=== PATIENT | female | born 1945 | race Caucasian/White ===

== ENCOUNTER 2017-03-12 08:47 | Day surgery (SDC) | payer MEDICARE, BC ==
[~2017-03-12 08:47] MED LIST: Buffered Lidocaine 0.9% SYRIN* 5 ML/SYR SYRINGE INTRADERM ONE; Famotidine IV* 10 MG/ML 2 ML (20 mg) IV ONE
[2017-03-12] MEDS ORDERED: Famotidine IV* 10 MG/ML 2 ML (20 mg) ONE (09:24)
[2017-03-12] MEDS ORDERED: fentaNYL* 50 MCG/ML 2 ML VIAL (100 MCG VIAL) ONE (09:35)
[2017-03-12] MEDS ORDERED: Midazolam* 1 MG/ML 2 ML VIAL (2 MG) ONE (09:35)
[2017-03-12] MEDS ORDERED: Oxymetazoline 0.05% NASAL SPR* 15 ML BTL ONE ×2 (09:44→10:18)
[2017-03-12] MEDS ORDERED: Lidocaine 4% TOPICAL* 50 ML TOP.SOLN ONE (10:18)
[2017-03-12] MEDS ORDERED: Lidocaine 1% MPF wEPI 200,000* 30 ML SDV ONE (10:18)
[2017-03-12] MEDS ORDERED: Bacitracin OINTMENT* 0.5% 0.5 oz TUBE ONE (10:19)
[2017-03-12] MEDS ORDERED: Lidocaine 2% PF * 5 ML VIAL ONE (11:07)
[2017-03-12] MEDS ORDERED: Propofol* 10 MG/ML 20 ML BTL IV PUSH ONE (11:07)
[2017-03-12] MEDS ORDERED: DiMENhydriNATE IV* 50 MG/ML VIAL ONE (11:07)
[2017-03-12] MEDS ORDERED: Ondansetron INJ* 2 MG/ML VIAL ONE (11:07)
[2017-03-12] MEDS ORDERED: Dexamethasone IV* 4 MG/ML 1 ML (4 MG) ONE (11:07)
[2017-03-12] MEDS ORDERED: Naloxone* 0.4 MG/ML 1 ML VIAL IV PRN (11:23)
[2017-03-12] MEDS ORDERED: Acetaminophen TAB* 325 MG PO PRN (11:23)
[2017-03-12] MEDS ORDERED: oxyCODONE TAB* 5 MG TAB PO PRN (11:23)
[2017-03-12] MEDS ORDERED: HYDROmorphone INJ* 1 MG/ML CARPUJECT SYRINGE IV PRN (11:23)
[2017-03-12] MEDS ORDERED: DiMENhydriNATE IV* 50 MG/ML VIAL IV PUSH PRN (11:23)
[2017-03-12 13:27] VITALS: BP 164/83
--- NOTE | 2017-03-13 09:17 | OP ---
DATE OF OPERATION: 03/12/17 - [facility] DATE OF : 41 SURGEON: Mahamed Ennis MD ANESTHESIA: General. PRE-OP DIAGNOSES: Polyp, left nasal cavity and chronic left ethmoid sinusitis. POST-OP DIAGNOSES: Polyp, left nasal cavity and chronic left ethmoid sinusitis. OPERATIVE PROCEDURE: Endoscopic resection of intranasal polyp with posterior ethmoidectomy on the left. EBL: Approximately 40 cc. SPECIMENS: Left sinus contents. INDICATIONS: This is a 71-year-old woman with a history of progressive left nasal airway obstruction. On exam in the office, she had a large burden of polyp in the posterior nasal cavity. CT scan revealed opacification of posterior ethmoid air cells with a large mass filling the nasal cavity. Decision was made to bring the patient to the operating room for endoscopic resection of her left nasal cavity polyp and sinus surgery. DESCRIPTION OF PROCEDURE: On 03/12/17, the patient was brought to the operating room. General anesthesia was induced and oral endotracheal tube was placed. The patient was draped and a time-out was performed. The left nasal cavity was previously decongested with Afrin and topicalized with lidocaine. Additional 1% lidocaine with epinephrine was then infiltrated into the left middle turbinate both at its body and at its root, the left lateral nasal wall and the polyp. There was what appeared to be 1 polypoid mass emanating from the posterior ethmoid region. This was removed piecemeal. It was tracked back up towards the skull base. A portion of the superior turbinate was removed, which facilitated exposure of the posterior ethmoid air cells, which were opened widely while obvious polypoid material was removed. There was no evidence of infection. There was some bleeding from the mucosal edge of the inferior extent of the dissection and an endoscopic bipolar was used to control that. Once good hemostasis was achieved, the patient was then returned to the care of the anesthesiologist, extubated, and delivered to the PACU in a stable condition. [id number] #: [id number] MTDD
== END 2017-03-12 13:27 | disposition home or self-care (01) ==
LOC: OR 08:47
PROVIDERS: ATTEND Otolaryngology
DX: J33.8 Other polyp of sinus (principal); J32.9 Chronic sinusitis, unspecified; E11.9 Type 2 diabetes mellitus without complications; Z79.84 Long term (current) use of oral hypoglycemic drugs; I10 Essential (primary) hypertension; E78.00 Pure hypercholesterolemia, unspecified; J45.909 Unspecified asthma, uncomplicated; M19.90 Unspecified osteoarthritis, unspecified site; H40.9 Unspecified glaucoma; J30.1 Allergic rhinitis due to pollen
CPT/HCPCS: 88305; A9270-GY; J1100; J1240; J2001; J2250; J2405; J2704; J3010

== ENCOUNTER 2017-07-31 07:45 | Emergency (ER) | payer MEDICARE, BC ==
--- OUTSIDE RECORDS SUMMARY | 2017-07-31 08:19 | XMS REPORT ---
:1945 External Reference #:[id number] Author Organization [facility] Address [address] [address] Phone [phone] Care Team Providers Name Role Phone Tin Allison MD Primary Care Physician Unavailable Payers Type Date Identification Numbers Payment Provider Subscriber Medicare Primary Policy Number: [id number] Medicare Daniel Cooper PayID: [id number] [address] [place] [address] Medigap Part B Policy Number: [id number] [employer]ets Daniel Cooper PayID: [id number] [address] [address] [place] [address] Problems Description No Information Family History Date Family Member(s) Problem(s) Comments General Heart Disease General Diabetes General Cancer Social History Type Date Description Comments Lives With Alone Occupation Retired ETOH Use Currently consumes alcohol Smoking Patient is a former smoker Stopped 20+ years ago Exercise Type/Frequency Exercises regularly Allergies, Adverse Reactions, Alerts Date Description Reaction Status Severity Comments 01/08/2014 Penicillin active 01/08/2014 Cephalosporins active 01/08/2014 Codeine active 01/08/2014 Tape active 10/03/2014 Tetracycline active Medications Medication Date Status Form Strength Qnty SIG Indications Ordering Provider Metformin HCL Active 500mg Unknown 000 Alphagan P Active Unknown 000 Avapro Active 150mg Unknown 000 Simvastatin Active mg Unknown 000 Fluoxetine HCL Active 20mg Unknown 000 Ibuprofen Active 600mg Unknown 000 Acetaminophen ER Active Unknown 000 Glucophage Active 5mg Unknown 000 Avapro Active Tablets 150mg 1 by Unknown 000 mouth every day Glipizide ER Hx Tablets ER 2.5mg 1 by Unknown 000 - 24HR mouth every 018 day Medications Administered in Office Medication Date Status Form Strength Qnty SIG Indications Ordering Provider Depomedrol Administered Injection Dirk Harmony, 40MG 018 M.D. Depomedrol Administered Injection Dirk Harmony, 40MG 018 M.D. Vital Signs Date Vital Result Comment 07/28/2017 Height 60.5 inches 5'0.50" Weight 203.00 lb BP Systolic 118 mmHg BP Diastolic 68 mmHg Respiratory Rate 20 /min Body Temperature 98.2 F Pain Level 4 BMI (Body Mass Index) 39.0 kg/m2 06/07/2017 Height 60.5 inches 5'0.50" Weight 203.00 lb BP Systolic 124 mmHg BP Diastolic 76 mmHg Respiratory Rate 20 /min Body Temperature 97.7 F Pain Level 5 BMI (Body Mass Index) 39.0 kg/m2 05/10/2017 Height 60.5 inches 5'0.50" Weight 203.00 lb BP Systolic 122 mmHg BP Diastolic 72 mmHg Respiratory Rate 20 /min Pain Level 4 BMI (Body Mass Index) 39.0 kg/m2 03/24/2017 Height 60.5 inches 5'0.50" Weight 203.00 lb Heart Rate 97 /min BP Systolic 148 mmHg BP Diastolic 76 mmHg Body Temperature 97.6 F BMI (Body Mass Index) 39.0 kg/m2 03/03/2017 Height 60.5 inches 5'0.50" Weight 203.00 lb BP Systolic 124 mmHg BP Diastolic 78 mmHg Respiratory Rate 20 /min Pain Level 4 BMI (Body Mass Index) 39.0 kg/m2 02/01/2017 Height 60.5 inches 5'0.50" Weight 203.00 lb BP Systolic 138 mmHg BP Diastolic 86 mmHg Respiratory Rate 14 /min Body Temperature 98.5 F Pain Level 5 BMI (Body Mass Index) 39.0 kg/m2 09/16/2016 Height 60.5 inches 5'0.50" Weight 203.00 lb Heart Rate 78 /min BP Systolic 140 mmHg BP Diastolic 76 mmHg Body Temperature 97.5 F Pain Level 1 BMI (Body Mass Index) 39.0 kg/m2 10/03/2014 Height 60 inches 5'0" Weight 215.00 lb Heart Rate 77 /min BP Systolic Sitting 127 mmHg BP Diastolic Sitting 76 mmHg Respiratory Rate 18 /min Pain Level 2 BMI (Body Mass Index) 42.0 kg/m2 02/26/2014 Height 60 inches 5'0" Weight 210.00 lb Pain Level 1 BMI (Body Mass Index) 41.0 kg/m2 01/29/2014 Height 60 inches 5'0" Weight 210.00 lb Pain Level 2 BMI (Body Mass Index) 41.0 kg/m2 01/08/2014 Height 60 inches 5'0" Weight 210.00 lb Heart Rate 74 /min BP Systolic 155 mmHg BP Diastolic 76 mmHg BMI (Body Mass Index) 41.0 kg/m2 Results Test Date Test Result H/L Range Note Laboratory test 03/12/2017 Point of Care 235 mg/dL High 70-100 1 finding Glucose Laboratory test 03/12/2017 Surgical Pathology SEE RESULT BELOW 2 finding Laboratory test 03/12/2017 Point of Care 220 mg/dL High 70-100 3 finding Glucose 1 Resource Coordinator: [id number] 2 SEE RESULT BELOW Name: COOPERDANIEL M : [address]: Mahamed Ennis MD Acct: [id number] Unit: [id number] AGE: 71 Location: OR Re03/12/17 SEX: F [place] [facility]C: [id number] TRIXIE: 03/12/17-[address] [facility] [address]: Mahamed Ennis MD REQ: [id number] RECD: 03/12/179 STATUS: SOUT _ ORDERED: LEVEL 4 FINAL DIAGNOSIS Left sinus, excision: -- Benign sinonasal polyp. -- Chronic sinusitis. PRE-OPERATIVE DIAGNOSIS Other polyp of sinus GROSS DESCRIPTION The specimen is received in formalin labeled, Left Sinus Contents, and consists of a 5.0 x 4.8 by up to 0.7 cm aggregate of white-pink filamentous to papilliferous multilocular fish-flesh colored rubbery tissue fragments admixed with translucent yellow lobulated rubbery tissue fragments. The specimen is filtered, differentially inked and serially sectioned and entirely submitted in cassettes A through G to include infiltrate in cassette G. Signed (signature on file) Lola Murphy MD 0857 END OF REPORT * ML=Testing performed at Main Lab DEPARTMENT OF PATHOLOGY, [address] [place] [address] Sergei Rose M.D. Director [facility] # [id number] 3 Resource Coordinator: [id number] Procedures Date CPT Code Description Status 07/28/2017 Inject/Drain Joint/Bursa Major Completed 06/07/2017 Inject/Drain Joint/Bursa Major Completed 03/03/2017 Inject/Drain Joint/Bursa Major Completed 01/29/2014 90457 Rad Shoulder Comp, Min. 2 Views Completed 01/08/2014 41422 Rad Shoulder Comp, Min. 2 Views Completed 01/08/2014 87101 Closed TX Of Greater Humeral Tuberosity FX;W/O Completed Manipulation 01/08/2014 21971 Closed trtmt prox humeral fx Completed Encounters Type Date Location Provider CPT E/M Dx Office Visit 06/07/2017 9:45a [facility] M.D. 57637 M17.11 [facility] Office Visit 05/10/2017 10:45a [facility] M.D. 16020 M17.11 [facility] Office Visit 03/24/2017 10:30a [facility] M.D. 73855 M17.11 [facility] M22.41 Office Visit 03/03/2017 10:45a [facility] M.D. 13834 S76.111A [facility] M17.11 Office Visit 02/01/2017 9:45a [facility] M.D. 09996 S76.111A [facility] Office Visit 09/16/2016 9:30a [facility] M.D. 25170 M17.11 [facility] Office Visit 10/03/2014 1:30p [facility] M.D. 32257 836.0 [facility] 715.96 Plan of Care Future Appointment(s):09/13/2017 9:45 am - [facility] Antunez M.D. at [facility]08/10/2017 7:30 am - JANNA Ni at [facility]08/10/2017 7:30 am - [facility]ar Antunez M.D. at [facility]07/28/2017 - [facility]ar Antunez M.D.M17.11 Unilateral primary osteoarthritis, right kneeNew Xrays:Kneeright 4+ VWSKnees BilateralFollow up:Follow up: to ORM17.12 Unilateral primary osteoarthritis, left kneeNew Xrays:Knees Bilateral
--- OUTSIDE RECORDS SUMMARY | 2017-07-31 08:23 | XMS REPORT ---
:1945 External Reference #:[id number] Author Organization [facility] Address [address] [place] [address] Phone [phone] Care Team Providers Name Role Phone Tin Allison M.D. Care Team Information Paperboard Boxes Estimator Unavailable Tin Allison M.D. Primary Care Physician Unavailable Payers Type Date Identification Numbers Payment Provider Subscriber Medicare Primary Effective: Policy Number: Medicare-National Patricia Cooper 2008 [id number] GVT.Sys PayID: [id number] [address] [place] [address] Medigap Part B Expires: 2009 Policy Number: BC/BS Of AUDRA Cooper [id number] Group Number: [id number] [address] PayID: [id number] [place] [address] Medigap Part B Effective: 2012 Policy Number: BC/BS Of AUDRA Cooper [id number] PayID: [id number] [address] [place] [address] Problems Date Description Provider Status Onset: 07/07/2016 Uncomplicated moderate persistent Zoie St M.D. Active asthma Onset: 01/15/2015 Chronic maxillary sinusitis Zoie St M.D. Active Onset: 01/08/[address] M.D. Active Onset: 12/25/2014 Allergic rhinitis due to animals Zoie St M.D. Active Onset: 12/11/2014 Body mass index 30+ - obesity SELENA Abrams Active Onset: 12/04/[address] M.D. Active Onset: 10/02/2014 Acute maxillary sinusitis Zoie St M.D. Active Onset: 06/26/2014 Extrinsic asthma without status Zoie St M.D. Active asthmaticus Onset: 06/26/2014 Allergic rhinitis due to pollen Zoie St M.D. Active Onset: 06/26/[address] M.D. 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 Has a window air conditioner Home Environment Stairs are present Home Environment The basement is dry Home Environment Unfinished Basement Home Environment Cotton Comforter Home Environment Mattress is 1 year old Home Environment Mattress is encased in an allergy proof case Home Environment Rubber Mattress Home Environment Pillows are encased in an allergy proof case Home Environment Pillows contain feathers Home Environment Pillows are polyester Home Environment Does not use a dehumidifier Home Environment There are draperies in the home Home Environment The home is not kandy Home Environment The floors are wood Home Environment The floors are carpeted Home Environment Uses natural gas heating Home Environment Uses baseboard heating Home Environment Uses electric heating Home Environment [place] Home Environment Water Source: Well Smoke-Free Home is smoke-free 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 albuterol Aerochamber 02/04/ Active Misc 1unit use as Radha Plus 2017 s KATHRYN Colindres Flovent HFA 02/03/ Active Aerosol 110mcg/Ac 12gm 2 puff J30.2 Zoie Garzon 2015 t inhalation Pieretti, twice a day M.D. Ventolin HFA 12/04/ Active Aerosol 108(90Bas 1unit 2 puffs Zoie Garzon 2014 e) s q4-6 hours Pieretti, mcg/Act as needed M.D. for shortness of breath, cough, wheezing and/or 15 min. prior to exercise Desloratadine 10/13/ Active Tablets 5mg 90tab one tablet Zoie Garzon 2012 s once daily Pieretti, by mouth M.D. Ibuprofen / Active Tablets 600mg Shallish, 0000 Tin, MLcD. Fluoxetine HCL / Active Capsules 20mg Shallish, 0000 Tin, MLcDLc Alphagan P / Active Solution 0.1% Arleo, 0000 MD Calr Metformin HCL / Active Tablets ER 500mg Shallish, ER 0000 24HR Tato Castle Irbesartan / Active Tablets 75MF once a day Shallish, 0000 every a Tin, other day M.D. Simvastatin / Active Tablets 10mg Shallish, 0000 Tin, MLcD. Fluticasone / Active Suspension 50mcg/Act 1 squirt Unknown Propionate 0000 each nostril daily Medications Administered in Office Medication Date Status Form Strength Qnty SIG Indications Ordering Provider Injection Administered Injection Allergy 018 Injection Injection Administered Injection Allergy 018 Injection Injection Administered Injection Allergy 018 Injection Injection Administered Injection Allergy 018 Injection Injection Administered Injection Allergy 018 Injection Injection Administered Injection Allergy 018 Injection Injection Administered Injection Allergy 018 Injection Injection Administered Injection Allergy 017 Injection Injection Administered Injection Allergy 017 Injection Injection Administered Injection Allergy 017 Injection Injection Administered Injection Allergy 017 Injection Injection Administered Injection Allergy 017 Injection Injection Administered Injection Allergy 017 Injection Injection Administered Injection Darby Jesus M.D. Injection Administered Injection Allergy 017 Injection Injection Administered Injection Allergy 017 Injection Injection Administered Injection Allergy 017 Injection Injection Administered Injection Allergy 017 Injection Injection Administered Injection Allergy 017 Injection Injection Administered Injection Murali Nava, 017 M.D. Injection Administered Injection Allergy 017 Injection Injection Administered Injection Allergy 017 Injection Injection Administered Injection Allergy 017 Injection Injection Administered Injection Murali Nava, 017 M.D. Injection Administered Injection Allergy 017 Injection Injection Administered Injection Murali Nava, 017 M.D. Injection Administered Injection Allergy 017 Injection Injection Administered Injection Allergy 017 Injection Injection Administered Injection Allergy 017 Injection Injection Administered Injection Allergy 017 Injection Injection Administered Injection Allergy 017 Injection Injection Administered Injection Allergy 017 Injection Injection Administered Injection Allergy 016 Injection Injection Administered Injection Allergy 016 Injection Injection Administered Injection Allergy 016 Injection Injection Administered Injection Allergy 016 Injection Injection Administered Injection Allergy 016 Injection Injection Administered Injection Allergy 016 Injection Injection Administered Injection Allergy 016 Injection Injection Administered Injection Allergy 016 Injection Injection Administered Injection Allergy 016 Injection Injection Administered Injection Allergy 016 Injection Injection Administered Injection Allergy 016 Injection Injection Administered Injection Murali Nava, 016 M.D. Injection Administered Injection Allergy 016 Injection Injection Administered Injection Allergy 016 Injection Injection Administered Injection Allergy 016 Injection Injection Administered Injection Allergy 016 Injection Injection Administered Injection Allergy 016 Injection Injection Administered Injection Allergy 016 Injection Injection Administered Injection Allergy 016 Injection Injection Administered Injection Allergy 016 Injection Injection Administered Injection Allergy 016 Injection Injection Administered Injection Allergy 016 Injection Injection Administered Injection Allergy 015 Injection Injection Administered Injection Allergy 015 Injection Injection Administered Injection Allergy 015 Injection Injection Administered Injection Allergy 015 Injection Injection Administered Injection Allergy 015 Injection Injection Administered Injection Allergy 015 Injection Injection Administered Injection Allergy 015 Injection Injection Administered Injection Allergy 015 Injection Injection Administered Injection Allergy 015 Injection Injection Administered Injection Allergy 015 Injection Injection Administered Injection Allergy 015 Injection Injection Administered Injection Allergy 015 Injection Injection Administered Injection Allergy 015 Injection Injection Administered Injection Allergy 015 Injection Injection Administered Injection Allergy 015 Injection Injection Administered Injection Allergy 015 Injection Injection Administered Injection Allergy 015 Injection Injection Administered Injection Allergy 015 Injection Injection Administered Injection Allergy 015 Injection Injection Administered Injection Allergy 015 Injection Injection Administered Injection Allergy 015 Injection Injection Administered Injection Allergy 015 Injection Injection Administered Injection Allergy 015 Injection Injection Administered Injection Allergy 015 Injection Injection Administered Injection Allergy 014 Injection Injection Administered Injection Allergy 014 Injection Injection Administered Injection Allergy 014 Injection Injection Administered Injection Lamont 014 Kendra, M.D. Injection Administered Injection Allergy 014 Injection Injection Administered Injection Lamont 014 Kendra, M.D. Injection Administered Injection Allergy 014 Injection Injection Administered Injection Lamont 014 Kendra, M.D. Injection Administered Injection Allergy 014 Injection Injection Administered Injection Lamont 014 Kendra, M.D. Injection Administered Injection Allergy 014 Injection Injection Administered Injection Allergy 014 Injection Injection Administered Injection Lamont 014 Kendra, M.D. Injection Administered Injection Allergy 014 Injection Injection Administered Injection Lamont 014 Kendra, M.D. Injection Administered Injection Allergy 014 Injection Injection Administered Injection Allergy 014 Injection Injection Administered Injection Allergy 014 Injection Injection Administered Injection Lamont 014 Kendra, M.D. Injection Administered Injection Allergy 014 Injection Injection Administered Injection Lamont 014 Kendra M.D. Injection Administered Injection Allergy 014 Injection Injection Administered Injection Lamont 014 Kendra M.D. Injection Administered Injection Allergy 014 Injection Injection Administered Injection Lamont 014 Kendra M.D. Injection Administered Injection Allergy 014 Injection Injection Administered Injection Allergy 014 Injection Injection Administered Injection Allergy 014 Injection Injection Administered Injection Lamont 014 Kendra M.D. Injection Administered Injection Allergy 014 Injection Injection Administered Injection Lamont 013 Kendra M.D. Injection Administered Injection Allergy 013 Injection Injection Administered Injection Lamont 013 Duran Gardner.D. Injection Administered Injection Allergy 013 Injection Injection Administered Injection Lamont 013 Duran Gardner.D. Injection Administered Injection Allergy 013 Injection Injection Administered Injection Lamont 013 Kendra M.DLc Injection Administered Injection Allergy 013 Injection Injection Administered Injection Zoie Duran St M.D. Injection Administered Injection Allergy 013 Injection Injection Administered Injection Lamont 013 Lizbeth GardnerDLc Injection Administered Injection Allergy 013 Injection Injection Administered Injection Lamont 013 Kendra M.D. Injection Administered Injection Allergy 013 Injection Injection Administered Injection Lamont 013 Kendra M.D. Injection Administered Injection Allergy 013 Injection Injection Administered Injection Lamont 013 Kendra M.D. Injection Administered Injection Allergy 013 Injection Injection Administered Injection Lamont 013 Kendra M.D. Injection Administered Injection Allergy 013 Injection Injection Administered Injection Lamont 013 Kendra M.D. Injection Administered Injection Allergy 013 Injection Injection Administered Injection Lamont 013 Kendra, M.D. Injection Administered Injection Allergy 013 Injection Injection Administered Injection Lamont 013 Kendra, M.D. Injection Administered Injection Allergy 013 Injection Injection Administered Injection Lamont 013 Kendra, M.D. Injection Administered Injection Unknown 013 Injection Administered Injection Lamont 013 Kendra, M.D. Injection Administered Injection Lamont 013 Kendra, M.D. Injection Administered Injection Lamont 013 Kendra, M.D. Injection Administered Injection Lamont 012 Kendra, M.D. Injection Administered Injection Lamont 012 Kendra, M.D. Injection Administered Injection Lamont 012 Kendra, M.D. Injection Administered Injection Lamont 012 Kendra, M.D. Injection Administered Injection Lamont 012 Kendra, M.D. Injection Administered Injection Lamont 012 Kendra, M.D. Injection Administered Injection Lamont 012 Kendra, M.D. Injection Administered Injection Lamont 012 Kendra, M.D. Injection Administered Injection Lamont 012 Kendra, M.D. Injection Administered Injection Lamont 012 Kendra, M.D. Injection Administered Injection Lamont 012 Kendra, M.D. Injection Administered Injection Lamont 012 Kendra, M.D. Injection Administered Injection Lamont 012 Kendra, M.D. Injection Administered Injection Lamont 012 Kendra, M.D. Injection Administered Injection Lamont 012 Kendra, M.D. Injection Administered Injection Lamont 012 Kendra, M.D. Injection Administered Injection Lamont 012 Kendra, M.D. Injection Administered Injection Lamont 012 Kendra, M.D. Injection Administered Injection Zoie St, M.D. Injection Administered Injection Lamont 011 Kendra, M.D. Injection Administered Injection Lamont 011 Kendra, M.D. Injection Administered Injection Lamont 011 Kendra, M.D. Injection Administered Injection Lamont 011 Kendra, M.D. Injection Administered Injection Lamont 011 Kendra, M.D. Injection Administered Injection Lamont 011 Kendra, M.D. Injection Administered Injection Lamont 011 Kendra, M.D. Injection Administered Injection Lamont 011 Kendra, M.D. Injection Administered Injection Lamont 011 Kendra, M.D. Injection Administered Injection Lamont 011 Kendra, M.D. Injection Administered Injection Lamont 011 Kendra, M.D. Injection Administered Injection Lamont 011 Kendra, M.D. Injection Administered Injection Lamont 011 Kendra, M.D. Injection Administered Injection Lamont 011 Kendra, M.D. Injection Administered Injection Lamont 011 Kendra, M.D. Injection Administered Injection Lamont 011 Kendra, M.D. Injection Administered Injection Lamont 011 Kendra, M.D. Injection Administered Injection Lamont 011 Kendra, M.D. Injection Administered Injection Lamont 011 Kendra, M.D. Injection Administered Injection Lamont 011 Kendra, M.D. Injection Administered Injection Lamont 011 Kendra, M.D. Injection Administered Injection Lamont 011 Kendra, M.D. Injection Administered Injection Lamont 011 Kendra, M.D. Injection Administered Injection Lamont 010 Kendra, M.D. Injection Administered Injection Lamont 010 Kendra, M.D. Injection Administered Injection Lamont 010 Kendra, M.D. Injection Administered Injection Lamont 010 Kendra, M.D. Injection Administered Injection Lamont 010 Kendra, M.D. Injection Administered Injection Lamont 010 Kendra, M.D. Injection Administered Injection Lamont 010 Kendra, M.D. Injection Administered Injection Zoie M 010 Maciel, M.D. Injection Administered Injection Lamont 010 Kendra, M.D. Injection Administered Injection Lamont 010 Kendra, M.D. Injection Administered Injection Lamont 010 Kendra, M.D. Injection Administered Injection Lamont 010 Kendra, M.D. Injection Administered Injection Lamont 010 Kendra, M.D. Injection Administered Injection Lamont 010 Kendra, M.D. Injection Administered Injection Lamont 010 Kendra, M.D. Injection Administered Injection Lamont 010 Kendra, M.D. Injection Administered Injection Lamont 010 Kendra, M.D. Injection Administered Injection Lamont 010 Kendra, M.D. Injection Administered Injection Lamont 010 Kendra, M.D. Injection Administered Injection Lamont 010 Kendra, M.D. Injection Administered Injection Lamont 010 Kendra, M.D. Injection Administered Injection Duran Olmedo.D. Injection Administered Injection Lamont 009 Kendra, M.D. Injection Administered Injection Lamont 009 Kendra, M.D. Injection Administered Injection Lamont 009 Kendra, M.D. Injection Administered Injection Lamont 009 Kendra, M.D. Injection Administered Injection Lamont 009 Kendra, M.D. Injection Administered Injection Lamont 009 Kendra, M.D. Injection Administered Injection Lamont 009 Kendra, M.D. Injection Administered Injection Lamont 009 Kendra, M.D. Injection Administered Injection Lamont 009 Kendra, M.D. Injection Administered Injection Lamont 009 Kendra, M.D. Injection Administered Injection Lamont 009 Kendra, M.D. Injection Administered Injection Lamont 009 Kendra, M.D. Injection Administered Injection Lamont 009 Kendra, M.D. Injection Administered Injection Lamont 009 Kendra, M.D. Injection Administered Injection Lamont 009 Kendra, M.D. Injection Administered Injection Lamont 009 Kendra, M.D. Injection Administered Injection Lamont 009 Kendra, M.D. Injection Administered Injection Lamont 009 Kendra, M.D. Injection Administered Injection Lamont 009 Kendra, M.D. Injection Administered Injection Lamont 009 Kendra, M.D. Injection Administered Injection Lamont 009 Kendra, M.D. Injection Administered Injection Lamont 008 Kendra, M.D. Injection Administered Injection Lamont 008 Kendra, M.D. Injection Administered Injection Lamont 008 Kendra, M.D. Injection Administered Injection Lamont 008 Kendra, M.D. Injection Administered Injection Lamont 008 Kendra, M.D. Injection Administered Injection Lamont 008 Kendra, M.D. Injection Administered Injection Lamont 008 Kendra, M.D. Injection Administered Injection Lamont 008 Kendra, M.D. Injection Administered Injection Lamont 008 Kendra, M.D. Injection Administered Injection Lamont 008 Kendra, M.D. Injection Administered Injection Lamont 008 Kendra, M.D. Injection Administered Injection Lamont 008 Kendra, M.D. Injection Administered Injection Lamont 008 Kendra, M.D. Injection 06/12/2 Administered Injection Lamont 008 Kendra, M.D. Injection Administered Injection Lamont 008 Kendra, M.D. Injection Administered Injection Lamont 008 Kendra, M.D. Injection Administered Injection Lamont 008 Kendra, M.D. Injection Administered Injection Lamont 008 Kendra, M.D. Injection Administered Injection Lamont 008 Kendra, M.D. Injection Administered Injection Lamont 008 Kendra, M.D. Injection Administered Injection Lamont 008 Kendra, M.D. Injection Administered Injection Lamont 008 Kendra, M.D. Injection Administered Injection Lamont 008 Kendra, M.D. Injection Administered Injection Lamont 008 Kendra, M.D. Injection Administered Injection Lamont 007 Kendra, M.D. Injection Administered Injection Lamont 007 Kendra, M.D. Injection Administered Injection Lamont 007 Kendra, M.D. Injection Administered Injection Lamont 007 Kendra, M.D. Injection Administered Injection Lamont 007 Kendra, M.D. Injection Administered Injection Lamont 007 Kendra, M.D. Injection Administered Injection Lamont 007 Kendra, M.D. Injection Administered Injection Lamont 007 Kendra, M.D. Injection Administered Injection Lamont 007 Kendra, M.D. Injection Administered Injection Lamont 007 Kendra, M.D. Injection Administered Injection Lamont 007 Kendra, M.D. Injection Administered Injection Lamont 007 Kendra, M.D. Injection Administered Injection Lamont 007 Kendra, M.D. Injection Administered Injection Lamont 007 Kendra, M.D. Injection Administered Injection Lamont 007 Kendra, M.D. Injection Administered Injection Lamont 007 Kendra, M.D. Injection Administered Injection Lamont 007 Kendra, M.D. Injection Administered Injection Lamont 006 Kendra, M.D. Injection Administered Injection Lamont 006 Kendra, M.D. Injection Administered Injection Lamont 006 Kendra, M.D. Injection Administered Injection Lamont 006 Kendra, M.D. Injection Administered Injection Lamont 006 Kendra, M.D. Injection Administered Injection Lamont 006 Kendra, M.D. Injection Administered Injection Lamont 006 Kendra, M.D. Injection Administered Injection Lamont 006 Kendra, M.D. Injection Administered Injection Lamont 006 Kendra, M.D. Injection Administered Injection Lamont 006 Kendra, M.D. Injection Administered Injection Lamont 006 Kendra, M.D. Injection Administered Injection Lamont 006 Kendra, M.D. Injection Administered Injection Lamont 006 Kendra, M.D. Injection Administered Injection Lamont 006 Kendra, M.D. Injection Administered Injection Lamont 006 Kendra, M.D. Injection Administered Injection Lamont 006 Kendra, M.D. Injection Administered Injection Lamont 006 Kendra, M.D. Injection Administered Injection Lamont 006 Kendra, M.D. Injection Administered Injection Lamont 006 Kendra, M.D. Injection Administered Injection Lamont 005 Kendra, M.D. Injection Administered Injection Lamont 005 Kendra, M.D. Injection Administered Injection Lamont 005 Kendra, M.D. Injection Administered Injection Lamont 005 Kendra, M.D. Injection Administered Injection Lamont 005 Kendra, M.D. Injection Administered Injection Lamont 005 Kendra, M.D. Injection Administered Injection Lamont 005 Kendra, M.D. Injection Administered Injection Lamont 005 Kendra, M.D. Injection Administered Injection Lamont 005 Kendra, M.D. Injection Administered Injection Lamont 005 Kendra, M.D. Injection Administered Injection Lamont 005 Kendra, M.D. Injection Administered Injection Lamont 005 Kendra, M.D. Injection Administered Injection Lamont 005 Kendra, M.D. Injection Administered Injection Lamont 005 Kendra, M.D. Injection Administered Injection Lamont 005 Kendra, M.D. Injection Administered Injection Lamont 005 Kendra, M.D. Injection Administered Injection Lamont 004 Kendra, M.D. Injection Administered Injection Lamont 004 Kendra, M.D. Injection Administered Injection Lamont 004 Kendra, M.D. Injection Administered Injection Lamont 004 Kendra, M.D. Injection Administered Injection Lamont 004 Kendra, M.D. Injection Administered Injection Lamont 004 Kendra, M.D. Injection Administered Injection Lamont 004 Kendra, M.D. Injection Administered Injection Lamont 004 Kendra, M.D. Injection Administered Injection Lamont 004 Kendra, M.D. Injection Administered Injection Lamont 004 Kendra, M.D. Injection Administered Injection Lamont 004 Kendra, M.D. Injection Administered Injection Lamont 004 Kendra, M.D. Injection Administered Injection Lamont 004 Kendra, M.D. Injection Administered Injection Lamont 004 Kendra, M.D. Injection Administered Injection Lamont 004 Kendra, M.D. Injection Administered Injection Lamont 004 Kendra, M.D. Injection Administered Injection Lamont 004 Kendra, M.D. Injection Administered Injection Lamont 004 Yazmin Gardner. Injection Administered Injection Lamont 003 Kendra M.D. Injection Administered Injection Lamont 003 Kendra M.D. Injection Administered Injection Lamont 003 Duran Gardner.D. Injection Administered Injection Lamont 003 Duran Gardner.D. Injection Administered Injection Lamont 003 Duran Gardner.D. Injection Administered Injection Lamont 003 Lizbeth GardnerD. Injection Administered Injection Lamont 003 Yazmin Gardner. Injection Administered Injection Lamont 003 Tato Gardner Immunizations CPT Code Status Date Vaccine Lot # 85802 Given Unknown Pneumococcal Vaccine 76161 Given Unknown Pneumococcal Vaccine 79086 Given Unknown Influenza Vaccine 02456 Given Unknown Influenza Vaccine 19712 Given Unknown Influenza Vaccine 33201 Given Unknown Influenza Vaccine 01107 Given Unknown Influenza Vaccine 01392 Given Unknown Influenza Vaccine Vital Signs Date Vital Result Comment 06/29/2017 Height 60.5 inches 5'0.50" Weight 215.00 lb Weight in kg's 97.524 Respiratory Rate 16 /min Heart Rate 74 /min O2 % BldC Oximetry 96 % BP Systolic 132 mmHg BP Diastolic 77 mmHg Asthma Control Test 24 BMI (Body Mass Index) 41.3 kg/m2 04/13/2017 Height 60.5 inches 5'0.50" Weight 212.00 lb Weight in kg's 96.163 Respiratory Rate 16 /min Heart Rate 85 /min O2 % BldC Oximetry 97 % BP Systolic 113 mmHg BP Diastolic 67 mmHg Asthma Control Test 25 BMI (Body Mass Index) 40.7 kg/m2 01/05/2017 Height 60.5 inches 5'0.50" Weight 208.00 lb Weight in kg's 94.349 Respiratory Rate 18 /min Heart Rate 79 /min Body Temperature 97.9 F O2 % BldC Oximetry 97 % BP Systolic 142 mmHg BP Diastolic 80 mmHg Asthma Control Test 25 BMI (Body Mass Index) 39.9 kg/m2 07/07/2016 Height 60.5 inches 5'0.50" Weight 204.00 lb Weight in kg's 92.534 Respiratory Rate 16 /min Heart Rate 76 /min O2 % BldC Oximetry 97 % BP Systolic 127 mmHg BP Diastolic 71 mmHg Asthma Control Test 25 BMI (Body Mass Index) 39.2 kg/m2 05/05/2016 Height 61 inches 5'1" Weight 188.00 lb Weight in kg's 85.277 Respiratory Rate 16 /min Heart Rate 74 /min O2 % BldC Oximetry 95 % BP Systolic 130 mmHg BP Diastolic 74 mmHg Asthma Control Test 25 BMI (Body Mass Index) 35.5 kg/m2 02/04/2016 Height 61 inches 5'1" Weight 193.00 lb Weight in kg's 87.545 Respiratory Rate 26 /min Heart Rate 75 /min O2 % BldC Oximetry 97 % BP Systolic 104 mmHg BP Diastolic 62 mmHg Asthma Control Test 25 BMI (Body Mass Index) 36.5 kg/m2 01/15/2015 Height 61 inches 5'1" Weight 205.00 lb patient states Weight in kg's 92.988 Respiratory Rate 16 /min Heart Rate 80 /min O2 % BldC Oximetry 95 % BP Systolic 107 mmHg BP Diastolic 64 mmHg Asthma Control Test 25 BMI (Body Mass Index) 38.7 kg/m2 01/08/2015 Height 61 inches 5'1" Weight 210.00 lb Weight in kg's 95.256 Respiratory Rate 18 /min Heart Rate 69 /min O2 % BldC Oximetry 97 % BP Systolic 126 mmHg BP Diastolic 69 mmHg BMI (Body Mass Index) 39.7 kg/m2 12/25/2014 Height 61 inches 5'1" patient stated Weight 210.00 lb patient states Weight in kg's 95.256 Respiratory Rate 12 /min Heart Rate 75 /min O2 % BldC Oximetry 96 % BP Systolic 125 mmHg BP Diastolic 79 mmHg Asthma Control Test 23 BMI (Body Mass Index) 39.7 kg/m2 12/11/2014 Height 61 inches 5'1" patient stated Weight 210.00 lb patient stated Weight in kg's 95.256 Respiratory Rate 20 /min Heart Rate 75 /min Body Temperature 97.8 F O2 % BldC Oximetry 98 % BP Systolic 112 mmHg BP Diastolic 59 mmHg Asthma Control Test 22 BMI (Body Mass Index) 39.7 kg/m2 12/04/2014 Height 61 inches 5'1" patient stated Weight 210.00 lb patient stated Weight in kg's 95.256 Respiratory Rate 16 /min Heart Rate 76 /min Body Temperature 98.1 F O2 % BldC Oximetry 96 % BP Systolic 105 mmHg BP Diastolic 64 mmHg Asthma Control Test 22 BMI (Body Mass Index) 39.7 kg/m2 10/02/2014 Height 60.5 inches 5'0.50" Weight 210.00 lb refused Weight in kg's 95.256 Respiratory Rate 18 /min Heart Rate 85 /min O2 % BldC Oximetry 97 % BP Systolic 113 mmHg BP Diastolic 62 mmHg BMI (Body Mass Index) 40.3 kg/m2 06/26/2014 Height 60.5 inches 5'0.50" per pt Weight 210.00 lb per pt Weight in kg's 95.256 Respiratory Rate 18 /min Heart Rate 88 /min O2 % BldC Oximetry 95 % BP Systolic 144 mmHg BP Diastolic 76 mmHg Asthma Control Test 23 BMI (Body Mass Index) 40.3 kg/m2 01/10/2013 Height 60.5 inches 5'0.50" Weight 225.00 lb Weight in kg's 102.060 Respiratory Rate 12 /min Heart Rate 79 /min O2 % BldC Oximetry 98 % BP Systolic 149 mmHg BP Diastolic 82 mmHg BMI (Body Mass Index) 43.2 kg/m2 12/06/2012 Weight 225.00 lb Weight in kg's 102.060 Respiratory Rate 16 /min Heart Rate 87 /min O2 % BldC Oximetry 96 % 11/21/2012 Height 60.5 inches 5'0.50" Weight 225.00 lb Weight in kg's 102.060 Respiratory Rate 18 /min Heart Rate 92 /min O2 % BldC Oximetry 98 % BMI (Body Mass Index) 43.2 kg/m2 11/08/2012 Height 60.5 inches 5'0.50" Weight 225.00 lb Weight in kg's 102.060 Respiratory Rate 18 /min Heart Rate 95 /min O2 % BldC Oximetry 96 % BMI (Body Mass Index) 43.2 kg/m2 Results Test Date Test Result H/L Range Note Laboratory test finding 04/02/2015 Point of Care Glucose 161 mg/dL High 74 -106 1 1 [facility]: [id number] SORAYA ANA Procedures Date CPT Code Description Status 06/29/2017 22795 Injection Completed 06/29/2017 99933 Pre PFT Completed 06/29/2017 34216 Pre PFT Completed 06/22/2017 13756 Injection Completed 06/17/2017 45471 Injection Completed 06/08/2017 78570 Injection Completed 06/01/2017 56759 Injection Completed 04/13/2017 56372 Extract 1-10 Completed 04/13/2017 13311 Injection Completed 04/13/2017 29089 Pre PFT Completed 03/18/2017 38916 Injection Completed 02/16/2017 19575 Injection Completed 01/26/2017 55957 Injection Completed 01/05/2017 52587 Pre PFT Completed 01/05/2017 07198 Injection Completed 12/15/2016 54941 Injection Completed 11/24/2016 12223 Injection Completed 11/10/2016 57228 Injection Completed 10/27/2016 78496 Injection Completed 10/27/2016 27423 Injection Completed 10/15/2016 70781 Extract 1-10 Completed 10/15/2016 01863 Injection Completed 09/22/2016 29403 Injection Completed 09/08/2016 48351 Injection Completed 08/25/2016 43101 Injection Completed 08/11/2016 24882 Injection Completed 08/11/2016 35808 Injection Completed 07/21/2016 16703 Injection Completed 07/07/2016 86114 Injection Completed 06/30/2016 91999 Injection Completed 06/30/2016 28559 Injection Completed 06/16/2016 06492 Injection Completed 06/16/2016 98904 Injection Completed 06/11/2016 07725 Injection Completed 05/05/2016 33108 Extract 1-10 Completed 05/05/2016 79414 Injection Completed 04/21/2016 87465 Injection Completed 03/25/2016 07933 Injection Completed 03/05/2016 02614 Injection Completed 02/11/2016 55014 Injection Completed 02/04/2016 36335 Injection Completed 02/04/2016 60132 Pre PFT Completed 01/28/2016 34561 Injection Completed 01/09/2016 17910 Injection Completed 01/07/2016 95278 Injection Completed 01/01/2016 96762 Injection Completed 12/18/2015 78944 Injection Completed 12/03/2015 07414 Injection Completed 11/19/2015 87443 Injection Completed 11/05/2015 64597 Injection Completed 10/15/2015 17367 Injection Completed 10/01/2015 96352 Injection Completed 10/01/2015 70767 Injection Completed 09/10/2015 47061 Injection Completed 08/26/2015 84652 Injection Completed 08/06/2015 55845 Injection Completed 07/09/2015 36770 Injection Completed 06/13/2015 87495 Injection Completed 05/28/2015 07430 Extract 1-10 Completed 05/28/2015 70874 Injection Completed 04/30/2015 17910 Injection Completed 04/16/2015 66040 Injection Completed 03/26/2015 64092 Injection Completed 02/26/2015 85024 Injection Completed 02/05/2015 00392 Injection Completed 01/15/2015 78332 Injection Completed 12/25/2014 47797 Injection Completed 12/25/2014 58117 Pre PFT Completed 12/11/2014 08958 Extract 1-10 Completed 12/11/2014 07689 Injection Completed 11/27/2014 98219 Injection Completed 11/13/2014 15315 Injection Completed 10/30/2014 63327 Injection Completed 10/18/2014 00263 Injection Completed 10/08/2014 04585 Injection Completed 10/02/2014 76918 Injection Completed 09/27/2014 61650 Injection Completed 09/18/2014 13213 Injection Completed 09/11/2014 04588 Injection Completed 08/28/2014 84424 Extract 1-10 Completed 08/21/2014 27746 Injection Completed 08/07/2014 28892 Injection Completed 07/24/2014 06894 Injection Completed 07/10/2014 46275 Injection Completed 06/26/2014 51997 Injection Completed 06/26/2014 48771 Pulmonary Function Test Completed 06/05/2014 15420 Injection Completed 05/08/2014 59411 Injection Completed 04/24/2014 58880 Injection Completed 04/03/2014 53634 Injection Completed 03/13/2014 41610 Injection Completed 02/27/2014 45956 Injection Completed 02/06/2014 06459 Injection Completed 01/23/2014 06750 Extract 1-10 Completed 01/18/2014 69153 Injection Completed 12/19/2013 26501 Injection Completed 12/19/2013 68253 Injection Completed 12/05/2013 68010 Injection Completed 12/05/2013 14766 Injection Completed 11/16/2013 12529 Injection Completed 11/16/2013 86420 Injection Completed 10/31/2013 26924 Injection Completed 10/31/2013 07424 Injection Completed 10/17/2013 75706 Injection Completed 09/26/2013 30944 Injection Completed 09/26/2013 61164 Injection Completed 09/12/2013 70694 Injection Completed 09/12/2013 17339 Injection Completed 08/29/2013 85852 Injection Completed 08/15/2013 53322 Injection Completed 08/01/2013 53645 Injection Completed 08/01/2013 01014 Injection Completed 07/27/2013 82891 Extract 1-10 Completed 07/18/2013 95052 Injection Completed 07/18/2013 00181 Injection Completed 06/20/2013 91089 Injection Completed 06/20/2013 89793 Injection Completed 06/01/2013 47107 Injection Completed 06/01/2013 98242 Injection Completed 05/02/2013 87729 Injection Completed 04/04/2013 40448 Injection Completed 03/09/2013 99234 Injection Completed 03/09/2013 18126 Injection Completed 01/31/2013 09314 Injection Completed 01/31/2013 69855 Injection Completed 01/10/2013 63236 Pulmonary Function Test Completed 01/10/2013 49464 Injection Completed 01/10/2013 76767 Injection Completed 12/20/2012 53824 Injection Completed 12/20/2012 78168 Injection Completed 11/29/2012 96720 Extract 1-10 Completed 11/29/2012 98745 Injection Completed 11/29/2012 51279 Injection Completed 11/21/2012 57999 Oxygen Level - Pulse Oximiter Completed 11/08/2012 77375 Injection Completed 11/08/2012 87228 Injection Completed 11/08/2012 70806 Oxygen Level - Pulse Oximiter Completed 10/25/2012 80555 Injection Completed 10/25/2012 79443 Injection Completed 10/04/2012 27517 Injection Completed 10/04/2012 58224 Injection Completed 09/13/2012 15361 Injection Completed 09/13/2012 95182 Injection Completed 08/30/2012 06503 Injection Completed 08/30/2012 74339 Injection Completed 08/11/2012 39525 Injection Completed 08/11/2012 87020 Injection Completed 07/21/2012 32476 Injection Completed 07/21/2012 63664 Injection Completed 06/28/2012 55392 Injection Completed 06/28/2012 21642 Injection Completed 06/09/2012 61481 Extract 1-10 Completed 05/31/2012 53521 Injection Completed 05/31/2012 08714 Injection Completed 05/17/2012 38501 Injection Completed 05/17/2012 41194 Injection Completed 04/26/2012 02684 Injection Completed 03/22/2012 16455 Injection Completed 03/03/2012 18779 Injection Completed 02/02/2012 07439 Injection Completed 01/05/2012 19949 Injection Completed 12/15/2011 30596 Injection Completed 12/03/2011 30982 Injection Completed 11/10/2011 92192 Extract 1-10 Completed 11/10/2011 83496 Injection Completed 10/27/2011 67956 Injection Completed 10/06/2011 43242 Injection Completed 09/22/2011 12253 Injection Completed 09/01/2011 35723 Injection Completed 08/18/2011 01190 Injection Completed 08/04/2011 04723 Injection Completed 07/14/2011 52564 Injection Completed 07/14/2011 97293 Oxygen Level - Pulse Oximiter Completed 07/14/2011 28677 Pulmonary Function Test Completed 07/02/2011 83803 Injection Completed 06/16/2011 24026 Injection Completed 06/01/2011 06363 Injection Completed 05/05/2011 42614 Injection Completed 04/02/2011 40705 Injection Completed 03/05/2011 79645 Injection Completed 02/03/2011 78289 Injection Completed 01/27/2011 52712 Injection Completed 01/13/2011 58203 Injection Completed 01/06/2011 45425 Injection Completed 12/23/2010 35934 Injection Completed 12/16/2010 04476 Injection Completed 12/02/2010 96204 Injection Completed 12/02/2010 12985 Extract 1-10 Completed 11/13/2010 05592 Injection Completed 10/30/2010 21478 Injection Completed 10/16/2010 85675 Injection Completed 09/25/2010 15641 Injection Completed 09/09/2010 23338 Injection Completed 08/26/2010 98935 Injection Completed 08/12/2010 98279 Injection Completed 07/31/2010 03447 Injection Completed 07/16/2010 07415 Injection Completed 07/09/2010 84806 Injection Completed 06/30/2010 18451 Injection Completed 06/23/2010 87450 Injection Completed 06/16/2010 72840 Injection Completed 05/07/2010 28363 Injection Completed 04/14/2010 37990 Injection Completed 03/31/2010 08830 Injection Completed 03/17/2010 04496 Injection Completed 02/17/2010 01624 Injection Completed 02/03/2010 99584 Injection Completed 01/16/2010 89851 Injection Completed 12/31/2009 65291 Injection Completed 12/17/2009 71381 Injection Completed 12/03/2009 12175 Injection Completed 11/14/2009 87921 Injection Completed 11/05/2009 82649 Injection Completed 11/01/2009 47864 Injection Completed 10/17/2009 58152 Injection Completed 10/09/2009 30752 Injection Completed 09/25/2009 35644 Injection Completed 09/11/2009 04009 Injection Completed 08/29/2009 76456 Injection Completed 08/07/2009 04487 Injection Completed 07/18/2009 60848 Injection Completed 07/04/2009 25023 Pulmonary Function Test Completed 07/04/2009 02078 Injection Completed 06/25/2009 50164 Injection Completed 05/23/2009 83294 Injection Completed 04/30/2009 57317 Injection Completed 04/04/2009 48024 Injection Completed 03/14/2009 48451 Injection Completed 02/18/2009 36467 Injection Completed 01/31/2009 34785 Injection Completed 01/01/2009 94304 Injection Completed 12/11/2008 13881 Injection Completed 11/21/2008 66149 Injection Completed 10/31/2008 42551 Injection Completed 10/18/2008 08149 Injection Completed 10/04/2008 03398 Injection Completed 09/25/2008 60413 Injection Completed 09/13/2008 23600 Injection Completed 09/06/2008 17292 Injection Completed 09/03/2008 63316 Extract 1-10 Completed 08/23/2008 11842 Injection Completed 08/16/2008 86317 Injection Completed 08/02/2008 36116 Injection Completed 07/26/2008 38749 Injection Completed 07/18/2008 75412 Extract 1-10 Completed 07/17/2008 07625 Injection Completed 06/21/2008 13090 Injection Completed 06/06/2008 96364 Injection Completed 05/07/2008 36710 Injection Completed 04/03/2008 44633 Injection Completed 03/06/2008 50035 Injection Completed 02/09/2008 46693 Injection Completed 01/11/2008 16371 Injection Completed 01/10/2008 54632 Extract 1-10 Completed 12/14/2007 60653 Injection Completed 11/30/2007 66159 Injection Completed 11/16/2007 15014 Injection Completed 11/03/2007 52971 Injection Completed 10/20/2007 93385 Injection Completed 10/06/2007 53205 Injection Completed 09/27/2007 98388 Injection Completed 09/15/2007 12573 Injection Completed 09/01/2007 77828 Injection Completed 08/26/2007 20872 Extract 1-10 Completed 08/25/2007 15259 Injection Completed 08/18/2007 96108 Injection Completed 08/11/2007 03916 Injection Completed 08/04/2007 57992 Injection Completed 07/28/2007 11097 Injection Completed 07/14/2007 94266 Injection Completed 06/30/2007 47477 Injection Completed 06/23/2007 52549 Injection Completed 06/16/2007 86424 Injection Completed 06/08/2007 28752 Extract 1-10 Completed 06/07/2007 71202 Injection Completed 04/28/2007 66273 Injection Completed 03/31/2007 95468 Injection Completed 03/03/2007 20548 Injection Completed 02/03/2007 37562 Injection Completed 01/06/2007 71206 Injection Completed 12/16/2006 78095 Injection Completed 12/02/2006 98341 Injection Completed 11/18/2006 21979 Injection Completed 11/04/2006 22684 Injection Completed 11/03/2006 70211 Extract 1-10 Completed 10/14/2006 90851 Injection Completed 09/30/2006 48657 Injection Completed 09/13/2006 79994 Injection Completed 08/19/2006 39690 Injection Completed 07/29/2006 11570 Injection Completed 07/15/2006 40093 Injection Completed 07/01/2006 48440 Injection Completed 06/17/2006 48645 Injection Completed 06/16/2006 09096 Extract 1-10 Completed 05/17/2006 34012 Injection Completed 04/19/2006 72285 Injection Completed 03/18/2006 48266 Injection Completed 01/28/2006 20981 Injection Completed 01/07/2006 26548 Injection Completed 12/31/2005 50394 Injection Completed 12/08/2005 07587 Injection Completed 11/12/2005 17106 Injection Completed 10/29/2005 98377 Extract 1-10 Completed 10/28/2005 44369 Injection Completed 10/15/2005 39574 Injection Completed 10/01/2005 20282 Injection Completed 09/17/2005 40338 Injection Completed 09/03/2005 27021 Injection Completed 08/11/2005 74393 Injection Completed 07/30/2005 02130 Injection Completed 07/15/2005 05507 Injection Completed 06/30/2005 86375 Injection Completed 06/16/2005 04679 Injection Completed 06/15/2005 86581 Extract 1-10 Completed 05/26/2005 97427 Injection Completed 05/05/2005 10252 Injection Completed 04/14/2005 55167 Injection Completed 03/09/2005 58845 Injection Completed 02/24/2005 06048 Injection Completed 01/29/2005 82194 Injection Completed 01/09/2005 61885 Injection Completed 12/16/2004 63621 Injection Completed 11/07/2004 53183 Injection Completed 10/24/2004 59470 Injection Completed 10/23/2004 18739 Extract 1-10 Completed 10/08/2004 02850 Injection Completed 09/16/2004 42796 Extract 1-10 Completed 09/16/2004 97739 Injection Completed 09/02/2004 91504 Extract 1-10 Completed 09/02/2004 36373 Injection Completed 08/19/2004 51015 Extract 1-10 Completed 08/19/2004 92629 Injection Completed 08/05/2004 86674 Extract 1-10 Completed 08/05/2004 03454 Injection Completed 07/15/2004 01164 Injection Completed 07/15/2004 42605 Extract 1-10 Completed 07/01/2004 04422 Immunotherapy Completed 06/17/2004 27590 Immunotherapy Completed 06/03/2004 49796 Extract 1-10 Completed 06/03/2004 03853 Injection Completed 05/22/2004 61089 Injection Completed 05/13/2004 40363 Pulmonary Function Test Completed 04/04/2004 79454 Extract 1-10 Completed 04/04/2004 57021 Injection Completed 03/21/2004 54693 Extract 1-10 Completed 03/21/2004 96691 Injection Completed 02/28/2004 75765 Injection Completed 02/28/2004 19498 Extract 1-10 Completed 01/31/2004 37201 Extract 1-10 Completed 01/31/2004 90858 Injection Completed 01/03/2004 91864 Extract 1-10 Completed 01/03/2004 27004 Injection Completed 12/20/2003 04793 Extract 1-10 Completed 12/20/2003 15071 Injection Completed 12/07/2003 31214 Extract 1-10 Completed 12/07/2003 02983 Injection Completed 11/06/2003 87302 Ippb Completed 11/01/2003 93003 Extract 1-10 Completed 11/01/2003 99032 Injection Completed 10/16/2003 24698 Injection Completed 10/16/2003 39324 Extract 1-10 Completed 10/02/2003 36798 Extract 1-10 Completed 10/02/2003 74795 Injection Completed 09/18/2003 07751 Extract 1-10 Completed 09/18/2003 84567 Injection Completed 08/28/2003 26224 Extract 1-10 Completed 08/28/2003 89011 Injection Completed 08/16/2003 02328 Extract 1-10 Completed 08/16/2003 85366 Injection Completed 07/31/2003 01494 Injection Completed 07/17/2003 98874 Injection Completed 07/17/2003 81385 Extract 1-10 Completed 07/03/2003 86007 Extract 1-10 Completed 07/03/2003 03141 Injection Completed 2003 77118 Extract 1-10 Completed 2003 08772 Injection Completed 05/17/2003 92640 Injection Completed 04/10/2003 68930 Extract 1-10 Completed 04/10/2003 73299 Injection Completed 03/23/2003 11799 Extract 1-10 Completed 03/23/2003 74695 Injection Completed 02/20/2003 15844 Extract 1-10 Completed 02/20/2003 10400 Injection Completed 01/23/2003 43877 Injection Completed 01/23/2003 23261 Extract 1-10 Completed 12/27/2002 16754 Extract 1-10 Completed 12/27/2002 86191 Injection Completed 12/05/2002 65217 Extract 1-10 Completed 12/05/2002 93251 Injection Completed 11/21/2002 26564 Extract 1-10 Completed 11/21/2002 44140 Injection Completed 10/24/2002 06630 Extract 1-10 Completed 10/24/2002 86871 Injection Completed 10/13/2002 80106 Extract 1-10 Completed 10/13/2002 41206 Injection Completed 09/26/2002 98394 Injection Completed Encounters Type Date Location Provider CPT E/M Dx Office Visit 06/29/2017 11:40a [facility] M.D. 90412 J32.9 J45.40 J30.89 J30.81 J30.2 J30.1 Office Visit 04/13/2017 11:40a [facility] M.D. 94265 J30.81 J30.89 J45.40 J32.9 J30.2 J33.9 J30.1 Office Visit 01/05/2017 8:40a [facility] [address] M.D. 26504 J30.2 J30.1 J30.81 J30.89 J45.40 J32.9 Office Visit 07/07/2016 11:00a [facility] [address] M.D. 22547 J30.2 J30.1 J45.40 Z68.39 Office Visit 05/05/2016 2:40p [facility] Carolyne Jolly [employer]IST-C 67980 R43.0 J45.40 Z68.35 J30.1 J30.2 J30.81 Office Visit 02/04/2016 11:00a [facility] M.D. 79776 J30.2 J30.1 J30.89 J30.81 J32.0 J45.40 Z68.36 Office Visit 01/15/2015 2:40p [facility] M.D. 37221 J32.0 J30.81 J30.2 J30.89 J30.1 J45.40 Z68.38 Office Visit 01/08/2015 11:40a [facility] M.D. 65012 J30.81 J45.40 J30.1 J32.9 Z68.37 Office Visit 12/25/2014 4:40p [facility] [address] M.D. 03545 J30.81 Z68.39 J30.2 J30.89 J30.1 J45.40 Office Visit 12/11/2014 2:00p [facility] [address]259 J30.2 J30.1 J01.01 J45.40 Z68.39 Office Visit 12/04/2014 11:00a [facility] M.D. 66851 J30.1 J30.2 J01.01 J45.40 Z68.39 Office Visit 10/02/2014 11:00a [facility] [address] M.D. 23633 477.0 477.8 493.00 461.0 V85.41 Office Visit 06/26/2014 11:40a [facility] [address] [facility] M.D. 86677 477.8 477.0 493.00 Office Visit 01/10/2013 2:20p [facility] JOSE Martinez 94878 477.8 477.0 493.00 Office Visit 12/06/2012 2:00p [facility] JOSE Martinez 89497 477.0 493.00 477.8 Office Visit 11/21/2012 3:20p [facility] Jackie Mckeon [facility] 11701 477.0 493.00 Office Visit 11/08/2012 9:20a [facility] [address] M.D. 25717 477.0 477.8 493.00 Office Visit 01/05/2012 11:22a [facility] Lamont Gardner M.D. 59051 477.0 477.8 Office Visit 11/05/2009 3:40p [facility] M.D. 85136 477.0 477.8 Office Visit 06/18/2009 4:20p [facility] [address] [facility] M.D. 17172 477.0 477.8 Office Visit 08/02/2008 11:30a [facility] Lamont Gardner M.D. 31323 477.0 477.8 Office Visit 04/08/2006 2:15p [facility] Dmitry Smith M.D. 23795 477.0 477.8 Office Visit 11/15/2003 9:00a [facility] Lamont Gardner M.D. 85593 477.0 477.8 Plan of Care Future Appointment(s):01/11/2018 11:00 am - [facility] M[facility]/13/2017 12:15 pm - Allergy Injection at [facility]06/29/2017 - [facility] [address] M.D.J30.2 Other seasonal allergic [id number] Allergic rhinitis due to [id number] Allergic rhinitis due to animal (cat) (dog) hair and pjzqdtG86.89 Other allergic hzdqospfF32.40 Moderate persistent asthma, oxyonvtvegjffV92.9 Chronic sinusitis, unspecifiedNew Medication:Aerochamber Plus Flow VuFollow up:6 months, CHECK-UP/FOLLOW UP VISIT: Continued management of patient's medical care. pre-PFTRecommendations:pre-PFT reviewed continue Flovent 110 2 puffs twice daily; rinse mouth after use use Albuterol 2 puffs every 4 hours as needed for cough, shortness of breath or chest tightness; call if consistently using >2x/week continue ENT f/u continue Fluticasone 2 sprays to each nostril once daily continue sinus rinses as needed continue Clarinex once daily as needed okay to continue IT
[2017-07-31] MEDS ORDERED: Losartan TAB* 25 MG PO ONE (08:56)
[2017-07-31] MEDS ORDERED: metFORMIN* 500 MG TAB PO ONE (08:57)
[2017-07-31] MEDS ORDERED: Acetaminophen TAB* 325 MG PO ONE (08:59)
[2017-07-31 09:20] LABS: Urine Appearance Clear; Urine Blood 1+ (Negative); Urine Color Straw; Urine Ketones Negative (Negative); Urine Protein Negative (Negative); Urine Specific Gravity 1.011 (1.010-1.030); Urine Urobilinogen Negative (Negative)
--- NOTE | 2017-07-31 09:49 | RAD ---
Indication: Pain RIGHT side of head post fall. Comparison: No relevant prior exams available on the [facility] PACS for comparison. Technique: Noncontrast CT vertex of skull through foramen magnum. Report: Moderate prominence of the cerebral sulci and mild prominence of the cerebellar fissures reflecting atrophy. Proportional enlargement of the ventricles. Patent basal cisterns. Negative for field matter white matter obscuration, intra or extra-axial hemorrhage, or mass effect. Unremarkable orbital contents. Negative for calvarial or skull base fracture. Clear paranasal sinuses and mastoid air spaces. Mild RIGHT frontal scalp hematoma. IMPRESSION: 1. Mild RIGHT frontal scalp hematoma. Negative for fracture or CT evidence for traumatic brain injury. 2. Moderate involutional change.
--- NOTE | 2017-07-31 09:59 | RAD ---
INDICATION: Fall. RIGHT frontal scalp hematoma. COMPARISON: No relevant prior exams available on the [facility] for comparison. TECHNIQUE: Multidetector CT images foramen magnum to lung apices without contrast. Multiplanar reformation. REPORT: Normal vertebral alignment accounting for exam positioning without spondylolisthesis or subluxation at any level. Negative for cervical vertebral body or posterior element fracture. Negative for paravertebral hematoma. Multilevel degenerative spondylosis and facet joint osteoarthritis. At C3-C4 uncinate process spurring and facet joint osteoarthritis results in mild LEFT foraminal stenosis. At C4-C5 uncinate process spurring and facet joint osteoarthritis results in moderate bilateral foraminal stenosis. At C5-C6 dorsal disc osteophyte complex results in mild impression on the ventral margin of the thecal sac. Uncinate process spurring and facet joint osteoarthritis results in moderate bilateral foraminal stenosis. At C6-C7 dorsal disc osteophyte complex results in very mild impression on the ventral margin of the thecal sac and uncinate process spurring and facet joint osteoarthritis results in mild RIGHT and moderate LEFT foraminal stenosis. At C7-T1 uncinate process spurring and facet joint osteoarthritis results in moderate LEFT foraminal stenosis. Variant medial deviation of the common carotid arteries noted with symmetric paramidline location posterior to the pharynx. Partially visualized large LEFT adrenal nodule measuring up to 2.8 cm maximum dimension is grossly unchanged compared with the 2015 exam however is enlarged compared with a more remote exam of April 22, 2008. IMPRESSION: 1. No CT evidence for traumatic cervical spine injury. 2. Multilevel degenerative spondylosis and facet joint osteoarthritis with resulting foraminal greater than central canal stenosis as described without significant change compared with the 2015 exam. 3. Consider nonemergent thyroid ultrasound for further characterization of noted LEFT thyroid lobe nodule.
--- NOTE | 2017-07-31 10:05 | RAD ---
Indication: Fall. RIGHT frontal scalp hematoma. RIGHT side thoracic pain. Comparison: November 12, 2014 CT. Technique: Noncontrast CT thoracic spine. Multiplanar reformation. Report: Negative for thoracic spine vertebral body or posterior element fracture at any level. Normal vertebral alignment. Diffuse degenerative spondylosis. Multilevel anterior and lateral margin ankylosis of the thoracic spine most prominent from T3-T4 through T10-T11. No evidence for significant acquired spinal stenosis. Negative for paravertebral hematoma. Negative for pneumothorax or pleural effusions within the [id number]. Cardiomegaly. IMPRESSION: 1. No CT evidence for traumatic thoracic spine injury. 2. Diffuse thoracic spine degenerative spondylosis and multilevel contiguous ankylosis. Multilevel segmental ossification of the anterior longitudinal ligament of the thoracic spine consistent with Diffuse Idiopathic Skeletal Hyperostosis (DISH).
[2017-07-31 10:15] LABS: ABS Basophils 0.1 10^3/ul (0-0.2); ABS Eosinophils 0.1 10^3/ul (0-0.6); ABS Lymphocytes 2.4 10^3/ul (1.0-4.8); ABS Monocytes 0.8 10^3/ul (0-0.8); ABS Neutrophils 8.4 10^3/ul (1.5-7.7); ABS Nucleated RBC 0 10^3/ul; Eosinophil % 1.1 % (0-6); Hematocrit 40 % (35-47); Hemoglobin 13.1 g/dl (12.0-16.0); Mean Corpuscular HGB Conc 33 g/dl (31-36); Mean Corpuscular Hemoglobin 28 pg (27-31); Mean Corpuscular Volume 86 fL (80-97); Mean Platelet Volume 7.2 um3 (7.4-10.4); Nucleated Red Blood Cells % 0; Platelet Count 293 10^3/ul (150-450); Red Blood Count 4.61 10^6/ul (4.0-5.4); Red Cell Distribution Width 15 % (10.5-15); White Blood Count 11.8 10^3/ul (3.5-10.8)
--- NOTE | 2017-07-31 10:16 | RAD ---
Indication: RIGHT shoulder pain post fall. Previous RIGHT humerus fracture. Comparison: January 01, 2014 radiographs. Technique: Internal and external rotation AP and scapular Y views RIGHT shoulder Report: Healed fracture at the surgical neck of the humerus. No acute fracture of the humerus, scapula, or clavicle evident. Normal acromioclavicular and glenohumeral joint alignment. Normal variant persistent os acromiale with secondary degenerative arthropathy. Mild to moderate osteophytosis at the glenohumeral joint with mild joint space narrowing. Unremarkable soft tissue contours accounting for body habitus. IMPRESSION: Negative for acute fracture or dislocation.
[2017-07-31 10:27] LABS: INR 0.94 (0.77-1.02)
[2017-07-31 10:32] LABS: EGFR Non-African American 103.7 (>60)
[2017-07-31 12:21] VITALS: BP 170/86
--- NOTE | 2017-08-01 01:45 | ED ---
Rita Reyes Emily, scribed for Marlene Hurt MD on 07/31/17 at 0839 . Adult Trauma - HPI Summary HPI Summary: This patient is a 72 year old F BIB[facility] to [facility] accompanied by son status post fall that occurred at 0530 today. Pt reports that she was sitting on her toilet , fell asleep, and fell onto the floor. She reports that she scooted herself on her butt and was able to pull herself to standing. She then went downstairs , and called for an ambulance. The patient rates the pain 9/10 in severity. Symptoms alleviated by nothing. Patient reports right-sided head pain, low neck pain, and R shoulder pain that began immediately post fall. She does not believe she had syncope. Pt reports that a similar episode, with the same type of fall, has occurred previously. She states that she has not taking her daily medications this morning. The patient denies history of SD. She states that she was seen by Dr. Allison on 07/28/2017 for a pre-surgery workup for a left knee surgery by Dr. Antunez in August 10, 2017. The patients BP is 175/80. - History of Current Complaint Chief Complaint: EDHeadInjury Stated Complaint: PAIN FROM FALL Time Seen by Provider: 07/31/17 08:25 Hx Obtained From: Patient, Family/Mobile Lounge Driver Or Operator - son ?: No Mechanism of Injury: Fall Ambulatory at the Scene: Yes Loss of Consciousness: no loss of consciousness Onset/Duration: Started Hours Ago, Still Present Onset of Pain: Immediate Onset Severity: Severe Current Severity: Severe Pain Intensity: 9 Pain Scale Used: 0-10 Numeric Location: Head, Other - Positive R shoulder Aggravating Factor(s): Nothing Alleviating Factor(s): Nothing Associated Signs & Symptoms: Positive: Other: - Positive right-sided head pain, neck pain, and R shoulder pain Related History: Similar Episode - Allergy/Home Medications Allergies/Adverse Reactions: Allergies Allergy/AdvReac Type Severity Reaction Status Date / Time Adhesive Tape Allergy Severe Rash/blisters, Verified 03/08/17 16:45 HIVES Cephalosporins Allergy Severe Hives Verified 07/28/17 12:21 codeine Allergy Severe Difficulty Verified 07/28/17 12:21 Breathing Penicillins Allergy Severe Hives Verified 07/28/17 12:21 tetracycline Allergy Severe Hives Verified 07/28/17 12:21 meperidine Allergy Flushing Verified 07/28/17 12:21 ENVIRONMENTAL/HAYFEVER Allergy TINGLING, Uncoded 07/28/17 12:25 CONTACT DERMITIS, CAN INDUE ASTHMA, SEE BELOW novacaine Allergy Swelling Uncoded 07/28/17 12:24 Of Face,Lips,& Throat Home Medications: Home Medications Acetaminophen [Acetaminophen Extra Strength] 500 mg PO BEDTIME 07/31/17 [ History Confirmed 07/31/17] Irbesartan (NF) [Avapro (NF)] 75 mg PO DAILY 07/31/17 [History Confirmed ] Metformin ER (NF) 500 mg PO BID 07/31/17 [History Confirmed 07/31/17] PMH/Surg Hx/FS Hx/Imm Hx Previously Healthy: No Endocrine/Hematology History: Reports: Hx Diabetes - TYPE 2 Denies: Hx Anticoagulant Therapy Cardiovascular History: Reports: Hx Hypertension - PROPHYLACTIC MEDICATION DUE TO DIABETES, Other Cardiovascular Problems/Disorders - PROPHYLACTIC CHOLESTEROL MEDICATION DUE TO DIABETES Denies: Hx Pacemaker/ICD Respiratory History: Reports: Hx Asthma - USE INHALER, Hx Sleep Apnea - ? HAS NOT BEEN TESTED History: Reports: Other Problems/Disorders - STRESS,URGENCY INCONTINENCE SEES PHYSICAL THERAPIST Denies: Hx Renal Disease Musculoskeletal History: Reports: Hx Arthritis - GENERALIZED Denies: Hx Rheumatoid Arthritis Sensory History: Reports: Hx Cataracts - mild, Hx Contacts or Glasses - GLASSES , Hx Glaucoma - both eyes stable Denies: Hx Hearing Aid Opthamlomology History: Reports: Hx Cataracts - mild, Hx Contacts or Glasses - GLASSES, Hx Glaucoma - both eyes stable Psychiatric History: Reports: Hx Depression - SITUATIONAL DEPRESSION Denies: Hx Panic Disorder - Cancer History Hx Chemotherapy: No Hx Radiation Therapy: No - Surgical History Surgery Procedure, Year, and Place: BILATERAL SHOULDER FRACTURE, NO REPAIRS. APPENDIX AGE 14. TONSILS/ADENOIDS AGE 3. C SECTION 1974. 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 Lives: Alone Alcohol Use: None Hx Substance Use: No Substance Use Type: Reports: None Hx Tobacco Use: Yes Smoking Status (MU): Former Smoker Do You Chew or Dip Tobacco: No Amount Used/How Often: smoked off and on 1/2ppd Have You Chewed or Dipped Tobacco in the LAST YEAR: No Length of Time of Smoking/Using Tobacco: 15 YEARS ON AND OFF Have You Smoked in the Last Year: No Review of Systems Negative: Fever Eyes: Negative Cardiovascular: Negative Respiratory: Negative Gastrointestinal: Negative Positive: no symptoms reported Positive: Other - Positive low neck pain, R shoulder pain, and right-sided head pain Skin: Negative Neurological: Negative Psychological: Normal All Other Systems Reviewed And Are Negative: Yes Physical Exam - Summary Physical Exam Summary: Appearance: Well-appearing, moderate pain distress, obese, hypertensive Skin: Warm, color reflects adequate perfusion, dry Head: right frontal hematoma Eyes: Conjunctiva clear, PERRL, EOMI, no nystagmus ENT: Normal inspection Neck: Supple, no nodes, no JVD, tender C6-7 through T2, Veguita collar applied upon exam Respiratory: Lungs clear, normal breath sounds, no respiratory distress Cardio: RRR, No murmur, pulses normal, brisk capillary refill Abdomen: Soft, nontender Bowel sounds: Present Musculoskeletal: Strength Intact/ROM intact, no calf tenderness, no edema. Right shoulder tender anteriorally, no bruising, full ROM Psychological: Normal Neuro: Alert, muscle tone normal, no focal deficit, moves all extremities well Triage Information Reviewed: Yes Vital Signs On Initial Exam: Initial Vitals Temp Pulse Resp BP Pulse Ox 98.3 F 101 19 173/105 97 07/31/17 07:45 07/31/17 07:45 07/31/17 07:45 07/31/17 07:45 07/31/17 07:45 Vital Signs Reviewed: Yes Diagnostics - Vital Signs Vital Signs Temp Pulse Resp BP Pulse Ox 07/31/17 07:45 98.3 F 101 19 173/105 97 - Laboratory Result Diagrams: 07/31/17 09:56 07/31/17 09:56 Lab Statement: Any lab studies that have been ordered have been reviewed, and results considered in the medical decision making process. - Radiology Shoulder XR Radiology Interpretation Completed By: Radiologist - Shoulder XR reveals, per radiologist, negative for acute fracture or dislocation. ED physician has reviewed this radiology report. - CT Brain CT CT Interpretation Completed By: Radiologist - Brain CT reveals, per radiologist , 1. Mild RIGHT frontal scalp hematoma. Negative for fracture or CT evidence for traumatic brain injury. 2. Moderate involutional change. ED physician has reviewed this radiology report. Cervical Spine CT CT Interpretation Completed By: Radiologist - Cervical spine CT reveals, per radiologist, 1. No CT evidence for traumatic cervical spine injury. 2. Multilevel degenerative spondylosis and facet joint osteoarthritis with resulting foraminal greater than central canal stenosis as described without significant change compared with the 2015 exam. 3. Consider nonemergent thyroid ultrasound for further characterization of noted LEFT thyroid lobe nodule. ED physician has reviewed this radiology report. Thoracic Spine CT CT Interpretation Completed By: Radiologist - Thoracic spine CT reveals, per radiologist, 1. No CT evidence for traumatic thoracic spine injury. 2. Diffuse thoracic spine degenerative spondylosis and multilevel contiguous ankylosis. Multilevel segmental ossification of the anterior longitudinal ligament of the thoracic spine consistent with Diffuse Idiopathic Skeletal Hyperostosis (DISH). ED physician has reviewed this radiology report. - EKG 0901 Cardiac Rate: NL EKG Rhythm: Sinus Rhythm - 76 BPM EKG Interpretation: Nml AV IVCT. Nml QTc. Durham 3 EKG Comparison: No Significant Change - Since 07/28/2017 Re-Evaluation - Re-Evaluation First Eval Re-Evaluation Time: 09:10 Change: Unchanged Comment: Pt with Veguita collar in place, moving all extremities, taking am meds and Tylenol. Going to CT. No new c/o. Second Eval Re-Evaluation Time: 10:55 Change: Unchanged Comment: Pt is sitting up in chair. In no acute distress. Adult Trauma Course/Dx - Course Assessment/Plan: This patient is a 72 year old F BIBA to [facility] accompanied by son status post fall that occurred at 0530 today. She does not believe she had syncope. Bloodwork and UA obtained. CTs and xray showed no urgent abnormalities or fractures. An EKG reveals nml sinus rhythm at 76 BPM, Nml AV IVCT, Nml QTc, Durham 3, and no significant change since an EKG taken on 07/28/2017. In the ED course, the patient recieved Tylenol, Cozaar, and metformin. The patient will be discharge home with follow up from Dr. Allison (PCP). She is agreeable with this plan. - Diagnoses Provider Diagnoses: Accident due to mechanical fall without injury, Hematoma of frontal scalp, Right shoulder strain Discharge - Sign-Out/Discharge Documenting (check all that apply): Discharge/Admit/Transfer - Discharge home - Discharge Plan Condition: Stable Disposition: HOME Patient Education Materials: Hematoma (ED) Referrals: Tin Allison MD [Primary Care Provider] - 2 Days Additional Instructions: Your CT's and shoulder xray did not show any abnormalities that need urgent treatment. You do need to follow up on the thyroid finding in the CT. Your EKG was also unchanged. Your lab work was unremarkable. You will want to follow up with Dr. Antunez about your shoulder, but there should be nothing preventing your knee surgery as scheduled. Follow up with Dr. Allison this week so that he knows you were in the ER. Return to the ER if you have new or worsening symptoms. - Billing Disposition and Condition Condition: STABLE Disposition: HOME The documentation as recorded by the Rtia mello Emily accurately reflects the service I personally performed and the decisions made by me, Marlene Hurt MD.
== END 2017-07-31 12:20 | disposition home or self-care (01) ==
LOC: ED 07:45
DX: S46.911A Strain of unspecified muscle, fascia and tendon at shoulder and upper arm level, right arm, initial encounter (principal); S00.03XA Contusion of scalp, initial encounter; W18.11XA Fall from or off toilet without subsequent striking against object, initial encounter; Y92.002 Bathroom of unspecified non-institutional (private) residence as the place of occurrence of the external cause; R51 Headache; Z88.8 Allergy status to other drugs, medicaments and biological substances; Z88.0 Allergy status to penicillin; E11.9 Type 2 diabetes mellitus without complications; I10 Essential (primary) hypertension; J45.909 Unspecified asthma, uncomplicated; Z87.891 Personal history of nicotine dependence; Z79.84 Long term (current) use of oral hypoglycemic drugs
CPT/HCPCS: 36415; 70450; 72125; 72128; 80053; 81003; 81015; 82550; 83735; 84443; 84484; 85025; 85610; 93005; 99284; A9270-GY

== ENCOUNTER 2017-08-10 05:59 | Inpatient (IN) | payer MEDICARE, BC ==
[~2017-08-10 05:59] MED LIST changes: +DiMENhydriNATE IV* 50 MG/ML VIAL IV PUSH PRN; -Famotidine IV* 10 MG/ML 2 ML (20 mg) IV ONE; +HYDROmorphone INJ* 1 MG/ML CARPUJECT SYRINGE IV PRN; +Naloxone* 0.4 MG/ML 1 ML VIAL IV PRN; +PROCHLORPERAZINE INJ 5 MG/ML 2 ML VIAL IV PRN; +Scopolamine 1.5 mg* PATCH TRANSDERM PRN; +fentaNYL* 50 MCG/ML 2 ML VIAL (100 MCG VIAL) IV PRN
[2017-08-10] MEDS ORDERED: Famotidine IV* 10 MG/ML 2 ML (20 mg) IV ONE (06:00)
[2017-08-10] MEDS ORDERED: Dexamethasone TAB* 4 MG PO ONE (06:00)
[2017-08-10] MEDS ORDERED: Gabapentin CAP(*) 300 MG PO ONE (06:00)
[2017-08-10] MEDS ORDERED: Ondansetron INJ* 2 MG/ML VIAL ONE (06:00)
[2017-08-10] MEDS ORDERED: Ondansetron ODT TAB* 4 MG ONE (06:13)
[2017-08-10] MEDS ORDERED: Clindamycin 900 MG IVPREMIX(* 900 MG/50 ML SDV IV ONE (06:13)
[2017-08-10] MEDS ORDERED: Famotidine IV* 10 MG/ML 2 ML (20 mg) ONE (06:13)
[2017-08-10] MEDS ORDERED: Gabapentin CAP(*) 300 MG ONE (06:13)
[2017-08-10] MEDS ORDERED: Dexamethasone TAB* 4 MG ONE (06:14)
[2017-08-10] MEDS ORDERED: fentaNYL* 50 MCG/ML 2 ML VIAL (100 MCG VIAL) ONE (07:09)
[2017-08-10] MEDS ORDERED: KETAMINE HCL* 50 MG/ML 10 ML VIAL ONE (07:09)
[2017-08-10] MEDS ORDERED: Midazolam* 1 MG/ML 5 ML VIAL (5 MG) ONE (07:09)
[2017-08-10] MEDS ORDERED: Bupivacaine 0.5% SDV PF* 30ML VIAL ONE (07:20)
[2017-08-10] MEDS ORDERED: Lidocain 1% EPI 1:100,000 * 30 ML MDV ONE (08:15)
[2017-08-10] MEDS ORDERED: Lidocaine 1% MPF wEPI 200,000* 30 ML SDV ONE (09:14)
[2017-08-10] MEDS ORDERED: Bupivacaine 0.25% SDV* 30 ML ONE ×2 (09:14→10:10)
[2017-08-10] MEDS ORDERED: Metoprolol Tartrate IV* 1 MG/ML 5 ML VIAL ONE (10:10)
[2017-08-10] MEDS ORDERED: Bupivacaine 0.5% PF 10 ML VIAL INJ ONE (10:10)
[2017-08-10] MEDS ORDERED: Phenylephrine INJ* 10 MG/ML 1 ML VIAL (10 MG) ONE (10:10)
[2017-08-10] MEDS ORDERED: Propofol* 500 MG/50 ML BTL ONE (10:10)
[2017-08-10] MEDS ORDERED: Labetalol IV* 5 MG/ML 20 ML VIAL ONE (10:10)
[2017-08-10] MEDS ORDERED: Lidocaine 2% PF * 5 ML VIAL ONE (10:10)
[2017-08-10] MEDS ORDERED: Morphine VIAL* 4 MG/ML VIAL (1 ml vial) IV PRN (10:24)
[2017-08-10] MEDS ORDERED: Ondansetron INJ* 2 MG/ML VIAL IV PRN (10:24)
[2017-08-10] MEDS ORDERED: diPHENhydraMINE IV* 50 MG/ML 1 ml VIAL (BENADRYL) IV PRN (10:24)
[2017-08-10] MEDS ORDERED: Temazepam CAP* 15 MG PO PRN (10:24)
[2017-08-10] MEDS ORDERED: Magnesium Hydroxide LIQ* 30 ML UDC PO PRN (10:24)
[2017-08-10] MEDS ORDERED: oxyCODONE/Acetamin 5/325 MG* TAB PO PRN (10:24)
--- NOTE | 2017-08-10 11:46 | RAD ---
INDICATION: Postoperative right knee arthroplasty COMPARISON: July 28, 2017 TECHNIQUE: Portable AP and crosstable lateral were obtained. FINDINGS: The prosthesis appears normally seated. There is no evidence of periprosthetic fracture. There are surgical drains with anterior skin michael and an overlying cooling jacket. IMPRESSION: POSTOPERATIVE RIGHT TOTAL KNEE.
[2017-08-10] MEDS ORDERED: HYDROmorphone INJ* 2 MG/ML CARPUJECT SYRINGE ONE (12:07)
[2017-08-10] MEDS ORDERED: Dextrose 50% Syringe 50 ML* 25 GM/50 ML SYRINGE IV PUSH PRN (13:42)
[2017-08-10] MEDS: oxyCODONE/Acetamin 5/325 MG* TAB PO PRN ×2 (14:46→17:22)
[2017-08-10] MEDS: Clindamycin 900 MG IVPREMIX(* 900 MG/50 ML SDV IV SCH ×2 (14:48→23:49)
[2017-08-10] MEDS: Insulin LISPRO* 1 UNITS UNIT SUBCUT SCH ×2 (17:09→21:23)
[2017-08-10] MEDS: Mometasone 220 MCG MDI INH SCH (18:08)
[2017-08-10] MEDS: Atorvastatin* 10 MG TAB PO SCH (18:09)
--- NOTE | 2017-08-10 21:01 | CONS ---
CC: Dr. Tin Allison; Dr. Antunez * CONSULTATION REPORT: DATE OF CONSULT: 08/10/17 PRIMARY CARE PROVIDER: Dr. Tin Allison. ORTHOPEDIST: Dr. Antunez REQUESTING PHYSICIAN: Dr. Antunez. HISTORY OF PRESENT ILLNESS: Ms. Cooper is a 72-year-old lady with a past medical history of type 2 diabetes, hyperlipidemia, hypertension, obstructive sleep apnea, morbid obesity with a BMI of 42, who was admitted for an elective right total knee replacement. The patient has a history of chronic right knee pain that failed outpatient therapy including physical therapy, anti-inflammatories, and intraarticular injections. She was followed by Dr. Antunez as an outpatient and was deemed to be a candidate for right total knee arthroplasty. This she underwent today with estimated blood loss of 100 mL. I saw the patient while in PACU and at that time, she had no complaints. Her only concern was with insulin use as she would rather continue using just her metformin. PAST MEDICAL HISTORY: 1. Type 2 diabetes. 2. Morbid obesity with a BMI of 42. 3. Hypertension. 4. Hyperlipidemia. 5. Probable obstructive sleep apnea. 6. Depression. PAST SURGICAL HISTORY: 1. Status post . 2. Status post tonsillectomy. 3. Status post appendectomy. 4. Nasal polyp removal. FAMILY HISTORY: Mother passed of congestive heart failure and also had rheumatoid arthritis. Father had hypertension and passed of an DC at age 88. SOCIAL HISTORY: She denies any history of alcohol, tobacco, or drug use. 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 REVIEW OF SYSTEMS: A 14-point review of systems performed and all the negative and positive findings are in the HPI. PHYSICAL EXAM: Vital Signs: Temperature 97.2, heart rate is 73, respiratory rate is 14, oxygen saturation 97% on room air, blood pressure is 138/70. General: The patient is a pleasant lady, lying in bed, in no acute distress. HEENT: Pupils are equal. Moist mucous membranes. CVS: Normal S1, S2. Regular rate and rhythm. Abdomen is obese, soft. Bowel sounds are present. Extremities: The patient has a cryo unit to her right knee. She has good pulses bilaterally, good capillary refill, and is able to wiggle her toes. Neuro: She is alert, awake, and oriented x3. She moves all 4 extremities. ASSESSMENT AND PLAN: Ms. Cooper is a 72-year-old lady with a past medical history of morbid obesity, hypertension, diabetes, hyperlipidemia, sleep apnea, who was admitted for an elective right total knee replacement and the orthopedic service requests the hospitalist service to follow the patient to manage her comorbidities. 1. Right total knee replacement. Management as per Ortho. 2. Type 2 diabetes. The patient will be started on fingersticks a.c. and h.s. and we will cover her with lispro sliding scale. By tomorrow, if her renal function remains stable, we will resume her metformin. 3. Hypertension. It is controlled. We will continue her ARB and monitor her blood pressure. 4. Hyperlipidemia. We will continue statin. 5. DVT prophylaxis. Will be as per Ortho recommendation. 6. Code status is full. TIME SPENT: Approximately 40 minutes was spent with the patient's interview, medical records review, physical examination to complete this admission, more than half of this time was spent [id number] with the patient and coordination of care. [id number]/[id number] #: [id number] RENALDO
[2017-08-10] MEDS: oxyCODONE TAB* 5 MG TAB PO PRN (21:21)
[2017-08-10] MEDS: Docusate CAP* 100 MG PO SCH (21:21)
[2017-08-10] MEDS: Ferrous Sulfate TAB* 325 MG PO SCH (21:21)
[2017-08-10] MEDS: Fluticasone NASAL SPRAY 50MCG* 16 gm SPRAY BTL NASAL SCH (21:22)
[2017-08-10] MEDS: PTO Brimonidine P 0.1%(NF) 1 DROP BTL BOTH EYES SCH (21:22)
--- NOTE | 2017-08-11 04:34 | OP ---
DATE OF OPERATION: 08/10/17 - ROOM #347 DATE OF : 41 SURGICAL CARE: Right knee. SURGEON: Richar Antunez MD ASSISTANTS: 1. HERIBERTO Ni first aid attendant. 2. Chloe Tinajero, polysomnography technician. ANESTHESIOLOGIST: Dr. Casa Jennings. ANESTHESIA: Right thigh adductor canal block and spinal anesthesia with IV sedation. PRE-OP DIAGNOSIS: Severe right knee patellofemoral arthritis. POST-OP DIAGNOSIS: Severe right knee patellofemoral arthritis. OPERATIVE PROCEDURE: Right total knee replacement. COMPONENTS UTILIZED: A Nasir Persona knee was utilized. All components were cemented, a size 35 patella, a narrow size 5 femur and a size D tibia with a 10 articular surface. OPERATIVE INDICATIONS: Severe knee pain with disability and the arthritis happened to be severe at the patellofemoral portion of the knee joint. COMPLICATIONS: There were no complications. DRAINS: Two drains, right knee at the end of the case. BLOOD LOSS: 200 mL. REPLACEMENT: Crystalloid fluids DESCRIPTION OF PROCEDURE: The patient was brought to the operating room and placed on the operating room table in a supine position. The canal block had been done in the holding area by Dr. Jennings. The spinal anesthetic was administered by Dr. Jennings in a sitting position. The patient returned to the supine position. A Bertrand catheter was inserted. The right foot was noted to have a 2+ posterior tibial pulse. The right leg was wrapped proximally with a proximal thigh tourniquet and the leg was given a preliminary ChloraPrep and then the formal ChloraPrep was done from the tourniquet to the tips of the toes. After prepping, draping and sealing off, we did our universal protocol time-out confirming Patricia Cooper and a plan for right total knee replacement, we all agreed and we proceeded. The surgical care was done mostly without the tourniquet with the hip and right knee acutely flexed and the right foot on a padded foot piece. The skin incision went from 2 fingerbreadths proximal to the superior pole of the patella to the medial aspect of the tibial tubercle. The skin and subcu were divided down to the prepatellar bursa. The bursa was traversed and then we entered the knee medial parapatellar dividing the soft tissues on the tibia down to the bone just 2 cm medial to the tibial tubercle going up to the joint line and to the medial patella and then dividing the quadriceps tendon at the junction of the right rectus femoris and the vastus medialis staying as close to vastus medialis muscle as possible within the tendon. This incision went 3 to 4 cm proximal to the superior pole of the patella. Careful hemostasis was checked and achieved throughout the case utilizing electrocautery. The patella was slid into a laterally dislocated position and the anteromedial soft tissues on the tibia were elevated subperiosteally going around to the deep MCL and then to the posterior medial corner of the knee. The remains of the anterior horn medial meniscus were carefully excised. The patella was then everted. The infrapatellar fat pad was removed and synovectomy was completed around the patella. The patella had complete loss of cartilage and mostly exposed bone, osteophytes and some loose cartilage. The trochlear side of the patellofemoral joint had marked loss of cartilage as well. The medial and lateral compartments were better preserved with small osteophytes there as well. The lateral meniscus was carefully excised with careful attention paid to hemostasis at the periphery for the lateral geniculate. The ACL and PCL were uplifted from their femoral origins and the tibia was made so that it could be subluxated for from under the knee. The distal anterior femur was exposed subperiosteally for referencing and measuring. The PCL was carefully excised and great care was taken while working posteriorly including careful hemostasis. The proximal tibial cut was made first and our goal here was to remove a few millimeters of bone from the medal and lateral plateaus and this was accomplished without difficulty. We wanted to have a tibial surface that would be perpendicular to the long axis of the tibia and have a slight posterior slope. The femoral intramedullary drill was utilized and the femoral canal was suctioned immediately to discourage any embolization. The distal femoral cutting guide was applied with 0 and 6 degrees of valgus and the distal femoral cut was completed and extension gap was noted to be fine at 10 mm. The femur was then measured for a size 5 and the anterior, posterior and chamfering cuts were completed. We then finished removal of the PCL, posterior horn medial meniscus carefully preserving the MCL and the posterior osteophyte on the medial femoral condyle. We had a nice flexion gap that allowed a 10 mm block at this stage. The femur was then completed with the intercondylar cutouts and anchoring holes. The tibia was completed for size D. The femoral canal was cleaned x6 with pulsed saline and then suctioned empty and a bone plug was inserted. The knee was then set up with the size D tibia, 10 articular surface and a size 5 femur with full knee extension, stable ligaments in extension, stable ligaments in 90 degrees of flexion. The patella was then cut flat, a 35 was chosen, 3 drill holes were made. These were undercut for optimal cement inter-digitation and a lateral release was not necessary. The leg was then exsanguinated. The tourniquet elevated to 275. The knee was then cleaned up in extension with 2.5 L of pulsed saline irrigation. The knee was then cleaned in flexion with retractors in place and all bony surfaces were cleaned with the pulsed saline. A centimeter cyst was removed from the posteromedial tibia and this was cleaned with saline as well. All surfaces were then dried. The cement was mixed and the components were cemented into position, patella followed by tibia, followed by femur, each was impacted. Excess cement was removed and the knee was articulated and extended during the final hardening. The tourniquet was then deflated. Hemostasis checked and achieved utilizing electrocautery during the closure. We infiltrated the pericapsular structures posteromedially, laterally and medially with Marcaine 0.5% without epinephrine mixed with Xylocaine 1% with epinephrine and we used a total of 40 cc of this mixture in the pericapsular tissues and in the joint following closure of the joint. The drains were brought out through superolateral suprapatellar pouch. The quadriceps mechanism was closed with interrupted #1 Vicryl in [id number] fashion, the same with the medial retinaculum, more distally we used 0 Vicryl. The deep fascia and superficial subcu closed with 0 and then 3-0 Polysorb and the skin was closed with michael. The dressing was done with the knee was extended completely and flexed completely x6 to 7 at the end of the closure. Dressing was done after washing and drying with Betadine soaked release, sterile gauze, the same dressing was put on the drains and then sterile Webril. A Cryotherapy cuff was applied, then ABD pads and then a 6-inch Octavio bandage loosely applied. The dorsalis pedis pulse was 2+ at the end of the case and the patient was returned to the hospital bed in stable and satisfactory condition having tolerated the procedure very well. [id number]/[facility] #: [id number] MTDJah
[2017-08-11 06:36] LABS: Hematocrit 32 % (35-47); Hemoglobin 10.2 g/dl (12.0-16.0); Mean Platelet Volume 6.5 um3 (7.4-10.4); Platelet Count 224 10^3/ul (150-450)
[2017-08-11 06:54] LABS: EGFR Non-African American 89.1 (>60)
[2017-08-11] MEDS: Clindamycin 900 MG IVPREMIX(* 900 MG/50 ML SDV IV SCH (07:12)
--- NOTE | 2017-08-11 07:15 | PN ---
Progress Note - Progress Note Date of Service: 08/11/17 Note: POD #1 Awake, alert, cooperative, breathing easily and some distress right knee. Able to leg raise right and the dressing is dry, 2 drains removed right knee dressing. Moving right ankle 4 directions and right DP pulse is 2 plus. No foot swelling and sensory all intact. Hct is 32%. Electrolytes slightly low. X-ray post op all OK right total knee. Imp: Stable. Acute blood loss anemia. Plans: Up with walker, incentive spirometer, drinking She had clindamycin for prophylaxsis.
[2017-08-11] MEDS: Insulin LISPRO* 1 UNITS UNIT SUBCUT SCH ×4 (08:06→21:29)
[2017-08-11] MEDS: PTO Brimonidine P 0.1%(NF) 1 DROP BTL BOTH EYES SCH ×2 (08:07→21:55)
[2017-08-11] MEDS: FLUoxetine CAP* 20 MG PO SCH (08:09)
[2017-08-11] MEDS: Losartan TAB* 25 MG PO SCH (08:09)
[2017-08-11] MEDS: Ferrous Sulfate TAB* 325 MG PO SCH ×2 (08:09→21:29)
[2017-08-11] MEDS: Fluticasone NASAL SPRAY 50MCG* 16 gm SPRAY BTL NASAL SCH ×2 (08:09→21:30)
[2017-08-11] MEDS: Vitamin THERAPEUTIC TAB PO SCH (08:09)
[2017-08-11] MEDS: Aspirin TAB* 325 MG PO SCH (08:09)
[2017-08-11] MEDS: Docusate CAP* 100 MG PO SCH ×2 (08:09→21:29)
[2017-08-11] MEDS: oxyCODONE/Acetamin 5/325 MG* TAB PO PRN ×3 (10:27→18:51)
[2017-08-11] MEDS: oxyCODONE TAB* 5 MG TAB PO PRN ×2 (11:47→16:43)
--- NOTE | 2017-08-11 16:11 | PN ---
Subjective Date of Service: 08/11/17 Interval History: Patient complains of tolerable pain in knee at rest but pain up to 9/10 with movement. Patient denies F/C, N/C, abdominal pain, dysuria, CP, SOB. Dizziness, or other pain. Patient interested in rehab at discharge and would not like to void insulin therapy at discharge. Family History: Unchanged from Admission Social History: Unchanged from Admission Past Medical History: Unchanged from Admission Objective Active Medications: Aspirin (Aspirin Tab*) 325 mg PO DAILY [facility] Last Admin: 08/11/17 08:09 Dose: 325 mg Atorvastatin Calcium (Lipitor*) 5 mg PO QPM [facility] Last Admin: 08/10/17 18:09 Dose: 5 mg Brimonidine Tartrate (Alphagan P 0.1% (Nf)) 1 drop BOTH EYES BID [facility] Last Admin: 08/11/17 08:07 Dose: 1 drop Cyclobenzaprine HCl (Flexeril Tab*) 5 mg PO TID PRN PRN Reason: SPASMS Dextrose (D50w Syringe 50 Ml*) 12.5 gm IV PUSH .FOR FS < 60 - SS PRN PRN Reason: FS < 60 Diphenhydramine HCl (Benadryl Iv*) 25 mg IV Q6H PRN PRN Reason: itching Docusate Sodium (Colace Cap*) 100 mg PO BID [facility] Last Admin: 08/11/17 08:09 Dose: 100 mg Ferrous Sulfate (Ferrous Sulfate Tab*) 325 mg PO BID [facility] Last Admin: 08/11/17 08:09 Dose: 325 mg Fluoxetine HCl (Prozac Cap*) 20 mg PO QAM [facility] Last Admin: 08/11/17 08:09 Dose: 20 mg Fluticasone Propionate (Flonase Nasal [place] 50mcg*) 1 spray NASAL BID [facility] Last Admin: 08/11/17 08:09 Dose: Not Given Lactated Ringer's (Lactated Ringers 1000 Ml Bag*) 1,000 mls @ 100 mls/hr IV PER RATE [facility] Last Admin: 08/10/17 21:33 Dose: 100 mls/hr Insulin Human Lispro (Humalog*) 0 units SUBCUT ACHS [facility] PRN Reason: Protocol Losartan Potassium (Cozaar Tab*) 25 mg PO DAILY [facility] Last Admin: 08/11/17 08:09 Dose: 25 mg Magnesium Hydroxide (Milk Of Magnesia Liq*) 30 ml PO Q6H PRN PRN Reason: constipation Metformin HCl (Glucophage*) 500 mg PO BID [facility] Mometasone Furoate (Asmanex 220 Mcg Mdi *) 1 puff INH QPM [facility] Last Admin: 08/10/17 18:08 Dose: Not Given Morphine Sulfate (Morphine Vial*) 2 mg IV Q2H PRN PRN Reason: PAIN - BREAKTHROUGH Multivitamins (Theragran Tab*) 1 tab PO DAILY [facility] Last Admin: 08/11/17 08:09 Dose: 1 tab Ondansetron HCl (Zofran Inj*) 4 mg IV Q6H PRN PRN Reason: nausea Oxycodone HCl (Roxycodone Tab*) 10 mg PO Q4H PRN PRN Reason: PAIN - SEVERE Last Admin: 08/11/17 11:47 Dose: 10 mg Oxycodone/Acetaminophen (Percocet 5/325 Tab*) 2 tab PO Q4H PRN PRN Reason: PAIN Last Admin: 08/11/17 05:43 Dose: 2 tab Oxycodone/Acetaminophen (Percocet 5/325 Tab*) 1 tab PO Q4H PRN PRN Reason: PAIN Last Admin: 08/11/17 14:39 Dose: 1 tab Pharmacy Profile Note (Scopolamine Patch Remove*) 1 note PATCH OFF Q72H ONE Stop: 08/13/17 05:41 Temazepam (Restoril Cap*) 15 mg PO BEDTIME PRN PRN Reason: INSOMNIA Vital Signs - 8 hr 08/11/17 08/11/17 08/11/17 10:27 11:20 11:47 Temperature 98.4 F Pulse Rate 92 Respiratory 16 17 18 Rate Blood Pressure 135/59 (mmHg) O2 Sat by Pulse 96 Oximetry 08/11/17 08/11/17 08/11/17 14:27 14:39 14:53 Temperature Pulse Rate Respiratory 18 18 18 Rate Blood Pressure (mmHg) O2 Sat by Pulse Oximetry 08/11/17 16:00 Temperature 99.0 F Pulse Rate 79 Respiratory 18 Rate Blood Pressure 153/57 (mmHg) O2 Sat by Pulse 94 Oximetry Oxygen Devices in Use Now: None Appearance: Patient is a 72yo female who appears stated age and is sitting in the bed in [facility]. Eyes: No Scleral Icterus, PERRLA Ears/Nose/Mouth/Throat: NL Teeth, Lips, Gums, Clear Oropharnyx, Mucous Membranes Moist Neck: NL Appearance and Movements; NL JVP, Trachea Midline Respiratory: Symmetrical Chest Expansion and Respiratory Effort, Clear to Auscultation Cardiovascular: NL Sounds; No Murmurs; No JVD, RRR, No Edema Abdominal: NL Sounds; No Tenderness; No Distention, No Hepatosplenomegaly Lymphatic: No Cervical Adenopathy Extremities: No Edema, No Clubbing, Cyanosis Skin: No Nodules or Sclerosis, - - Right knee covered in bulky dressing. Neurological: Alert and Oriented x 3, NL Sensation, NL Muscle Strength and Tone , - - CN II-XII intact. Result Diagrams: 08/11/17 06:17 08/11/17 06:17 Assess/Plan/Problems-Billing Assessment: Patient is a 72yo female with a PMH for DMII, HTN, OA is S/P TRKA and is doing well. - Patient Problems (1) Post-operative state Current Visit: Yes Status: Acute Code(s): Z98.890 - OTHER SPECIFIED POSTPROCEDURAL STATES SNOMED Code(s): 48225468 Comment: Managment per Ortho. Bertrand removed. Pain controlled. PT/OT. H/H decreased expected amount. Will likely need rehab at discharge. (2) DMII (diabetes mellitus, type 2) Current Visit: Yes Status: Acute Comment: Relatively uncontrolled. Recent A1c around 8. Noticed increase in blood sugar after recent knee injections. Increase SSI and resume Metformin. Discussed lifestyle modification and weight loss for better control outpatient. (3) HTN (hypertension) Current Visit: Yes Status: Acute Code(s): I10 - ESSENTIAL (PRIMARY) HYPERTENSION SNOMED Code(s): 31093974 Comment: Normotensive, continue ARB. (4) HLD (hyperlipidemia) Current Visit: Yes Status: Acute Code(s): E78.5 - HYPERLIPIDEMIA, UNSPECIFIED SNOMED Code(s): 55596508 Comment: Continue Lipitor. (5) Full code status Current Visit: Yes Status: Acute Code(s): Z78.9 - OTHER SPECIFIED HEALTH STATUS SNOMED Code(s): 021255976 (6) DVT prophylaxis Current Visit: Yes Status: Acute Code(s): BLE2220 - SNOMED Code(s): 018699736 Comment: Aspirin Full Dose as Per Ortho Status and Disposition: Inpatient. Disposition per ortho. Will likely need rehab at discharge.
[2017-08-11] MEDS: Mometasone 220 MCG MDI INH SCH (17:33)
[2017-08-11] MEDS: Atorvastatin* 10 MG TAB PO SCH (17:33)
[2017-08-11] MEDS: Cyclobenzaprine TAB* 10 MG PO PRN (17:40)
[2017-08-11] MEDS: metFORMIN* 500 MG TAB PO SCH (21:29)
[2017-08-12] MEDS ORDERED: NS 0.9% 500 ML* 500 ML IV ONE (01:13)
[2017-08-12] MEDS: oxyCODONE TAB* 5 MG TAB PO PRN (02:18)
[2017-08-12] MEDS ORDERED: NS 0.9% 1000 ML* 1,000 ML IV SCH (03:30)
[2017-08-12 03:52] LABS: Hematocrit 33 % (35-47); Hemoglobin 10.6 g/dl (12.0-16.0); Mean Corpuscular HGB Conc 32 g/dl (31-36); Mean Corpuscular Hemoglobin 28 pg (27-31); Mean Corpuscular Volume 87 fL (80-97); Mean Platelet Volume 6.9 um3 (7.4-10.4); Platelet Count 233 10^3/ul (150-450); Red Blood Count 3.76 10^6/ul (4.00-5.40); Red Cell Distribution Width 15 % (10.5-15)
[2017-08-12 04:08] LABS: EGFR Non-African American 115.3 (>60)
[2017-08-12 04:25] LABS: ABS Basophils 0.1 10^3/ul (0-0.2); ABS Eosinophils 0 10^3/ul (0-0.6); ABS Lymphocytes 1.5 10^3/ul (1.0-4.8); ABS Monocytes 2.1 10^3/ul (0-0.8); ABS Neutrophils 19.3 10^3/ul (1.5-7.7); ABS Nucleated RBC 0 10^3/ul; Eosinophil % 0.1 % (0-6); Lymphocyte % 6.5 % (25-47); Nucleated Red Blood Cells % 0
[2017-08-12 05:14] LABS: Hematocrit 32 % (35-47); Hemoglobin 10.1 g/dl (12.0-16.0); Mean Platelet Volume 6.8 um3 (7.4-10.4); Platelet Count 230 10^3/ul (150-450)
[2017-08-12 05:32] LABS: Urine Appearance Clear; Urine Blood 2+ (Negative); Urine Color Straw; Urine Ketones 1+ (Negative); Urine Protein Negative (Negative); Urine Red Blood Cell 3+(>10/hpf) (Absent); Urine Specific Gravity 1.009 (1.010-1.030); Urine Urobilinogen Negative (Negative); Urine White Blood Cell Absent (Absent)
--- NOTE | 2017-08-12 07:49 | RAD ---
HISTORY: tachycardia, COMPARISONS: 07/28/2017 VIEWS: 1: frontal portable view of the chest at 4:30 AM FINDINGS: LINES AND TUBES: None. CARDIOMEDIASTINAL SILHOUETTE: The cardiomediastinal silhouette is normal for portable technique. PLEURA: The costophrenic angles are sharp. No pleural abnormalities are noted. LUNG PARENCHYMA: The lungs are clear. ABDOMEN: The upper abdomen is clear. There is no subphrenic gas. BONES AND SOFT TISSUES: Degenerative changes are noted. IMPRESSION: NO ACTIVE CARDIOPULMONARY DISEASE.
[2017-08-12] MEDS ORDERED: Albuterol 2.5 MG/3 ML NEB.SOL* (0.083%) INH PRN (08:03)
[2017-08-12] MEDS: Insulin LISPRO* 1 UNITS UNIT SUBCUT SCH ×4 (08:05→22:01)
[2017-08-12] MEDS: Fluticasone NASAL SPRAY 50MCG* 16 gm SPRAY BTL NASAL SCH ×2 (08:06→21:25)
[2017-08-12] MEDS: FLUoxetine CAP* 20 MG PO SCH (08:07)
[2017-08-12] MEDS: Docusate CAP* 100 MG PO SCH ×2 (08:07→21:59)
[2017-08-12] MEDS: metFORMIN* 500 MG TAB PO SCH (08:07)
[2017-08-12] MEDS: Losartan TAB* 25 MG PO SCH (08:07)
[2017-08-12] MEDS: Aspirin TAB* 325 MG PO SCH (08:07)
[2017-08-12] MEDS: Ferrous Sulfate TAB* 325 MG PO SCH ×2 (08:07→21:59)
[2017-08-12] MEDS: Vitamin THERAPEUTIC TAB PO SCH (08:07)
[2017-08-12] MEDS: oxyCODONE/Acetamin 5/325 MG* TAB PO PRN ×3 (08:12→22:00)
[2017-08-12] MEDS: PTO Brimonidine P 0.1%(NF) 1 DROP BTL BOTH EYES SCH ×2 (08:13→22:08)
[2017-08-12] MEDS: Metoprolol Tartrate IV* 1 MG/ML 5 ML VIAL IV PRN ×2 (08:38→22:01)
--- NOTE | 2017-08-12 09:44 | PN ---
Progress Note - Progress Note Date of Service: 08/12/17 SOAP: Subjective: [Pt reports pain R knee with movement and with attempts at weight bearing. Otherwise well-controlled with po meds. Currently denies dizziness, CP, SOB, calf pain. ] Objective: [A and O X 3, NAD Seated R knee dressing changed - surgical wound benign. No drainage or erythema. Calves soft, NT Distal gross motor and NV function intact Had episode of tachycardia in early hours of this morning. Hospitalist consulted. CXR, EKG ordered. Vital Signs: Temp Pulse Resp BP Pulse Ox 98.7 F 115 20 178/74 94 08/12/17 07:07 08/12/17 07:07 08/12/17 08:12 08/12/17 07:07 08/12/17 07:07 Laboratory Results - last 24 hr 08/11/17 08/11/17 08/11/17 11:22 16:46 21:23 WBC RBC Hgb Hct MCV MCH MCHC RDW Plt Count MPV Neut % (Auto) Lymph % (Auto) [place] % (Auto) Eos % (Auto) Baso % (Auto) Absolute Neuts (auto) Absolute Lymphs (auto) Absolute Monos (auto) Absolute Eos (auto) Absolute Basos (auto) Absolute Nucleated RBC Nucleated RBC % Sodium Potassium Chloride Carbon Dioxide Anion Gap BUN Creatinine Est GFR ( Amer) Est GFR (Non-Af Amer) BUN/Creatinine Ratio Glucose POC Glucose (mg/dL) 258 H 178 H 256 H Calcium Urine Color Urine Appearance Urine pH Ur Specific [place] Urine Protein Urine Ketones Urine Blood Urine Nitrate Urine Bilirubin Urine Urobilinogen Ur Leukocyte Esterase Urine WBC (Auto) Urine RBC (Auto) Urine Bacteria Urine Glucose 08/12/17 08/12/17 08/12/17 03:45 03:45 04:53 WBC 23.0 H RBC 3.76 L Hgb 10.6 L 10.1 L Hct 33 L 32 L MCV 87 MCH 28 MCHC 32 RDW 15 Plt Count 233 230 MPV 6.9 L 6.8 L Neut % (Auto) 84.1 H Lymph % (Auto) 6.5 L [place] % (Auto) 9.0 H Eos % (Auto) 0.1 Baso % (Auto) 0.3 Absolute Neuts (auto) 19.3 H Absolute Lymphs (auto) 1.5 Absolute Monos (auto) 2.1 H Absolute Eos (auto) 0 Absolute Basos (auto) 0.1 Absolute Nucleated RBC 0 Nucleated RBC % 0 Sodium 133 L Potassium 4.5 Chloride 95 L Carbon Dioxide 28 Anion Gap 10 BUN 7 Creatinine 0.52 Est GFR ( Amer) 148.2 Est GFR (Non-Af Amer) 115.3 BUN/Creatinine Ratio 13.5 Glucose 232 H POC Glucose (mg/dL) Calcium 9.0 Urine Color Urine Appearance Urine pH Ur Specific [place] Urine Protein Urine Ketones Urine Blood Urine Nitrate Urine Bilirubin Urine Urobilinogen Ur Leukocyte Esterase Urine WBC (Auto) Urine RBC (Auto) Urine Bacteria Urine Glucose 08/12/17 08/12/17 05:20 07:35 WBC RBC Hgb Hct MCV MCH MCHC RDW Plt Count MPV Neut % (Auto) Lymph % (Auto) [place] % (Auto) Eos % (Auto) Baso % (Auto) Absolute Neuts (auto) Absolute Lymphs (auto) Absolute Monos (auto) Absolute Eos (auto) Absolute Basos (auto) Absolute Nucleated RBC Nucleated RBC % Sodium Potassium Chloride Carbon Dioxide Anion Gap BUN Creatinine Est GFR ( Amer) Est GFR (Non-Af Amer) BUN/Creatinine Ratio Glucose POC Glucose (mg/dL) 243 H Calcium Urine Color Straw Urine Appearance Clear Urine pH 7.0 Ur Specific [place] 1.009 L Urine Protein Negative Urine Ketones 1+ A Urine Blood 2+ A Urine Nitrate Negative Urine Bilirubin Negative Urine Urobilinogen Negative Ur Leukocyte Esterase Negative Urine WBC (Auto) Absent Urine RBC (Auto) 3+(>10/hpf) A Urine Bacteria Absent Urine Glucose 3+(>=500 mg/dl) A ] Assessment: [72 you female s/p R TKA POD #2 ] Plan: [Con't. PT/OT Pain management] Aspirin for DVT prophylaxis Likely to rehab facility upon D/C
[2017-08-12 09:47] LABS: ABS Basophils 0.1 10^3/ul (0-0.2); ABS Eosinophils 0 10^3/ul (0-0.6); ABS Lymphocytes 1.4 10^3/ul (1.0-4.8); ABS Monocytes 2.1 10^3/ul (0-0.8); ABS Neutrophils 19.3 10^3/ul (1.5-7.7); ABS Nucleated RBC 0 10^3/ul; Eosinophil % 0.1 % (0-6); Hematocrit 29 % (35-47); Hemoglobin 9.4 g/dl (12.0-16.0); Lymphocyte % 6.3 % (25-47); Mean Corpuscular HGB Conc 32 g/dl (31-36); Mean Corpuscular Hemoglobin 28 pg (27-31); Mean Corpuscular Volume 86 fL (80-97); Mean Platelet Volume 6.7 um3 (7.4-10.4); Nucleated Red Blood Cells % 0; Platelet Count 226 10^3/ul (150-450); Red Cell Distribution Width 15 % (10.5-15)
--- NOTE | 2017-08-12 09:57 | PN ---
Subjective Date of Service: 08/12/17 Interval History: Patient seen and examined. Noted overnight events of tachycardia, HTN, SOB. Labs reviewed, increased leukocytosis noted, LLL looks like beginning effusion, may be early consolidation. Patient seen and examined, denies chest pain, no SOB , remains tachy and hypertensive. Family History: Unchanged from Admission Social History: Unchanged from Admission Past Medical History: Unchanged from Admission Objective Active Medications: Albuterol (Ventolin 2.5 Mg/3 Ml Neb.Joellen*) 2.5 mg INH Q4H PRN PRN Reason: SOB/WHEEZING Aspirin (Aspirin Tab*) 325 mg PO DAILY [facility] Last Admin: 08/12/17 08:07 Dose: 325 mg Atorvastatin Calcium (Lipitor*) 5 mg PO QPM [facility] Last Admin: 08/11/17 17:33 Dose: 5 mg Brimonidine Tartrate (Alphagan P 0.1% (Nf)) 1 drop BOTH EYES BID [facility] Last Admin: 08/12/17 08:13 Dose: 1 drop Cyclobenzaprine HCl (Flexeril Tab*) 5 mg PO TID PRN PRN Reason: SPASMS Last Admin: 08/11/17 17:40 Dose: 5 mg Dextrose (D50w Syringe 50 Ml*) 12.5 gm IV PUSH .FOR FS < 60 - SS PRN PRN Reason: FS < 60 Diphenhydramine HCl (Benadryl Iv*) 25 mg IV Q6H PRN PRN Reason: itching Docusate Sodium (Colace Cap*) 100 mg PO BID [facility] Last Admin: 08/12/17 08:07 Dose: 100 mg Ferrous Sulfate (Ferrous Sulfate Tab*) 325 mg PO BID [facility] Last Admin: 08/12/17 08:07 Dose: 325 mg Fluoxetine HCl (Prozac Cap*) 20 mg PO QAM [facility] Last Admin: 08/12/17 08:07 Dose: 20 mg Fluticasone Propionate (Flonase Nasal [place] 50mcg*) 1 spray NASAL BID [facility] Last Admin: 08/12/17 08:06 Dose: Not Given Lactated Ringer's (Lactated Ringers 1000 Ml Bag*) 1,000 mls @ 100 mls/hr IV PER RATE [facility] Last Admin: 08/10/17 21:33 Dose: 100 mls/hr Sodium Chloride (Ns 0.9% 1000 Ml*) 1,000 mls @ 125 mls/hr IV PER RATE [facility] Stop: 08/12/17 11:29 Last Admin: 08/12/17 03:58 Dose: 125 mls/hr Levofloxacin/Dextrose (Levaquin 500 Mg Ivpremix(*)) 500 mg in 100 mls @ 100 mls /hr IVPB Q24H [facility] Insulin Human Lispro (Humalog*) 0 units SUBCUT ACHS [facility] PRN Reason: Protocol Last Admin: 08/12/17 08:05 Dose: 6 units Losartan Potassium (Cozaar Tab*) 25 mg PO DAILY [facility] Last Admin: 08/12/17 08:07 Dose: 25 mg Magnesium Hydroxide (Milk Of Magnesia Liq*) 30 ml PO Q6H PRN PRN Reason: constipation Metformin HCl (Glucophage*) 500 mg PO BID [facility] Last Admin: 08/12/17 08:07 Dose: 500 mg Metoprolol Tartrate (Lopressor Iv*) 5 mg IV Q6H PRN PRN Reason: BLOOD PRESSURE Last Admin: 08/12/17 08:38 Dose: 5 mg Mometasone Furoate (Asmanex 220 Mcg Mdi *) 1 puff INH QPM [facility] Last Admin: 08/11/17 17:33 Dose: Not Given Morphine Sulfate (Morphine Vial*) 2 mg IV Q2H PRN PRN Reason: PAIN - BREAKTHROUGH Last Admin: 08/11/17 20:10 Dose: 2 mg Multivitamins (Theragran Tab*) 1 tab PO DAILY [facility] Last Admin: 08/12/17 08:07 Dose: 1 tab Ondansetron HCl (Zofran Inj*) 4 mg IV Q6H PRN PRN Reason: nausea Oxycodone HCl (Roxycodone Tab*) 10 mg PO Q4H PRN PRN Reason: PAIN - SEVERE Last Admin: 08/12/17 02:18 Dose: 10 mg Oxycodone/Acetaminophen (Percocet 5/325 Tab*) 2 tab PO Q4H PRN PRN Reason: PAIN Last Admin: 08/11/17 05:43 Dose: 2 tab Oxycodone/Acetaminophen (Percocet 5/325 Tab*) 1 tab PO Q4H PRN PRN Reason: PAIN Last Admin: 08/12/17 08:12 Dose: 1 tab Pharmacy Profile Note (Scopolamine Patch Remove*) 1 note PATCH OFF Q72H ONE Stop: 08/13/17 05:41 Temazepam (Restoril Cap*) 15 mg PO BEDTIME PRN PRN Reason: INSOMNIA Vital Signs - 8 hr 08/12/17 08/12/17 08/12/17 02:18 02:32 03:48 Temperature 98.7 F 99.0 F Pulse Rate 112 118 Respiratory 18 20 17 Rate Blood Pressure 163/70 183/74 (mmHg) O2 Sat by Pulse 98 94 Oximetry 08/12/17 08/12/17 08/12/17 04:23 07:07 07:32 Temperature 99.3 F 98.7 F Pulse Rate 116 115 Respiratory 18 20 20 Rate Blood Pressure 148/77 178/74 (mmHg) O2 Sat by Pulse 93 94 Oximetry 08/12/17 08:12 Temperature Pulse Rate Respiratory 20 Rate Blood Pressure (mmHg) O2 Sat by Pulse Oximetry Oxygen Devices in Use Now: None Appearance: Alert, NAD Eyes: No Scleral Icterus, PERRLA Ears/Nose/Mouth/Throat: NL Teeth, Lips, Gums, Mucous Membranes Moist Neck: NL Appearance and Movements; NL JVP, Trachea Midline Respiratory: Symmetrical Chest Expansion and Respiratory Effort, - - crackles LLL Cardiovascular: NL Sounds; No Murmurs; No JVD, No Edema, - - tachycardic, regular Abdominal: NL Sounds; No Tenderness; No Distention Extremities: No Edema, No Clubbing, Cyanosis Skin: No Rash or Ulcers Neurological: Alert and Oriented x 3 Nutrition: Taking PO's Result Diagrams: 08/12/17 09:35 08/12/17 03:45 Assess/Plan/Problems-Billing Assessment: Patient is a 72yo female with a PMH for DMII, HTN, OA is S/P TRKA, currently tachycardic and hypertensive with new leukocytosis. - Patient Problems (1) Status post total knee replacement Code(s): Z96.659 - PRESENCE OF UNSPECIFIED ARTIFICIAL KNEE JOINT SNOMED Code(s ): 6546474074066 Comment: - POD2, POC as per orthopedics - Pain control, pulmonary toilet, bowel regimen, OOB with PT/OT (2) Tachycardia Code(s): R00.0 - TACHYCARDIA, UNSPECIFIED SNOMED Code(s): 3739077 Comment: - May be 2/2 effusion/infiltrate, post-op patient should r/o PE - CTA chest - Levaquin started - Albuterol PRN - Follow labs and trend temps - Encourage IS, cough, deep breathing, ambulation (3) Leukocytosis Code(s): D72.829 - ELEVATED WHITE BLOOD CELL COUNT, UNSPECIFIED SNOMED Code(s) : 456202688 Comment: - May be reactive, however given hx of uncontrolled hyperglycemia and tachycardia, more concerned for infectious etiology - Monitor daily labs and temps (4) Pleural effusion, left Code(s): J90 - PLEURAL EFFUSION, NOT ELSEWHERE CLASSIFIED SNOMED Code(s): 77128224 Comment: - vs early consolidation - albuterol, levaquin, IS, pulmonary toilet (5) DMII (diabetes mellitus, type 2) Comment: - Lispro SS and metformin restarted yesterday - May need long acting if sugars remain high, - Needs lifestyle modification and weight loss for better control outpatient (6) HLD (hyperlipidemia) Code(s): E78.5 - HYPERLIPIDEMIA, UNSPECIFIED SNOMED Code(s): 23031423 Comment: - Continue Lipitor. (7) HTN (hypertension) Code(s): I10 - ESSENTIAL (PRIMARY) HYPERTENSION SNOMED Code(s): 54671151 Comment: - Hypertensive since last night - Continue losartan, PRN BB added Status and Disposition: Inpatient. Dispo per orthopedics
[2017-08-12] MEDS: Levofloxacin 500 MG IVPREMIX(* 500 MG/100 ML BAG IVPB SCH (09:58)
[2017-08-12] MEDS ORDERED: Iodixanol* (CONTRAST) 320 MG/ML 100 ML SDV IV ONE (10:24)
--- NOTE | 2017-08-12 11:25 | RAD ---
INDICATION: 2 days postop following RIGHT knee replacement. Clinical concern for potential pulmonary embolism. COMPARISON: Chest radiograph of the same date and July 31, [address] TECHNIQUE: Multidetector CT images were obtained from the lung apices to the upper abdomen with 89 mL Omnipaque 350 IV contrast. Pulmonary angiogram protocol. Multiplanar reformation including with maximum intensity projection. REPORT: Aside from minimal lower lung zone subsegmental atelectasis the lungs and pleural spaces are clear. Negative for pneumothorax. 2.5 cm LEFT thyroid nodule. Negative for thoracic lymphadenopathy. Cardiomegaly. Negative for pericardial effusion. Normal diameter thoracic aorta. The CT pulmonary angiogram is very limited due to suboptimal opacification of the pulmonary arteries and motion artifact. There are no compelling filling defects in the main through segmental and where visible subsegmental pulmonary arteries to confirm presence of pulmonary embolism. Limited images through the upper abdomen are remarkable for fatty infiltration of the liver. Bilateral healed proximal humeral fractures. Diffuse thoracic degenerative spondylosis and Multilevel segmental ossification of the anterior longitudinal ligament of the thoracic spine consistent with Diffuse Idiopathic Skeletal Hyperostosis (DISH). Negative for acute fracture or suspicious focal osseous lesions. IMPRESSION: 1. Very limited CT pulmonary angiogram due to suboptimal opacification of the pulmonary arteries and motion artifact. There are no compelling filling defects in the main through segmental and where visible subsegmental pulmonary arteries to confirm presence of pulmonary embolism. If there is persistent clinical concern for pulmonary embolism consider repeat CT angiogram or VQ scan for further assessment. Also consider lower extremity venous duplex to assess for DVT if deemed appropriate. 2. No evidence for pneumonia or other acute pulmonary or cardiac process. 3. Consider nonemergent ultrasound follow-up of the thyroid gland given CT evidence for a 2.5 cm LEFT thyroid nodule.
--- NOTE | 2017-08-12 12:43 | PN ---
Progress Note - Progress Note Date of Service: 08/12/17 Note: Orthopedics POD # 2 99.3 F Hct 29%, Plts 226,000. Na is down to 135 from 137. Cl down to 95 from 99. WBC is 23,000 times 2. Last night the hospitalist service was called regarding HTN and Tachycardia. ECG and CXR done. Patient currently is comfortable and stable. RX has been started for pneumonia , levaquin. Right knee dressing was changed by Toya Card and surgery looks good. N/V right foot is intact Impressions: Stable following right TKR CTA shows no convincing evidence of Pul Emb. This was done for tachycardia in a high risk patient. Medical team felt she might have pneumonia and a left pulmonary effusion but the CTA does not confirm either. The elevated WBC is noted. Acute blood loss anemia Hyponatremia, Hypochloremia History of falling at home Overweight, AODM Plans/ Recommendations: OK to go to the PMRU Continue rehab protocol for TKR Medical help appreciated
[2017-08-12] MEDS ORDERED: Iodixanol* (CONTRAST) 320 MG/ML 100 ML SDV IV SCH (13:00)
[2017-08-12] MEDS: Cyclobenzaprine TAB* 10 MG PO PRN (13:05)
[2017-08-12] MEDS: Atorvastatin* 10 MG TAB PO SCH (17:15)
[2017-08-12] MEDS: Mometasone 220 MCG MDI INH SCH (17:56)
[2017-08-12] MEDS ORDERED: Acetaminophen TAB* 325 MG ONE (21:54)
[2017-08-12] MEDS: Acetaminophen TAB* 325 MG PO PRN (21:59)
[2017-08-13 01:11] LABS: Hematocrit 30 % (35-47); Hemoglobin 9.9 g/dl (12.0-16.0)
[2017-08-13] MEDS ORDERED: Scopolamine PATCH Remove* 1 NOTE MISC PATCH OFF ONE (05:40)
[2017-08-13 05:54] LABS: Hematocrit 29 % (35-47); Hemoglobin 9.3 g/dl (12.0-16.0); Mean Platelet Volume 6.8 um3 (7.4-10.4); Platelet Count 211 10^3/ul (150-450)
[2017-08-13] MEDS: Acetaminophen TAB* 325 MG PO PRN ×3 (07:02→17:06)
[2017-08-13] MEDS: oxyCODONE/Acetamin 5/325 MG* TAB PO PRN ×2 (07:02→21:15)
[2017-08-13 08:10] LABS: Hematocrit 27 % (35-47); Hemoglobin 8.9 g/dl (12.0-16.0); Mean Corpuscular HGB Conc 33 g/dl (31-36); Mean Corpuscular Hemoglobin 28 pg (27-31); Mean Corpuscular Volume 86 fL (80-97); Mean Platelet Volume 6.6 um3 (7.4-10.4); Platelet Count 207 10^3/ul (150-450); Red Blood Count 3.16 10^6/ul (4.00-5.40); Red Cell Distribution Width 15 % (10.5-15); White Blood Count 18.1 10^3/ul (3.5-10.8)
[2017-08-13 08:12] LABS: ABS Basophils 0.1 10^3/ul (0-0.2); ABS Eosinophils 0.1 10^3/ul (0-0.6); ABS Lymphocytes 1.2 10^3/ul (1.0-4.8); ABS Monocytes 1.8 10^3/ul (0-0.8); ABS Neutrophils 14.9 10^3/ul (1.5-7.7); ABS Nucleated RBC 0 10^3/ul; Eosinophil % 0.3 % (0-6); Lymphocyte % 6.8 % (25-47); Nucleated Red Blood Cells % 0
--- NOTE | 2017-08-13 08:35 | PN ---
Subjective Date of Service: 08/13/17 Interval History: Patient seen and examined. Feeling better after pain medication this AM. Low grade fever yesterday, now resolved. Denies chills, no cough, no headache, no chest pain and no SOB. Tachycardia resolved. Family History: Unchanged from Admission Social History: Unchanged from Admission Past Medical History: Unchanged from Admission Objective Active Medications: Acetaminophen (Tylenol Tab*) 650 mg PO Q4H PRN PRN Reason: FEVER/PAIN Last Admin: 08/13/17 07:02 Dose: 650 mg Albuterol (Ventolin 2.5 Mg/3 Ml Neb.Joellen*) 2.5 mg INH Q4H PRN PRN Reason: SOB/WHEEZING Aspirin (Aspirin Tab*) 325 mg PO DAILY [facility] Last Admin: 08/12/17 08:07 Dose: 325 mg Atorvastatin Calcium (Lipitor*) 5 mg PO QPM [facility] Last Admin: 08/12/17 17:15 Dose: 5 mg Brimonidine Tartrate (Alphagan P 0.1% (Nf)) 1 drop BOTH EYES BID [facility] Last Admin: 08/12/17 22:08 Dose: 1 drop Cyclobenzaprine HCl (Flexeril Tab*) 5 mg PO TID PRN PRN Reason: SPASMS Last Admin: 08/12/17 13:05 Dose: 5 mg Dextrose (D50w Syringe 50 Ml*) 12.5 gm IV PUSH .FOR FS < 60 - SS PRN PRN Reason: FS < 60 Diphenhydramine HCl (Benadryl Iv*) 25 mg IV Q6H PRN PRN Reason: itching Docusate Sodium (Colace Cap*) 100 mg PO BID [facility] Last Admin: 08/12/17 21:59 Dose: 100 mg Ferrous Sulfate (Ferrous Sulfate Tab*) 325 mg PO BID [facility] Last Admin: 08/12/17 21:59 Dose: 325 mg Fluoxetine HCl (Prozac Cap*) 20 mg PO QAM [facility] Last Admin: 08/12/17 08:07 Dose: 20 mg Fluticasone Propionate (Flonase Nasal [place] 50mcg*) 1 spray NASAL BID [facility] Last Admin: 08/12/17 21:25 Dose: Not Given Lactated Ringer's (Lactated Ringers 1000 Ml Bag*) 1,000 mls @ 100 mls/hr IV PER RATE [facility] Last Admin: 08/10/17 21:33 Dose: 100 mls/hr Levofloxacin/Dextrose (Levaquin 500 Mg Ivpremix(*)) 500 mg in 100 mls @ 100 mls /hr IVPB Q24H [facility] Last Admin: 08/12/17 09:58 Dose: 100 mls/hr Insulin Human Lispro (Humalog*) 0 units SUBCUT ACHS [facility] PRN Reason: Protocol Last Admin: 08/12/17 22:01 Dose: 12 units Iodixanol (Visipaque* 320 (Contrast)) 89 ml IV ONCE [facility] Stop: 08/14/17 10:23 Losartan Potassium (Cozaar Tab*) 25 mg PO DAILY [facility] Last Admin: 08/12/17 08:07 Dose: 25 mg Magnesium Hydroxide (Milk Of Magnesia Liq*) 30 ml PO Q6H PRN PRN Reason: constipation Last Admin: 08/12/17 17:14 Dose: 30 ml Metformin HCl (Glucophage*) 500 mg PO BID [facility] Metoprolol Tartrate (Lopressor Iv*) 5 mg IV Q6H PRN PRN Reason: BLOOD PRESSURE Last Admin: 08/12/17 22:01 Dose: 5 mg Mometasone Furoate (Asmanex 220 Mcg Mdi *) 1 puff INH QPM [facility] Last Admin: 08/12/17 17:56 Dose: Not Given Multivitamins (Theragran Tab*) 1 tab PO DAILY [facility] Last Admin: 08/12/17 08:07 Dose: 1 tab Ondansetron HCl (Zofran Inj*) 4 mg IV Q6H PRN PRN Reason: nausea Oxycodone/Acetaminophen (Percocet 5/325 Tab*) 1 tab PO Q4H PRN PRN Reason: PAIN Last Admin: 08/13/17 07:02 Dose: 1 tab Temazepam (Restoril Cap*) 15 mg PO BEDTIME PRN PRN Reason: INSOMNIA Vital Signs - 8 hr 08/13/17 08/13/17 08/13/17 00:57 03:52 07:02 Temperature 98.7 F Pulse Rate 112 Respiratory 20 20 18 Rate Blood Pressure 147/63 (mmHg) O2 Sat by Pulse 97 Oximetry Oxygen Devices in Use Now: None Appearance: Alert, NAD Eyes: No Scleral Icterus, PERRLA Ears/Nose/Mouth/Throat: NL Teeth, Lips, Gums Neck: NL Appearance and Movements; NL JVP, Trachea Midline Respiratory: Symmetrical Chest Expansion and Respiratory Effort, Clear to Auscultation Cardiovascular: NL Sounds; No Murmurs; No JVD, RRR, No Edema Extremities: No Clubbing, Cyanosis Neurological: Alert and Oriented x 3 Nutrition: Taking PO's Result Diagrams: 08/13/17 08:00 08/12/17 03:45 Microbiology and Other Data: Microbiology 08/12/17 04:53 Aerobic Blood Culture - Preliminary Blood Venous No Growth Day 1 Anaerobic Blood Culture - Preliminary No Growth Day 1 08/12/17 04:47 Aerobic Blood Culture - Preliminary Blood Venous No Growth Day 1 Anaerobic Blood Culture - Preliminary No Growth Day 1 Diagnostic Imaging: Patient Name: DANIEL BARNES Medical Record#: [id number] Ordering Physician: Kirsten Manzano NP Acct.#: [id number] : 1945 Age: 72 Sex: F Location: SURGICAL STAY UNIT Exam Date: 08/12/17935 ADM Status: ADM IN Order Information: CTA CHEST Accession Number: [id number] CPT: 25068 INDICATION: 2 days postop following RIGHT knee replacement. Clinical concern for potential pulmonary embolism. COMPARISON: Chest radiograph of the same date and July 31, [address] TECHNIQUE: Multidetector CT images were obtained from the lung apices to the upper abdomen with 89 mL Omnipaque 350 IV contrast. Pulmonary angiogram protocol. Multiplanar reformation including with maximum intensity projection. REPORT: Aside from minimal lower lung zone subsegmental atelectasis the lungs and pleural spaces are clear. Negative for pneumothorax. 2.5 cm LEFT thyroid nodule. Negative for thoracic lymphadenopathy. Cardiomegaly. Negative for pericardial effusion. Normal diameter thoracic aorta. The CT pulmonary angiogram is very limited due to suboptimal opacification of the pulmonary arteries and motion artifact. There are no compelling filling defects in the main through segmental and where visible subsegmental pulmonary arteries to confirm presence of pulmonary embolism. Limited images through the upper abdomen are remarkable for fatty infiltration of the liver. Bilateral healed proximal humeral fractures. Diffuse thoracic degenerative spondylosis and Multilevel segmental ossification of the anterior longitudinal ligament of the thoracic spine consistent with Diffuse Idiopathic Skeletal Hyperostosis (DISH). Negative for acute fracture or suspicious focal osseous lesions. IMPRESSION: 1. Very limited CT pulmonary angiogram due to suboptimal opacification of the pulmonary arteries and motion artifact. There are no compelling filling defects in the main through segmental and where visible subsegmental pulmonary arteries to confirm presence of pulmonary embolism. If there is persistent clinical concern for pulmonary embolism consider repeat CT angiogram or VQ scan for further assessment. Also consider lower extremity venous duplex to assess for DVT if deemed appropriate. 2. No evidence for pneumonia or other acute pulmonary or cardiac process. 3. Consider nonemergent ultrasound follow-up of the thyroid gland given CT evidence for a 2.5 cm LEFT thyroid nodule. <Electronically signed by Kush Espinosa MD in [place]> 08/12/17 1122 Dictated By: Kush Espinosa MD Dictated Date/Time: 08/12/17 1122 Transcribed Date/Time: 08/12/17 1112 Copy to: CC:Dannielle Mtz MD; Richar Antunez MD; Kirsten Manzano NP; Tin Allison MD 1 of 2 Assess/Plan/Problems-Billing Assessment: Patient is a 72yo female with a PMH for DMII, HTN, OA is S/P RTKA, with post- operative leukocytosis, fever and tachycardia, now resolving/improving. - Patient Problems (1) Status post total knee replacement Code(s): Z96.659 - PRESENCE OF UNSPECIFIED ARTIFICIAL KNEE JOINT SNOMED Code(s ): 5870260552003 Comment: - POD3, POC as per orthopedics - Pain control, pulmonary toilet, bowel regimen, encourage OOB with PT/OT (2) Tachycardia Code(s): R00.0 - TACHYCARDIA, UNSPECIFIED SNOMED Code(s): 9001401 Comment: - CTA chest negative for PE - CXR may have early infiltrate/effusion - Continue levaquin day 2/7 - Albuterol PRN - WBCs and HR trending down, afebrile - Encourage IS, cough, deep breathing, ambulation (3) Leukocytosis Code(s): D72.829 - ELEVATED WHITE BLOOD CELL COUNT, UNSPECIFIED SNOMED Code(s) : 845423436 Comment: - WBCs trending down - Afebrile (4) Pleural effusion, left Code(s): J90 - PLEURAL EFFUSION, NOT ELSEWHERE CLASSIFIED SNOMED Code(s): 74087820 Comment: - vs early consolidation - albuterol, levaquin day 2/, IS, pulmonary toilet (5) DMII (diabetes mellitus, type 2) Comment: - Lispro SS and metformin restarted yesterday - May need long acting if sugars remain high, - Needs lifestyle modification and weight loss for better control outpatient (6) HLD (hyperlipidemia) Code(s): E78.5 - HYPERLIPIDEMIA, UNSPECIFIED SNOMED Code(s): 31016954 Comment: - Continue Lipitor (7) HTN (hypertension) Code(s): I10 - ESSENTIAL (PRIMARY) HYPERTENSION SNOMED Code(s): 23938562 Comment: - BP improved - Continue losartan, PRN BB Status and Disposition: Inpatient. Dispo per orthopedics. Medically stable for PMRU transfer today.
[2017-08-13] MEDS: Losartan TAB* 25 MG PO SCH (09:00)
[2017-08-13] MEDS: FLUoxetine CAP* 20 MG PO SCH (09:00)
[2017-08-13] MEDS: Aspirin TAB* 325 MG PO SCH (09:00)
[2017-08-13] MEDS: Docusate CAP* 100 MG PO SCH ×2 (09:00→21:17)
[2017-08-13] MEDS: Ferrous Sulfate TAB* 325 MG PO SCH ×2 (09:00→21:15)
[2017-08-13] MEDS: Levofloxacin 500 MG IVPREMIX(* 500 MG/100 ML BAG IVPB SCH (09:00)
[2017-08-13] MEDS: Vitamin THERAPEUTIC TAB PO SCH (09:00)
[2017-08-13] MEDS: PTO Brimonidine P 0.1%(NF) 1 DROP BTL BOTH EYES SCH ×2 (09:01→21:16)
[2017-08-13] MEDS: Fluticasone NASAL SPRAY 50MCG* 16 gm SPRAY BTL NASAL SCH ×2 (09:01→21:17)
[2017-08-13] MEDS: Insulin LISPRO* 1 UNITS UNIT SUBCUT SCH ×4 (09:01→21:27)
--- NOTE | 2017-08-13 13:00 | PN ---
Progress Note - Progress Note Date of Service: 08/13/17 SOAP: Subjective: 72 y/o female s/p R TKA by Dr. Bear 08/11/2017. Patient feeling well, denoes SOB, chest pain. Working with PT. VSS, afebrile overnight. Objective: General- Well appearing, NAD, AO Resting in chair comfortably. MSK- RLE- DF/PF = b/l, PT 2+, negative homans sign, dressing removed, incision c /d/i, no drainage noted, no erythema, mild ecchymosis. Vital Signs Temp 97.0 F 08/13/17 11:42 Pulse 95 08/13/17 11:42 Resp 16 08/13/17 11:42 BP 134/52 08/13/17 11:42 Pulse Ox 99 08/13/17 11:42 Intake & Output 08/12/17 08/13/17 08/13/17 18:59 06:59 18:59 Intake Total 2640 670 200 Output Total 900 600 850 Balance 1740 70 -650 Intake: IV Fluids 1590 ABX - LEVAQUIN 100 NS 1490 Oral 1050 670 200 Output: Urine 900 600 850 Other: Estimated Void Medium Large # Bowel Movements 0 # Voids 1 1 Assessment: Stable 72 y/o female s/p R TKA by Dr. Bear 08/11/2017. Plan: - DVT prophylaxis- ASA at home - Continue PT/ OT - Follow up with Dr. Antunez within 3-4 weeks - H&H - stable - post-op IV ABX - Completed - Elevated WBC- Continue to monitor. bld, urine cultures negative. Levaquin running. Acetaminophen (Tylenol Tab*) 650 mg PO Q4H PRN PRN Reason: FEVER/PAIN Last Admin: 08/13/17 12:24 Dose: 650 mg Albuterol (Ventolin 2.5 Mg/3 Ml Neb.Joellen*) 2.5 mg INH Q4H PRN PRN Reason: SOB/WHEEZING Aspirin (Aspirin Tab*) 325 mg PO DAILY [facility] Last Admin: 08/13/17 09:00 Dose: 325 mg Atorvastatin Calcium (Lipitor*) 5 mg PO QPM [facility] Last Admin: 08/12/17 17:15 Dose: 5 mg Brimonidine Tartrate (Alphagan P 0.1% (Nf)) 1 drop BOTH EYES BID [facility] Last Admin: 08/13/17 09:01 Dose: 1 drop Cyclobenzaprine HCl (Flexeril Tab*) 5 mg PO TID PRN PRN Reason: SPASMS Last Admin: 08/12/17 13:05 Dose: 5 mg Dextrose (D50w Syringe 50 Ml*) 12.5 gm IV PUSH .FOR FS < 60 - SS PRN PRN Reason: FS < 60 Diphenhydramine HCl (Benadryl Iv*) 25 mg IV Q6H PRN PRN Reason: itching Docusate Sodium (Colace Cap*) 100 mg PO BID [facility] Last Admin: 08/13/17 09:00 Dose: 100 mg Ferrous Sulfate (Ferrous Sulfate Tab*) 325 mg PO BID [facility] Last Admin: 08/13/17 09:00 Dose: 325 mg Fluoxetine HCl (Prozac Cap*) 20 mg PO QAM [facility] Last Admin: 08/13/17 09:00 Dose: 20 mg Fluticasone Propionate (Flonase Nasal [place] 50mcg*) 1 spray NASAL BID [facility] Last Admin: 08/13/17 09:01 Dose: Not Given Lactated Ringer's (Lactated Ringers 1000 Ml Bag*) 1,000 mls @ 100 mls/hr IV PER RATE [facility] Last Admin: 08/10/17 21:33 Dose: 100 mls/hr Levofloxacin/Dextrose (Levaquin 500 Mg Ivpremix(*)) 500 mg in 100 mls @ 100 mls /hr IVPB Q24H [facility] Last Admin: 08/13/17 09:00 Dose: 100 mls/hr Insulin Human Lispro (Humalog*) 0 units SUBCUT ACHS [facility] PRN Reason: Protocol Last Admin: 08/13/17 12:51 Dose: 3 units Iodixanol (Visipaque* 320 (Contrast)) 89 ml IV ONCE [facility] Stop: 08/14/17 10:23 Losartan Potassium (Cozaar Tab*) 25 mg PO DAILY [facility] Last Admin: 08/13/17 09:00 Dose: 25 mg Magnesium Hydroxide (Milk Of Magnesia Liq*) 30 ml PO Q6H PRN PRN Reason: constipation Last Admin: 08/12/17 17:14 Dose: 30 ml Metformin HCl (Glucophage*) 500 mg PO BID [facility] Metoprolol Tartrate (Lopressor Iv*) 5 mg IV Q6H PRN PRN Reason: BLOOD PRESSURE Last Admin: 08/12/17 22:01 Dose: 5 mg Mometasone Furoate (Asmanex 220 Mcg Mdi *) 1 puff INH QPM [facility] Last Admin: 08/12/17 17:56 Dose: Not Given Multivitamins (Theragran Tab*) 1 tab PO DAILY [facility] Last Admin: 08/13/17 09:00 Dose: 1 tab Ondansetron HCl (Zofran Inj*) 4 mg IV Q6H PRN PRN Reason: nausea Oxycodone/Acetaminophen (Percocet 5/325 Tab*) 1 tab PO Q4H PRN PRN Reason: PAIN Last Admin: 08/13/17 07:02 Dose: 1 tab Temazepam (Restoril Cap*) 15 mg PO BEDTIME PRN PRN Reason: INSOMNIA
[2017-08-13] MEDS: Atorvastatin* 10 MG TAB PO SCH (17:05)
[2017-08-13] MEDS: Mometasone 220 MCG MDI INH SCH (17:52)
[2017-08-14] MEDS: Acetaminophen TAB* 325 MG PO PRN ×4 (02:12→21:20)
[2017-08-14] MEDS: oxyCODONE/Acetamin 5/325 MG* TAB PO PRN ×4 (04:08→23:03)
[2017-08-14 05:40] LABS: Hematocrit 26 % (35-47); Hemoglobin 8.5 g/dl (12.0-16.0); Mean Platelet Volume 6.9 um3 (7.4-10.4); Platelet Count 235 10^3/ul (150-450)
[2017-08-14] MEDS: Docusate CAP* 100 MG PO SCH ×2 (07:57→20:26)
[2017-08-14] MEDS: Ferrous Sulfate TAB* 325 MG PO SCH ×2 (07:57→21:20)
[2017-08-14] MEDS: Vitamin THERAPEUTIC TAB PO SCH (07:57)
[2017-08-14] MEDS: Losartan TAB* 25 MG PO SCH (07:57)
[2017-08-14] MEDS: Aspirin TAB* 325 MG PO SCH (07:57)
[2017-08-14] MEDS: FLUoxetine CAP* 20 MG PO SCH (07:58)
[2017-08-14] MEDS: Fluticasone NASAL SPRAY 50MCG* 16 gm SPRAY BTL NASAL SCH ×2 (08:00→20:27)
[2017-08-14] MEDS: Levofloxacin 500 MG IVPREMIX(* 500 MG/100 ML BAG IVPB SCH (08:01)
[2017-08-14] MEDS: Insulin LISPRO* 1 UNITS UNIT SUBCUT SCH ×4 (08:04→21:29)
[2017-08-14] MEDS: PTO Brimonidine P 0.1%(NF) 1 DROP BTL BOTH EYES SCH ×2 (08:06→21:19)
--- NOTE | 2017-08-14 09:57 | PN ---
Progress Note - Progress Note Date of Service: 08/14/17 SOAP: Subjective: 72 y/o female s/p R TKA by Dr. Antunez on 08/11/2017. Patient feeling well, denies SOB, chest pain, nausea, vomiting, numbness or tingling. Working with PT. VSS, afebrile overnight. Objective: General- Well appearing, NAD, AO Resting in chair comfortably. MSK- RLE- DF/PF = b/l, PT 2+, negative homans sign, dressing c/d/i, sensation intact to light touch distally. Vital Signs Temp 98.7 F 08/14/17 03:48 Pulse 106 08/14/17 05:13 Resp 16 08/14/17 07:57 BP 147/60 08/14/17 03:48 Pulse Ox 94 08/14/17 07:20 Intake & Output 08/13/17 08/14/17 08/14/17 18:59 06:59 18:59 Intake Total 560 660 220 Output Total 1250 250 Balance -690 410 220 Intake: Oral 560 660 220 Output: Urine 1250 250 Other: Estimated Void Large # Bowel Movements 1 Estimated Stool Amount Small Assessment: Stable 72 y/o female s/p R TKA by Dr. Antunez on 08/11/2017. Plan: - DVT prophylaxis- ASA at home - Continue PT/ OT - Follow up with Dr. Antunez within 3-4 weeks - H&H - stable - D/C to PMRU tomorrow morning
[2017-08-14 10:29] LABS: Mean Corpuscular HGB Conc 32 g/dl (31-36); Mean Corpuscular Hemoglobin 28 pg (27-31); Mean Corpuscular Volume 88 fL (80-97); Red Blood Count 2.97 10^6/ul (4.00-5.40); Red Cell Distribution Width 16 % (10.5-15); White Blood Count 14.3 10^3/ul (3.5-10.8)
--- NOTE | 2017-08-14 10:33 | PN ---
Subjective Date of Service: 08/14/17 Interval History: Patient seen and examined. Had some back pain overnight, controlled this morning. Denies SOB, no chest pain, no n/v, no fever or chills. Family History: Unchanged from Admission Social History: Unchanged from Admission Past Medical History: Unchanged from Admission Objective Active Medications: Acetaminophen (Tylenol Tab*) 650 mg PO Q4H PRN PRN Reason: FEVER/PAIN Last Admin: 08/14/17 07:58 Dose: 325 mg Albuterol (Ventolin 2.5 Mg/3 Ml Neb.Joellen*) 2.5 mg INH Q4H PRN PRN Reason: SOB/WHEEZING Aspirin (Aspirin Tab*) 325 mg PO DAILY [facility] Last Admin: 08/14/17 07:57 Dose: 325 mg Atorvastatin Calcium (Lipitor*) 5 mg PO QPM [facility] Last Admin: 08/13/17 17:05 Dose: 5 mg Brimonidine Tartrate (Alphagan P 0.1% (Nf)) 1 drop BOTH EYES BID [facility] Last Admin: 08/14/17 08:06 Dose: 1 drop Cyclobenzaprine HCl (Flexeril Tab*) 5 mg PO TID PRN PRN Reason: SPASMS Last Admin: 08/12/17 13:05 Dose: 5 mg Dextrose (D50w Syringe 50 Ml*) 12.5 gm IV PUSH .FOR FS < 60 - SS PRN PRN Reason: FS < 60 Diphenhydramine HCl (Benadryl Iv*) 25 mg IV Q6H PRN PRN Reason: itching Docusate Sodium (Colace Cap*) 100 mg PO BID [facility] Last Admin: 08/14/17 07:57 Dose: 100 mg Ferrous Sulfate (Ferrous Sulfate Tab*) 325 mg PO BID [facility] Last Admin: 08/14/17 07:57 Dose: 325 mg Fluoxetine HCl (Prozac Cap*) 20 mg PO QAM [facility] Last Admin: 08/14/17 07:58 Dose: 20 mg Fluticasone Propionate (Flonase Nasal [place] 50mcg*) 1 spray NASAL BID [facility] Last Admin: 08/14/17 08:00 Dose: Not Given Lactated Ringer's (Lactated Ringers 1000 Ml Bag*) 1,000 mls @ 100 mls/hr IV PER RATE [facility] Last Admin: 08/10/17 21:33 Dose: 100 mls/hr Levofloxacin/Dextrose (Levaquin 500 Mg Ivpremix(*)) 500 mg in 100 mls @ 100 mls /hr IVPB Q24H [facility] Last Admin: 08/14/17 08:01 Dose: 100 mls/hr Insulin Human Lispro (Humalog*) 0 units SUBCUT ACHS RAFAEL PRN Reason: Protocol Last Admin: 08/14/17 08:04 Dose: 6 units Losartan Potassium (Cozaar Tab*) 25 mg PO DAILY [facility] Last Admin: 08/14/17 07:57 Dose: 25 mg Magnesium Hydroxide (Milk Of Magnesia Liq*) 30 ml PO Q6H PRN PRN Reason: constipation Last Admin: 08/12/17 17:14 Dose: 30 ml Metformin HCl (Glucophage*) 500 mg PO BID [facility] Metoprolol Tartrate (Lopressor Iv*) 5 mg IV Q6H PRN PRN Reason: BLOOD PRESSURE Last Admin: 08/12/17 22:01 Dose: 5 mg Mometasone Furoate (Asmanex 220 Mcg Mdi *) 1 puff INH QPM [facility] Last Admin: 08/13/17 17:52 Dose: Not Given Multivitamins (Theragran Tab*) 1 tab PO DAILY [facility] Last Admin: 08/14/17 07:57 Dose: 1 tab Ondansetron HCl (Zofran Inj*) 4 mg IV Q6H PRN PRN Reason: nausea Oxycodone/Acetaminophen (Percocet 5/325 Tab*) 1 tab PO Q4H PRN PRN Reason: PAIN Last Admin: 08/14/17 07:57 Dose: 1 tab Temazepam (Restoril Cap*) 15 mg PO BEDTIME PRN PRN Reason: INSOMNIA Vital Signs - 8 hr 08/14/17 08/14/17 08/14/17 03:48 04:08 05:13 Temperature 98.7 F Pulse Rate 110 106 Respiratory 16 17 Rate Blood Pressure 147/60 (mmHg) O2 Sat by Pulse 97 94 Oximetry 08/14/17 08/14/17 08/14/17 07:20 07:24 07:53 Temperature 97.6 F Pulse Rate 108 Respiratory 16 16 18 Rate Blood Pressure 136/49 (mmHg) O2 Sat by Pulse 94 96 Oximetry 08/14/17 08/14/17 07:57 10:25 Temperature Pulse Rate Respiratory 16 15 Rate Blood Pressure (mmHg) O2 Sat by Pulse Oximetry Oxygen Devices in Use Now: None Appearance: Alert, NAD Eyes: No Scleral Icterus, PERRLA Ears/Nose/Mouth/Throat: NL Teeth, Lips, Gums, Mucous Membranes Moist Neck: NL Appearance and Movements; NL JVP, Trachea Midline Respiratory: Symmetrical Chest Expansion and Respiratory Effort, Clear to Auscultation Cardiovascular: NL Sounds; No Murmurs; No JVD, RRR, No Edema Abdominal: NL Sounds; No Tenderness; No Distention, No Hepatosplenomegaly Skin: No Rash or Ulcers Neurological: Alert and Oriented x 3, NL Sensation Nutrition: Taking PO's Result Diagrams: 08/14/17 05:23 08/12/17 03:45 Microbiology and Other Data: Microbiology 08/12/17 04:53 Aerobic Blood Culture - Preliminary Blood Venous No Growth Day 1 Anaerobic Blood Culture - Preliminary No Growth Day 1 08/12/17 04:47 Aerobic Blood Culture - Preliminary Blood Venous No Growth Day 1 Anaerobic Blood Culture - Preliminary No Growth Day 1 Diagnostic Imaging: Patient Name: DANIEL BARNES Medical Record#: [id number] Ordering Physician: Kirsten Manzano NP Acct.#: [id number] : 1945 Age: 72 Sex: F Location: [facility]GICAL STAY [facility]IT Exam Date: 08/12/17935 ADM Status: ADM IN Order Information: CTA CHEST Accession Number: [id number] CPT: 07708 INDICATION: 2 days postop following RIGHT knee replacement. Clinical concern for potential pulmonary embolism. COMPARISON: Chest radiograph of the same date and July 31, [address] TECHNIQUE: Multidetector CT images were obtained from the lung apices to the upper abdomen with 89 mL Omnipaque 350 IV contrast. Pulmonary angiogram protocol. Multiplanar reformation including with maximum intensity projection. REPORT: Aside from minimal lower lung zone subsegmental atelectasis the lungs and pleural spaces are clear. Negative for pneumothorax. 2.5 cm LEFT thyroid nodule. Negative for thoracic lymphadenopathy. Cardiomegaly. Negative for pericardial effusion. Normal diameter thoracic aorta. The CT pulmonary angiogram is very limited due to suboptimal opacification of the pulmonary arteries and motion artifact. There are no compelling filling defects in the main through segmental and where visible subsegmental pulmonary arteries to confirm presence of pulmonary embolism. Limited images through the upper abdomen are remarkable for fatty infiltration of the liver. Bilateral healed proximal humeral fractures. Diffuse thoracic degenerative spondylosis and Multilevel segmental ossification of the anterior longitudinal ligament of the thoracic spine consistent with Diffuse Idiopathic Skeletal Hyperostosis (DISH). Negative for acute fracture or suspicious focal osseous lesions. IMPRESSION: 1. Very limited CT pulmonary angiogram due to suboptimal opacification of the pulmonary arteries and motion artifact. There are no compelling filling defects in the main through segmental and where visible subsegmental pulmonary arteries to confirm presence of pulmonary embolism. If there is persistent clinical concern for pulmonary embolism consider repeat CT angiogram or VQ scan for further assessment. Also consider lower extremity venous duplex to assess for DVT if deemed appropriate. 2. No evidence for pneumonia or other acute pulmonary or cardiac process. 3. Consider nonemergent ultrasound follow-up of the thyroid gland given CT evidence for a 2.5 cm LEFT thyroid nodule. <Electronically signed by Kush Espinosa MD in [place]> 08/12/17 1122 Dictated By: Kush Espinosa MD Dictated Date/Time: 08/12/17 112 Transcribed Date/Time: 08/12/17 1112 Copy to: CC:Dannielle Mtz MD; Richar Antunez MD; Kirsten Manzano NP; Tin Allison MD 1 of 2 Assess/Plan/Problems-Billing Assessment: Patient is a 72yo female with a PMH for DMII, HTN, OA is S/P RTKA, with post- operative leukocytosis, fever and tachycardia, now resolving/improving. - Patient Problems (1) Status post total knee replacement Code(s): Z96.659 - PRESENCE OF UNSPECIFIED ARTIFICIAL KNEE JOINT SNOMED Code(s ): 0017695120721 Comment: - POD4, POC as per orthopedics - Pain control, pulmonary toilet, bowel regimen, encourage OOB with PT/OT (2) Tachycardia Code(s): R00.0 - TACHYCARDIA, UNSPECIFIED SNOMED Code(s): 5424692 Comment: - CTA chest negative for PE - CXR may have early infiltrate/effusion - Continue levaquin day 3/7 - Albuterol PRN - WBCs and HR trending down, afebrile, follow today's result - Encourage IS, cough, deep breathing, ambulation (3) Leukocytosis Code(s): D72.829 - ELEVATED WHITE BLOOD CELL COUNT, UNSPECIFIED SNOMED Code(s) : 028105775 Comment: - WBCs trending down yesterday, pending today's labs - Afebrile (4) Pleural effusion, left Code(s): J90 - PLEURAL EFFUSION, NOT ELSEWHERE CLASSIFIED SNOMED Code(s): 02389820 Comment: - vs early consolidation - albuterol, levaquin day 3/7, IS, pulmonary toilet (5) DMII (diabetes mellitus, type 2) Comment: - Lispro SS and metformin restarted - Needs lifestyle modification and weight loss for better control outpatient (6) HLD (hyperlipidemia) Code(s): E78.5 - HYPERLIPIDEMIA, UNSPECIFIED SNOMED Code(s): 68037877 Comment: - Continue Lipitor (7) HTN (hypertension) Code(s): I10 - ESSENTIAL (PRIMARY) HYPERTENSION SNOMED Code(s): 41827072 Comment: - BP improved - Continue losartan, DC BB Status and Disposition: Inpatient. Dispo per orthopedics. Plan for PMRU tomorrow. Remains medically optimized.
[2017-08-14] MEDS: Atorvastatin* 10 MG TAB PO SCH (17:31)
[2017-08-14] MEDS: Mometasone 220 MCG MDI INH SCH (17:31)
[2017-08-14] MEDS: metFORMIN* 500 MG TAB PO SCH (21:20)
[2017-08-15] MEDS: Ibuprofen TAB* 400 MG PO PRN ×2 (02:32→10:24)
[2017-08-15] MEDS: oxyCODONE/Acetamin 5/325 MG* TAB PO PRN (05:21)
[2017-08-15 05:46] LABS: Hematocrit 25 % (35-47); Hemoglobin 8.4 g/dl (12.0-16.0); Mean Platelet Volume 6.5 um3 (7.4-10.4); Platelet Count 301 10^3/ul (150-450)
[2017-08-15 08:20] VITALS: BP 150/54
[2017-08-15] MEDS: Vitamin THERAPEUTIC TAB PO SCH (08:34)
[2017-08-15] MEDS: FLUoxetine CAP* 20 MG PO SCH (08:34)
[2017-08-15] MEDS: Docusate CAP* 100 MG PO SCH (08:34)
[2017-08-15] MEDS: Aspirin TAB* 325 MG PO SCH (08:34)
[2017-08-15] MEDS: Ferrous Sulfate TAB* 325 MG PO SCH (08:34)
[2017-08-15] MEDS: Losartan TAB* 25 MG PO SCH (08:34)
[2017-08-15] MEDS: metFORMIN* 500 MG TAB PO SCH (08:34)
[2017-08-15] MEDS: Insulin LISPRO* 1 UNITS UNIT SUBCUT SCH (08:34)
[2017-08-15] MEDS: Fluticasone NASAL SPRAY 50MCG* 16 gm SPRAY BTL NASAL SCH (08:35)
[2017-08-15] MEDS: PTO Brimonidine P 0.1%(NF) 1 DROP BTL BOTH EYES SCH (08:39)
[2017-08-15] MEDS: Levofloxacin 500 MG IVPREMIX(* 500 MG/100 ML BAG IVPB SCH (08:39)
[2017-08-15] MEDS ORDERED: metFORMIN* 500 MG TAB PO SCH (08:45)
--- NOTE | 2017-08-15 08:45 | PN ---
Subjective Date of Service: 08/15/17 Interval History: Patient seen and examined, increased pain again overnight, better this AM, no complaints. Family History: Unchanged from Admission Social History: Unchanged from Admission Past Medical History: Unchanged from Admission Objective Active Medications: Acetaminophen (Tylenol Tab*) 650 mg PO Q4H PRN PRN Reason: FEVER/PAIN Last Admin: 08/14/17 21:20 Dose: 650 mg Albuterol (Ventolin 2.5 Mg/3 Ml Neb.Joellen*) 2.5 mg INH Q4H PRN PRN Reason: SOB/WHEEZING Aspirin (Aspirin Tab*) 325 mg PO DAILY [facility] Last Admin: 08/14/17 07:57 Dose: 325 mg Atorvastatin Calcium (Lipitor*) 5 mg PO QPM [facility] Last Admin: 08/14/17 17:31 Dose: 5 mg Brimonidine Tartrate (Alphagan P 0.1% (Nf)) 1 drop BOTH EYES BID [facility] Last Admin: 08/14/17 21:19 Dose: 1 drop Cyclobenzaprine HCl (Flexeril Tab*) 5 mg PO TID PRN PRN Reason: SPASMS Last Admin: 08/12/17 13:05 Dose: 5 mg Dextrose (D50w Syringe 50 Ml*) 12.5 gm IV PUSH .FOR FS < 60 - SS PRN PRN Reason: FS < 60 Diphenhydramine HCl (Benadryl Iv*) 25 mg IV Q6H PRN PRN Reason: itching Docusate Sodium (Colace Cap*) 100 mg PO BID [facility] Last Admin: 08/14/17 20:26 Dose: Not Given Ferrous Sulfate (Ferrous Sulfate Tab*) 325 mg PO BID [facility] Last Admin: 08/14/17 21:20 Dose: 325 mg Fluoxetine HCl (Prozac Cap*) 20 mg PO QAM [facility] Last Admin: 08/14/17 07:58 Dose: 20 mg Fluticasone Propionate (Flonase Nasal [place] 50mcg*) 1 spray NASAL BID [facility] Last Admin: 08/14/17 20:27 Dose: Not Given Lactated Ringer's (Lactated Ringers 1000 Ml Bag*) 1,000 mls @ 100 mls/hr IV PER RATE [facility] Last Admin: 08/10/17 21:33 Dose: 100 mls/hr Levofloxacin/Dextrose (Levaquin 500 Mg Ivpremix(*)) 500 mg in 100 mls @ 100 mls /hr IVPB Q24H [facility] Last Admin: 08/14/17 08:01 Dose: 100 mls/hr Ibuprofen (Motrin Tab*) 400 mg PO Q6H PRN PRN Reason: PAIN Last Admin: 08/15/17 02:32 Dose: 400 mg Insulin Human Lispro (Humalog*) 0 units SUBCUT ACHS RAFAEL PRN Reason: Protocol Last Admin: 08/14/17 21:29 Dose: 12 units Losartan Potassium (Cozaar Tab*) 25 mg PO DAILY [facility] Last Admin: 08/14/17 07:57 Dose: 25 mg Magnesium Hydroxide (Milk Of Magnesia Liq*) 30 ml PO Q6H PRN PRN Reason: constipation Last Admin: 08/12/17 17:14 Dose: 30 ml Metformin HCl (Glucophage*) 500 mg PO BID [facility] Last Admin: 08/14/17 21:20 Dose: 500 mg Mometasone Furoate (Asmanex 220 Mcg Mdi *) 1 puff INH QPM [facility] Last Admin: 08/14/17 17:31 Dose: Not Given Multivitamins (Theragran Tab*) 1 tab PO DAILY [facility] Last Admin: 08/14/17 07:57 Dose: 1 tab Ondansetron HCl (Zofran Inj*) 4 mg IV Q6H PRN PRN Reason: nausea Oxycodone/Acetaminophen (Percocet 5/325 Tab*) 1 tab PO Q4H PRN PRN Reason: PAIN Last Admin: 08/15/17 05:21 Dose: 1 tab Temazepam (Restoril Cap*) 15 mg PO BEDTIME PRN PRN Reason: INSOMNIA Vital Signs - 8 hr 08/15/17 08/15/17 08/15/17 01:00 05:00 05:21 Temperature 97.4 F Pulse Rate 102 Respiratory 16 16 16 Rate Blood Pressure 148/71 (mmHg) O2 Sat by Pulse 96 Oximetry 08/15/17 08/15/17 08/15/17 07:38 08:00 08:22 Temperature 98.5 F Pulse Rate 104 Respiratory 16 16 16 Rate Blood Pressure 150/54 (mmHg) O2 Sat by Pulse 99 99 Oximetry Oxygen Devices in Use Now: None Appearance: Alert, NAD Eyes: No Scleral Icterus, PERRLA Ears/Nose/Mouth/Throat: NL Teeth, Lips, Gums, Mucous Membranes Moist Neck: NL Appearance and Movements; NL JVP, Trachea Midline Respiratory: Symmetrical Chest Expansion and Respiratory Effort, Clear to Auscultation Cardiovascular: NL Sounds; No Murmurs; No JVD, RRR - intermittent tachycardia Abdominal: NL Sounds; No Tenderness; No Distention Extremities: No Edema Skin: No Rash or Ulcers Neurological: Alert and Oriented x 3, NL Sensation Nutrition: Taking PO's Result Diagrams: 08/15/17 05:27 08/12/17 03:45 Microbiology and Other Data: Microbiology 08/12/17 04:53 Aerobic Blood Culture - Preliminary Blood Venous No Growth Day 1 Anaerobic Blood Culture - Preliminary No Growth Day 1 08/12/17 04:47 Aerobic Blood Culture - Preliminary Blood Venous No Growth Day 1 Anaerobic Blood Culture - Preliminary No Growth Day 1 Diagnostic Imaging: Patient Name: DANIEL BARNES Medical Record#: [id number] Ordering Physician: Kirsten Manzano NP Acct.#: [id number] : 1945 Age: 72 Sex: F Location: SURGICAL STAY UNIT Exam Date: 08/12/17935 ADM Status: ADM IN Order Information: CTA CHEST Accession Number: [id number] CPT: 78412 INDICATION: 2 days postop following RIGHT knee replacement. Clinical concern for potential pulmonary embolism. COMPARISON: Chest radiograph of the same date and July 31, [address] TECHNIQUE: Multidetector CT images were obtained from the lung apices to the upper abdomen with 89 mL Omnipaque 350 IV contrast. Pulmonary angiogram protocol. Multiplanar reformation including with maximum intensity projection. REPORT: Aside from minimal lower lung zone subsegmental atelectasis the lungs and pleural spaces are clear. Negative for pneumothorax. 2.5 cm LEFT thyroid nodule. Negative for thoracic lymphadenopathy. Cardiomegaly. Negative for pericardial effusion. Normal diameter thoracic aorta. The CT pulmonary angiogram is very limited due to suboptimal opacification of the pulmonary arteries and motion artifact. There are no compelling filling defects in the main through segmental and where visible subsegmental pulmonary arteries to confirm presence of pulmonary embolism. Limited images through the upper abdomen are remarkable for fatty infiltration of the liver. Bilateral healed proximal humeral fractures. Diffuse thoracic degenerative spondylosis and Multilevel segmental ossification of the anterior longitudinal ligament of the thoracic spine consistent with Diffuse Idiopathic Skeletal Hyperostosis (DISH). Negative for acute fracture or suspicious focal osseous lesions. IMPRESSION: 1. Very limited CT pulmonary angiogram due to suboptimal opacification of the pulmonary arteries and motion artifact. There are no compelling filling defects in the main through segmental and where visible subsegmental pulmonary arteries to confirm presence of pulmonary embolism. If there is persistent clinical concern for pulmonary embolism consider repeat CT angiogram or VQ scan for further assessment. Also consider lower extremity venous duplex to assess for DVT if deemed appropriate. 2. No evidence for pneumonia or other acute pulmonary or cardiac process. 3. Consider nonemergent ultrasound follow-up of the thyroid gland given CT evidence for a 2.5 cm LEFT thyroid nodule. <Electronically signed by Kush Espinosa MD in [facility]> 08/12/17 1122 Dictated By: Kush Espinosa MD Dictated Date/Time: 08/12/17 1122 Transcribed Date/Time: 08/12/17 1112 Copy to: CC:Dannielle Mtz MD; Richar Antunez MD; Kirsten Manzano NP; Tin Allison MD 1 of 2 Assess/Plan/Problems-Billing Assessment: Patient is a 72yo female with a PMH for DMII, HTN, OA is S/P RTKA, with post- operative leukocytosis, fever and tachycardia, now resolving/improving. - Patient Problems (1) Status post total knee replacement Code(s): Z96.659 - PRESENCE OF UNSPECIFIED ARTIFICIAL KNEE JOINT SNOMED Code(s ): 2295417338908 Comment: - POD5, POC as per orthopedics - Pain control, pulmonary toilet, bowel regimen, encourage OOB with PT/OT - DC to PMRU today (2) Tachycardia Code(s): R00.0 - TACHYCARDIA, UNSPECIFIED SNOMED Code(s): 3402095 Comment: - CTA chest negative for PE - CXR may have early infiltrate/effusion, also has had significant pain since surgery - Continue levaquin day 3/7 - Albuterol PRN - WBCs down to 14.3 yesterday - Encourage IS, cough, deep breathing, ambulation (3) Leukocytosis Code(s): D72.829 - ELEVATED WHITE BLOOD CELL COUNT, UNSPECIFIED SNOMED Code(s) : 311098399 Comment: - WBCs down to 14.3, stable - Afebrile (4) Pleural effusion, left Code(s): J90 - PLEURAL EFFUSION, NOT ELSEWHERE CLASSIFIED SNOMED Code(s): 65600996 Comment: - vs early consolidation - albuterol, levaquin day 4/7, IS, pulmonary toilet - Improved (5) DMII (diabetes mellitus, type 2) Comment: - Lispro SS - Increase metformin today - Needs lifestyle modification and weight loss for better control outpatient (6) HLD (hyperlipidemia) Code(s): E78.5 - HYPERLIPIDEMIA, UNSPECIFIED SNOMED Code(s): 28647940 Comment: - Continue Lipitor (7) HTN (hypertension) Code(s): I10 - ESSENTIAL (PRIMARY) HYPERTENSION SNOMED Code(s): 68651172 Comment: - BP improved - Continue losartan Status and Disposition: Inpatient. Dispo per orthopedics. Remains clear for DC to PMRU today.
--- NOTE | 2017-08-15 09:47 | PN ---
Progress Note - Progress Note Date of Service: 08/15/17 SOAP: Subjective: 72 y/o female s/p R TKA by Dr. Antunez on 08/11/2017. States she has a better nights sleep last night. Patient feeling well, denies SOB, chest pain, nausea, vomiting, numbness or tingling. Working with PT. VSS, afebrile overnight. Objective: General- Well appearing, NAD, AO Resting in chair comfortably. MSK- RLE- DF/PF = b/l, PT 2+, negative homans sign, dressing c/d/i, sensation intact to light touch distally. Vital Signs Temp 98.5 F 08/15/17 07:38 Pulse 104 08/15/17 07:38 Resp 16 08/15/17 08:22 BP 150/54 08/15/17 07:38 Pulse Ox 99 08/15/17 08:00 Intake & Output 08/14/17 08/15/17 08/15/17 18:59 06:59 18:59 Intake Total 470 150 300 Output Total 750 300 300 Balance -280 -150 0 Intake: Oral 320 150 300 NG Tube Irrigate Amount 150 Output: Urine 750 300 300 Other: Estimated Void Large # Bowel Movements 1 Estimated Stool Amount Medium Medium Small # Voids 1 Assessment: Stable 72 y/o female s/p R TKA by Dr. Antunez on 08/11/2017. Plan: - WBC has been trending downward - DVT prophylaxis- ASA at home - Continue PT/ OT - Follow up with Dr. Antunez within 3-4 weeks - H&H - stable - D/C to PMRU
--- NOTE | 2017-08-16 11:46 | DS ---
DISCHARGE SUMMARY: DATE OF ADMISSION: 08/10/17 DATE OF DISCHARGE: 08/15/17 ADMITTING DIAGNOSIS: Right total knee arthroplasty. Secondary Diagnoses: Acute blood loss anemia, Overweight. Pneumonia PROVIDER: Richar Antunez MD * (DICTATED BY HERIBERTO GORMAN) CONSULTATIONS: PT, OT, hospitalist medicine. HISTORY OF PRESENT ILLNESS: Ms. Cooper is a 72-year-old female who was diagnosed with end-stage right knee osteoarthritis. She has failed conservative management and has elected to undergo a right total knee arthroplasty on 08/11/[address] Richar Antunez. HOSPITAL COURSE: The patient was admitted to [facility] on 08/11/17 and underwent a right total knee arthroplasty with no complications. The patient recovered briefly in the postanesthesia care unit and was then transferred to short stay surgical unit. On postop day 1, the patient had H and H 9.4 and 29 and white blood cell count 23.0. Dressing was clean, dry, and intact. She was neurovascularly intact. She could demonstrate dorsiflexion and plantar flexion with good strength. The patient was able to get out of bed with physical therapy. Pain was well controlled with oral pain medication. On postop day 2, the patient had a bout of tachycardia in the morning and the hospitalist was consulted. Pulmonary embolism was ruled out with CTA of the chest. Dressing was changed and incision was clean, dry, and intact. The patient's white blood cell count was 18.1 on postop day 2 and was placed on Levaquin. White blood cell count decreased to 14.3 on 08/14/17. She was accepted by the [facility] for short- term rehabilitation. She had been doing well with physical therapy and she was able to ambulate with the use of rolling walker and assistance. H and H has been stable for the visit. DISCHARGE CONDITION: Good. DISCHARGE MEDICATIONS: 1. Percocet 5/325 mg. 2. Aspirin 325 mg daily. HOME MEDICATIONS: 1. Tylenol 500 mg. 2. Brimonidine 1 drop. 3. Flonase nasal spray. 4. Flovent. 5. Fluoxetine 20 mg caps. 6. Irbesartan 150 mg. 7. Metformin 500 mg. 8. Simvastatin 10 mg. DISCHARGE INSTRUCTIONS: 1. Follow up with primary care physician with regards to the left thyroid nodule that was found by the hospitalist. 2. Weightbearing as tolerated. 3. Continue physical therapy and occupational therapy exercises as shown. 4. Wound care: Okay to shower. No bathing, swimming, submerging the wound. Use gentle soap, pat dry. Cover with antibiotic ointment, gauze, and an Octavio wrap. Call orthopedic office for increased drainage, redness, increased pain or fever. Go to the ER with shortness of breath or chest pain. 5. Diet: Regular diet. Increase fluids and fiber to prevent constipation. 6. Continue to use stool softeners. Call the office if no bowel motion within 48 hours. 7. Visiting home nurses to remove michael in 10 to 12 days and do wound checks. 8. Aspirin 325 mg daily for 3 days to prevent blood clots. 9. Pain control with Percocet 5/325 mg, take 1 to 2 tabs every 4 to 6 hours as needed for pain control, maximum of 10 tabs per day. Please note that Percocet contains Tylenol. Maximum daily dose of Tylenol is 4000 mg from all sources. 10. Antibiotics required prior to any dental work. 11. Follow up with Dr. Antunez within 4 to 6 weeks for your first postoperative appointment, sooner if you have any concerns, call for an appointment. HERIBERTO GORMAN [id number]/[facility] #: [id number] MTDD
== END 2017-08-15 10:43 | DRG 469 ==
LOC: AA 05:59 → SSU 12:56
PROVIDERS: ADMIT Orthopaedic Surgery; ATTEND Orthopaedic Surgery
PROC: 0SRC0J9 Replacement of Right Knee Joint with Synthetic Substitute, Cemented, Open Approach (ICD-10-PCS; principal; 2017-08-10 07:30)
DX: M17.0 Bilateral primary osteoarthritis of knee (principal); J18.9 Pneumonia, unspecified organism; D62 Acute posthemorrhagic anemia; J90 Pleural effusion, not elsewhere classified; E87.1 Hypo-osmolality and hyponatremia; Z68.41 Body mass index [BMI] 40.0-44.9, adult; J98.11 Atelectasis; I10 Essential (primary) hypertension; H40.9 Unspecified glaucoma; Z88.1 Allergy status to other antibiotic agents; Z88.5 Allergy status to narcotic agent; Z88.0 Allergy status to penicillin; E87.8 Other disorders of electrolyte and fluid balance, not elsewhere classified; E04.1 Nontoxic single thyroid nodule; E78.5 Hyperlipidemia, unspecified; F41.9 Anxiety disorder, unspecified; J45.909 Unspecified asthma, uncomplicated; Z82.49 Family history of ischemic heart disease and other diseases of the circulatory system; Z81.8 Family history of other mental and behavioral disorders; Z79.82 Long term (current) use of aspirin; Z88.8 Allergy status to other drugs, medicaments and biological substances; G47.33 Obstructive sleep apnea (adult) (pediatric); E66.01 Morbid (severe) obesity due to excess calories; F32.9 Major depressive disorder, single episode, unspecified; E11.39 Type 2 diabetes mellitus with other diabetic ophthalmic complication; Z90.89 Acquired absence of other organs; Z87.891 Personal history of nicotine dependence; M25.461 Effusion, right knee; R32 Unspecified urinary incontinence; Z82.61 Family history of arthritis; R06.02 Shortness of breath; Z91.81 History of falling; R50.9 Fever, unspecified; Z79.52 Long term (current) use of systemic steroids; R00.0 Tachycardia, unspecified; D72.829 Elevated white blood cell count, unspecified; Z79.84 Long term (current) use of oral hypoglycemic drugs
CPT/HCPCS: 36415; 71045; 71275; 80048; 81003; 81015; 83605; 85014; 85018; 85025; 85027; 85049; 87040; 87086; 88305; 88311; 93005; 94640; A9270-GY; C1776; G8978-GP-CJ; G8979-GP-CI; G8987-GO-CK; G8988-GO-CI; G8989-GO-CI; J1170; J1956; J2001; J2250; J2270; J2704; J3010; J3490; J8540; Q9967

== ENCOUNTER 2017-08-15 08:38 | Inpatient (IN) | payer MEDICARE, BC ==
[2017-08-15] MEDS ORDERED: Docusate CAP* 100 MG PO PRN (08:43)
[2017-08-15] MEDS ORDERED: Al Hydrox/Mg Hydrox/Simet LIQ* 30 ML UDC PO PRN (08:43)
[2017-08-15] MEDS ORDERED: Senna TAB PO PRN (08:43)
[2017-08-15] MEDS ORDERED: Dextrose 50% Syringe 50 ML* 25 GM/50 ML SYRINGE IV PUSH PRN (08:53)
--- OUTSIDE RECORDS SUMMARY | 2017-08-15 10:45 | XMS REPORT ---
:1945 External Reference #:[id number] Author Organization [facility] Address [address] [place] [address] [place] [address] Phone [phone] Care Team Providers Name Role Phone Tin Allison MD Primary Care Physician Unavailable Payers Type Date Identification Numbers Payment Provider Subscriber Medicare Primary Policy Number: [id number] Medicare Daniel Cooper PayID: [id number] [address] [place] [address] Medigap Part B Policy Number: [id number] BS Facets Daniel Cooper PayID: [id number] [address] [address] [place] [address] Problems Description No Information Family History Date [...] Active 5mg Unknown 000 Avapro Active Tablets 75mg 1 by Unknown 000 mouth every day [...] Test Date Test Result H/L Range Note Urine Culture And 07/28/2017 Urine Culture SEE RESULT BELOW 1 Sensitivities Urinalysis Profile 07/28/2017 Urine Color Yellow Urine Appearance Clear Urine Specific [place] 1.021 1.010-1.030 Urine pH 5.0 5-9 Urine Urobilinogen Negative Negative Urine Ketones Negative Negative Urine Protein Negative Negative Urine Leukocytes Negative Negative Urine Blood 1+ Negative Urine Nitrite Negative Negative Urine Bilirubin Negative Negative Urine Glucose Negative Negative Urine White Blood Cell Trace(0-5/hpf) Absent Urine Red Blood Cell 2+(6-10/hpf) Absent Urine Bacteria Absent Absent Urine Squamous Epithelial Cell Present Absent Laboratory test finding 07/28/2017 Creatine Kinase(CK) 62 U/L 10-223 TSH (Thyroid Stim Horm) 0.84 mcIU/mL 0.34-5.60 Hemoglobin A1c (Glyco HGB) 8.8 % High 4.0-5.6 2 Lipid Profile (Trig/Chol/HDL) 07/28/2017 Triglycerides 129 mg/dL 3 Cholesterol 161 mg/dL 4 HDL Cholesterol 47.7 mg/dL 5 LDL Cholesterol 88 mg/dL 6 Type & Screen 07/28/2017 Patient Blood Type B Positive Antibody Screen NEGATIVE Comp Metabolic Panel 07/28/2017 Sodium 139 mmol/L 139-145 Potassium 4.3 mmol/L 3.5-5.0 Chloride 102 mmol/L 101-111 Co2 Carbon Dioxide 27 mmol/L 22-32 Anion Gap 10 mmol/L 2-11 Glucose 247 mg/dL High 70-100 Blood Urea Nitrogen 11 mg/dL 6-24 Creatinine 0.51 mg/dL 0.51-0.95 BUN/Creatinine Ratio 21.6 High 8-20 Calcium 8.4 mg/dL Low 8.6-10.3 Total Protein 6.5 g/dL 6.4-8.9 Albumin 3.5 g/dL 3.2-5.2 Globulin 3.0 g/dL 2-4 Albumin/Globulin Ratio 1.2 1-3 Total Bilirubin 0.30 mg/dL 0.2-1.0 Alkaline Phosphatase 99 U/L 34-104 Alt 13 U/L 7-52 Ast 17 U/L 13-39 Egfr Non- 117.9 >60 Egfr 151.6 >60 7 Laboratory test finding 07/28/2017 Partial Thrombo Time 30.5 seconds 26.0 -36.3 PTT Inr/Protime 07/28/2017 Inr 0.87 0.77-1.02 CBC Auto Diff 07/28/2017 White Blood Count 14.8 10^3/uL High 3.5-10.8 Red Blood Count 4.40 10^6/uL 4.0-5.4 Hemoglobin 12.2 g/dL 12.0-16.0 Hematocrit 38 % 35-47 Mean Corpuscular Volume 86 fL 80-97 Mean Corpuscular Hemoglobin 28 pg 27-31 Mean Corpuscular HGB Conc 32 g/dL 31-36 Red Cell Distribution Width 15 % 10.5-15 Platelet Count 285 10^3/uL 150-450 Mean Platelet Volume 7.3 um3 Low 7.4-10.4 Abs Neutrophils 13.0 10^3/uL High 1.5-7.7 Abs Lymphocytes 1.4 10^3/uL 1.0-4.8 Abs Monocytes 0.3 10^3/uL 0-0.8 Abs Eosinophils 0.1 10^3/uL 0-0.6 Abs Basophils 0 10^3/uL 0-0.2 Abs Nucleated RBC 0 10^3/uL Granulocyte % 87.7 % High 38-83 Lymphocyte % 9.6 % Low 25-47 Monocyte % 1.9 % 0-7 Eosinophil % 0.6 % 0-6 Basophil % 0.2 % 0-2 Nucleated Red Blood Cells % 0 Laboratory test 03/12/2017 Point of Care 235 mg/dL High 70-100 8 finding Glucose Laboratory test 03/12/2017 Surgical Pathology SEE RESULT BELOW 9 finding Laboratory test 03/12/2017 Point of Care 220 mg/dL High 70-100 10 finding Glucose 1 SEE RESULT BELOW Name: COOPERDANIEL M : [address]: Richar Antunez MD Acct: [id number] Unit: [id number] AGE: 72 Location: [facility] Re07/28/17 SEX: F Status: REG REF SPEC: [id number] TRIXIE: 07/28/17-[address] [facility] [address]: Richar Antunez MD REQ: [id number] RECD: 07/28/17-1228 STATUS: COMP CRISTA DR: Tin Allison MD _ SOURCE: URINE SPDESC: ORDERED: Urine Culture Procedure Result Reported Site Urine Culture Final 07/29/17- 1253 ML No growth of clinically significant organisms * ML - Main Lab . END OF REPORT DEPARTMENT OF PATHOLOGY, [address] [place] [address] Sergei Rose M.D. Director [facility] # [id number] 2 Therapeutic target for the treatment of diabetes mellitus patients is <7% HBA1C, and in selective patients <6.0%. Please refer to [place] Diabetes Association diabetic care guidelines for further information. 3 Desirable: <150 Borderline High: 150-199 High: 200-499 Very High: >500 4 Desirable: <200 Borderline High: 200-239 High: >239 5 Low: <40 Desirable: 40-60 High: >60 6 Desirable: <100 Near Optimal: 100-129 Borderline High: 130-159 High: 160-189 Very High: >189 7 Because ethnic data is not always readily available, this report includes an eGFR for both -Americans and non- Americans. The National Kidney Disease Education Program (NKDEP) does not endorse the use of the MDRD equation for patients that are not between the ages of 18 and 70, are , have extremes of body size, muscle mass, or nutritional status, or are non- or non-. According to the National Kidney Foundation, irrespective of diagnosis, the stage of the disease is based on the level of kidney function: Stage Description GFR(mL/min/1.73 m(2)) 1 Kidney damage with normal or decreased GFR 90 2 Kidney damage with mild decrease in GFR 60-89 3 Moderate decrease in GFR 30-59 4 Severe decrease in GFR 15-29 5 Kidney failure <15 (or dialysis) 8 Carry All Driver: [id number] SEE RESULT BELOW Name: DANIEL COOPER : [address]: Mahamed Ennis MD Acct: [id number] Unit: [id number] AGE: 71 Location: [place] Re03/12/17 SEX: F Status: [facility] SPEC: [id number] TRIXIE: 03/12/17-[address] [facility] [address]: Mahamed Ennis MD REQ: [id number] RECD: 03/12/17-1229 STATUS: SOUT _ ORDERED: LEVEL 4 FINAL [...] performed at Main Lab DEPARTMENT OF PATHOLOGY, [address] [place] [address] Sergei Rose M.D. Director [facility] # [id number] 10 Carry All Driver: [id number] Procedures Date CPT Code Description Status 07/28/201782819 Inject/Drain Joint/Bursa Major W/O US Completed 06/07/201728955 Inject/Drain Joint/Bursa Major W/O US Completed 03/03/201776322 Inject/Drain Joint/Bursa Major W/O US Completed 01/29/2014 94708 Rad Shoulder Comp, Min. 2 Views Completed 01/08/2014 49127 Rad Shoulder Comp, Min. 2 Views Completed 01/08/2014 90327 Closed TX Of Greater Humeral Tuberosity FX;W/O Completed Manipulation 01/08/2014 11198 Closed trtmt prox humeral fx Completed Encounters Type Date Location Provider CPT E/M Dx Office Visit 06/07/2017 9:45a [facility] M.D. 51353 M17.11 [facility] Office Visit 05/10/2017 10:45a [facility] M.D. 54686 M17.11 [facility] Office Visit 03/24/2017 10:30a [facility] M.D. 26626 M17.11 C.M.A. M22.41 Office Visit 03/03/2017 10:45a [facility] M.D. 69275 S76.111A [place] M17.11 Office Visit 02/01/2017 9:45a [facility] M.D. 72669 S76.111A [place] Office Visit 09/16/2016 9:30a [facility] M.D. 83981 M17.11 [place] Office Visit 10/03/2014 1:30p [facility] M.D. 49808 836.0 C.Duran.Mariama 715.96 Plan of Care Future Appointment(s):09/13/2017 9:45 am - Richar Antunez M.D. at [facility]
[2017-08-15] MEDS: Aspirin TAB* 325 MG PO SCH (10:51)
[2017-08-15] MEDS: BRIMONIDINE P 0.1% BOTH EYES SCH ×2 (10:51→21:38)
[2017-08-15] MEDS: Ferrous Sulfate TAB* 325 MG PO SCH ×2 (10:52→21:36)
[2017-08-15] MEDS: Levofloxacin 500 MG IVPREMIX(* 500 MG/100 ML BAG IVPB SCH (10:54)
[2017-08-15] MEDS: Fluticasone NASAL SPRAY 50MCG* 16 gm SPRAY BTL BOTH NARES SCH (10:54)
[2017-08-15] MEDS: Losartan TAB* 25 MG PO SCH (10:54)
[2017-08-15] MEDS: FLUoxetine CAP* 20 MG PO SCH (10:54)
[2017-08-15] MEDS: Vitamin THERAPEUTIC TAB PO SCH (10:54)
[2017-08-15] MEDS: Insulin LISPRO* 1 UNITS UNIT SUBCUT SCH ×5 (13:08→21:36)
[2017-08-15] MEDS: Acetaminophen TAB* 325 MG PO PRN (13:09)
--- NOTE | 2017-08-15 14:21 | HP ---
CC: Dr. Allison; Dr. Antunez REHABILITATION ADMISSION NOTE: DATE OF ADMISSION: 08/15/17 PRIMARY CARE PROVIDER: Dr. Allison. ORTHOPEDIC SURGEON: Dr. Antunez. REASON FOR ADMISSION: Right total knee replacement secondary to osteoarthritis. 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 Antunez's service for elective right total knee replacement secondary to end-stage osteoarthritis. Postoperatively, she was put on full dose aspirin 325 mg daily for DVT prophylaxis. Postoperatively , she has had issues with tachycardia and was also noted to have increased white blood cells to 23,000 with some shortness of breath. Chest x-ray was negative. CT angiogram was a limited study, but did not show any pulmonary embolism. She did have a left thyroid nodule that should probably be followed up as an outpatient with ultrasound. The hospitalist service thought that she may be was getting early consolidation and effusion in the left lower lobe and she was started empirically on IV Levaquin. She is currently on day 3 out of 7 of 500 mg daily and her white blood cell count was last noted yesterday to be 14 ,300. She had one episode of hypertension with systolic above 180, as well as a heart rate that went above 120s. She was found to have sinus tachycardia. She got IV Lopressor for both of those episodes. Her heart rates remained in the 100s range and she has been asymptomatic without any chest pain, shortness of breath, lightheadedness or dizziness. She has been able to void. She has had some difficulty with her glucose control that she dates back to getting a steroid injection in her knee. Prior to admission, she was independent with ADLs and IADLs, and walking without any assistive device. With occupational therapy, she has required a minimum amount of assistance for lower body dressing , bathing, and contact guard assistance for toileting. With physical therapy, she requires a moderate amount of assistance for bed mobility and contact guard assistance for transferring and ambulating using a rolling walker up to 10 feet. PAST MEDICAL HISTORY: 1. Type 2 diabetes mellitus. 2. Obesity. 3. Hypertension. 4. Hyperlipidemia. 5. Probable obstructive sleep apnea. 6. Depression. 7. Status post , tonsillectomy, and appendectomy. 8. Status post nasal polyp removal. 9. Glaucoma. 10. Seasonal allergies. MEDICATIONS: 1. Metformin, today is being increased from 500 mg b.i.d. to 750 mg b.i.d. 2. Alphagan ophthalmic solution 0.1% one drop to both eyes b.i.d. 3. Avapro 75 mg daily that has been substituted with Cozaar 25 mg daily. 4. Simvastatin 20 mg daily that has been substituted with Lipitor 5 mg daily. 5. Fluoxetine 20 mg daily. 6. Tylenol 650 mg q.4 hours p.r.n. 7. Flonase 50 mcg 1 spray to each nostril daily. 8. Aspirin 325 mg daily for DVT prophylaxis per Dr. Antunez. 9. Colace 100 mg b.i.d. p.r.n. 10. Ferrous sulfate 325 mg b.i.d. 11. Levaquin 500 mg IV daily. 12. Multivitamin daily. 13. Percocet 1 to 2 tabs q.4 hours p.r.n. pain. 14. Ibuprofen 400 mg q.6 hours p.r.n. pain. 15. Sliding scale insulin. ALLERGIES: TAPE, CEPHALOSPORINS, CODEINE, PENICILLIN, TETRACYCLINE, DEMEROL, NOVOCAINE, and HIBICLENS. FAMILY HISTORY: Mother: Congestive heart failure and rheumatoid arthritis. Father: Hypertension, myocardial infarction. SOCIAL HISTORY: She lives alone. 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 No smoking or alcohol. Her home has 2 levels. There are 7 steps to enter and a full flight in between levels. She enjoys swimming and her book club. She stays very active. REVIEW OF SYSTEMS: See history of present illness and past medical history. The remainder of 13-system review was completed. No other significant findings except 2 weeks ago she fell asleep while sitting on the toilet and fell over. She was seen in the emergency room and had no fractures, but she does have some bruising including around her right eye. PHYSICAL EXAMINATION GENERAL: Well developed, well nourished, overweight. Mental Status: Alert and oriented x3. VITAL SIGNS: Temperature 98.3, heart rate 105, respirations 16, oxygenation 97 % on room air, blood pressure 129/45. HEENT: Normocephalic, atraumatic. Oropharynx is clear. LUNGS: Clear to auscultation bilaterally. HEART: Regular rate and rhythm. ABDOMEN: Active bowel sounds. Soft, nontender, nondistended. EXTREMITIES: No clubbing or cyanosis. There is some edema around her right knee, as expected. MUSCULOSKELETAL: She has functional range of motion of all of her major joints with limited testing of her right hip and knee secondary to her surgery. NEUROLOGIC: Cranial nerves II through XII are intact. Normal sensation x4. Motor testing shows 5/5 strength in bilateral upper and lower extremities with limited testing of the right hip and knee secondary to her surgery. SKIN: There is some erythema at the distal portion of her incision. There is scant bloody drainage on the dressing. LABORATORY DATA: Labs today, hemoglobin 8.4, hematocrit 24, platelets 301. IMPRESSION: A 72-year-old woman, status post right total knee replacement secondary to end-stage osteoarthritis. She will be admitted to [facility] so she can return to living independently. PLAN: 1. Status post right total knee replacement. Continue weightbearing as tolerated, precautions. Pain medicines as appropriate. She feels that she does not tolerate Percocet terribly well and so probably keep this to 1 pill at a time and she continues supplementing with Tylenol and ibuprofen p.r.n. She is to follow up with Dr. Antunez in 3 to 4 weeks, but her sutures will need to be removed within 2 weeks postop. 2. DVT prophylaxis. Continue full dose aspirin. SREE hose and ambulate. 3. Leukocytosis with possibly some mild cellulitis at the distal incision. She is on Levaquin 500 mg daily, day 3 out of 7, with a decreasing white blood cell count. Continue to monitor her knee. She will have routine labs tomorrow. 4. Sinus tachycardia. Unclear why this has developed. If it presents any issues, consider using a low dose beta-chris. When I was just in the room listening to her, her heart rate was close to the 80 range. 5. Poorly-controlled diabetes mellitus type 2. Increase her metformin from 500 mg daily to 750 mg daily. Continue with sliding scale insulin. 6. Hypertension. Continue Cozaar, substitute for Avapro. 7. Thyroid nodule seen on prior CT. f/u with PCP. 8. Impaired mobility. She will be seen by Physical Therapy for bed mobility, transfer, gait, and stair training. 9. Impaired self-care. She will be seen by Occupational Therapy for ADL and IADL training and equipment evaluation. 10. Advance directives. She has a living will. Her son, Dayton Cooper, is her healthcare proxy if she cannot make decisions for herself. She is a full code. ESTIMATED LENGTH OF STAY: Approximately 7 days, then return to home. [id number]/[facility] #: [id number] RENALDO
[2017-08-15] MEDS: Ibuprofen TAB* 400 MG PO PRN (16:09)
[2017-08-15] MEDS ORDERED: metFORMIN* 500 MG TAB PO SCH (17:00)
[2017-08-15] MEDS: Atorvastatin* 10 MG TAB PO SCH (17:16)
[2017-08-15] MEDS: metFORMIN* 500 MG TAB PO SCH (17:17)
[2017-08-15] MEDS ORDERED: Mometasone 220 MCG MDI INH SCH (18:00)
[2017-08-15] MEDS: oxyCODONE/Acetamin 5/325 MG* TAB PO PRN (21:36)
[2017-08-16] MEDS: Ibuprofen TAB* 400 MG PO PRN ×2 (00:54→08:57)
[2017-08-16] MEDS: oxyCODONE/Acetamin 5/325 MG* TAB PO PRN ×3 (04:12→18:38)
[2017-08-16 05:58] LABS: ABS Basophils 0.1 10^3/ul (0-0.2); ABS Eosinophils 0.3 10^3/ul (0-0.6); ABS Lymphocytes 1.8 10^3/ul (1.0-4.8); ABS Monocytes 0.9 10^3/ul (0-0.8); ABS Neutrophils 8.1 10^3/ul (1.5-7.7); ABS Nucleated RBC 0 10^3/ul; Hematocrit 26 % (35-47); Hemoglobin 8.3 g/dl (12.0-16.0); Lymphocyte % 16.2 % (25-47); Mean Corpuscular HGB Conc 32 g/dl (31-36); Mean Corpuscular Hemoglobin 28 pg (27-31); Mean Corpuscular Volume 87 fL (80-97); Mean Platelet Volume 6.4 um3 (7.4-10.4); Nucleated Red Blood Cells % 0.1; Platelet Count 338 10^3/ul (150-450); Red Blood Count 2.95 10^6/ul (4.00-5.40); Red Cell Distribution Width 16 % (10.5-15); White Blood Count 11.2 10^3/ul (3.5-10.8)
[2017-08-16 06:14] LABS: EGFR Non-African American 151.6 (>60)
[2017-08-16] MEDS: metFORMIN* 500 MG TAB PO SCH ×2 (08:51→17:14)
[2017-08-16] MEDS: BRIMONIDINE P 0.1% BOTH EYES SCH ×2 (08:52→21:30)
[2017-08-16] MEDS: Ferrous Sulfate TAB* 325 MG PO SCH ×2 (08:52→21:30)
[2017-08-16] MEDS: Aspirin TAB* 325 MG PO SCH (08:52)
[2017-08-16] MEDS: Fluticasone NASAL SPRAY 50MCG* 16 gm SPRAY BTL BOTH NARES SCH ×2 (08:53→09:06)
[2017-08-16] MEDS: Losartan TAB* 25 MG PO SCH (08:53)
[2017-08-16] MEDS: FLUoxetine CAP* 20 MG PO SCH (08:53)
[2017-08-16] MEDS: Vitamin THERAPEUTIC TAB PO SCH (08:55)
[2017-08-16] MEDS: Insulin LISPRO* 1 UNITS UNIT SUBCUT SCH ×4 (09:49→21:31)
[2017-08-16] MEDS: Levofloxacin 500 MG IVPREMIX(* 500 MG/100 ML BAG IVPB SCH (11:20)
[2017-08-16] MEDS: Atorvastatin* 10 MG TAB PO SCH (17:13)
--- NOTE | 2017-08-16 19:28 | PN ---
Progress Note Date of Service: 08/16/17 Note: DANIEL BARNES was visited. Therapy notes read and reviewed. She is feeling pretty good and moving fairly well. Otherwise no complaints. Current Medications: Active Medications Generic Name Dose Route Start Last Admin Trade Name Freq PRN Reason Stop Dose Admin Acetaminophen 650 mg 08/15/17 08:43 08/15/17 13:09 Tylenol Tab* PO 650 mg Q4H PRN Administration FEVER > 101 Al Hydrox/Mg Hydrox/Simethicone 30 ml 08/15/17 08:43 Maalox Plus* PO Q6H PRN INDIGESTION Aspirin 325 mg 08/15/17 09:00 08/16/17 08:52 Aspirin Tab* PO 325 mg DAILY RAFAEL Administration Atorvastatin Calcium 5 mg 08/15/17 17:00 08/16/17 17:13 Lipitor* PO 5 mg 1700 RAFAEL Administration Brimonidine Tartrate 1 drop 08/15/17 09:00 08/16/17 08:52 Alphagan P 0.1% (Nf) BOTH EYES 1 drop BID RAFAEL Administration Dextrose 12.5 gm 08/15/17 08:53 D50w Syringe 50 Ml* IV PUSH .FOR FS < 60 - SS PRN FS < 60 Docusate Sodium 100 mg 08/15/17 08:43 Colace Cap* PO BID PRN CONSTIPATION Ferrous Sulfate 325 mg 08/15/17 09:00 08/16/17 08:52 Ferrous Sulfate Tab* PO 325 mg BID RAFAEL Administration Fluoxetine HCl 20 mg 08/15/17 09:00 08/16/17 08:53 Prozac Cap* PO 20 mg DAILY RAFAEL Administration Fluticasone Propionate 1 spray 08/15/17 09:00 08/16/17 09:06 Flonase Nasal [place] 50mcg* BOTH NARES Not Given DAILY RAFAEL Levofloxacin/Dextrose 500 mg in 100 mls @ 100 mls/hr 08/15/17 09:00 08/16/17 11:20 Levaquin 500 Mg Ivpremix(*) IVPB 100 mls/hr Q24H RAFAEL Administration Ibuprofen 400 mg 08/15/17 08:56 08/16/17 08:57 Motrin Tab* PO 400 mg Q6H PRN Administration PAIN Insulin Human Lispro 0 units 08/15/17 16:30 08/16/17 17:15 Humalog* SUBCUT 2 units ACHS RAFAEL Administration Protocol Losartan Potassium 25 mg 08/15/17 09:00 08/16/17 08:53 Cozaar Tab* PO 25 mg DAILY RAFAEL Administration Metformin HCl 750 mg 08/15/17 17:00 08/16/17 17:14 Glucophage* PO 750 mg 0800,1700 RAFAEL Administration Multivitamins 1 tab 08/15/17 09:00 08/16/17 08:55 Theragran Tab* PO 1 tab DAILY RAFAEL Administration Oxycodone/Acetaminophen 1 tab 08/15/17 08:57 08/16/17 18:38 Percocet 5/325 Tab* PO 1 tab Q4H PRN Administration PAIN Senna 2 tab 08/15/17 08:43 Senokot Tab* PO BEDTIME PRN CONSTIPATION Vital Signs: Vital Signs Temp Pulse Resp BP Pulse Ox 97.5 F 105 18 139/51 98 08/16/17 16:10 08/16/17 16:10 08/16/17 18:38 08/16/17 16:10 08/16/17 16:10 Lab Results: Laboratory Results - last 24 hr 08/15/17 08/16/17 08/16/17 20:19 05:22 05:22 WBC 11.2 H RBC 2.95 L Hgb 8.3 L Hct 26 L MCV 87 MCH 28 MCHC 32 RDW 16 H Plt Count 338 MPV 6.4 L Neut % (Auto) 72.3 Lymph % (Auto) 16.2 L Gates % (Auto) 7.9 H Eos % (Auto) 3.0 Baso % (Auto) 0.6 Absolute Neuts (auto) 8.1 H Absolute Lymphs (auto) 1.8 Absolute Monos (auto) 0.9 H Absolute Eos (auto) 0.3 Absolute Basos (auto) 0.1 Absolute Nucleated RBC 0 Nucleated RBC % 0.1 Sodium 140 Potassium 3.8 Chloride 102 Carbon Dioxide 30 Anion Gap 8 BUN 9 Creatinine 0.41 L Est GFR ( Amer) 195.0 Est GFR (Non-Af Amer) 151.6 BUN/Creatinine Ratio 22.0 H Glucose 181 H POC Glucose (mg/dL) 300 H Calcium 9.0 Total Bilirubin 0.50 AST 21 ALT 17 Alkaline Phosphatase 96 Total Protein 6.6 Albumin 2.8 L Globulin 3.8 Albumin/Globulin Ratio 0.7 L 08/16/17 08/16/17 08/16/17 08:51 12:16 16:12 WBC RBC Hgb Hct MCV MCH MCHC RDW Plt Count MPV Neut % (Auto) Lymph % (Auto) Gates % (Auto) Eos % (Auto) Baso % (Auto) Absolute Neuts (auto) Absolute Lymphs (auto) Absolute Monos (auto) Absolute Eos (auto) Absolute Basos (auto) Absolute Nucleated RBC Nucleated RBC % Sodium Potassium Chloride Carbon Dioxide Anion Gap BUN Creatinine Est GFR ( Amer) Est GFR (Non-Af Amer) BUN/Creatinine Ratio Glucose POC Glucose (mg/dL) 272 H 255 H 142 H Calcium Total Bilirubin AST ALT Alkaline Phosphatase Total Protein Albumin Globulin Albumin/Globulin Ratio Exam: LUNGS: Clear HEART: reg rhythm ABDOMEN: Soft, +BS EXTREMITIES: Wound C/D/I. PPI. Some eccymoses at right calf NEUROLOGIC: A & O. Exam non-focal. Assessment/Plan: 1. Right TKA: PT/OT 2. Diabetes: Metformin. BS a little high 3. Increased WBC with possible Pneumonia: Levaquin IV day 06/05 4. Depresssion: Fluoxetine 5. DVT Prophylaxis: ASA/TEDS 6. HTN: Cozaar 7. Advanced Directives: Full code. Son is HCP. 08/16/17 19:28
[2017-08-17] MEDS: Ibuprofen TAB* 400 MG PO PRN ×3 (00:20→17:19)
[2017-08-17] MEDS: oxyCODONE/Acetamin 5/325 MG* TAB PO PRN ×4 (01:36→23:47)
[2017-08-17] MEDS: Insulin LISPRO* 1 UNITS UNIT SUBCUT SCH ×4 (08:15→20:51)
[2017-08-17] MEDS: Ferrous Sulfate TAB* 325 MG PO SCH ×2 (08:16→20:49)
[2017-08-17] MEDS: BRIMONIDINE P 0.1% BOTH EYES SCH ×2 (08:16→20:50)
[2017-08-17] MEDS: metFORMIN* 500 MG TAB PO SCH ×2 (08:16→21:36)
[2017-08-17] MEDS: Aspirin TAB* 325 MG PO SCH (08:16)
[2017-08-17] MEDS: Vitamin THERAPEUTIC TAB PO SCH (08:17)
[2017-08-17] MEDS: Fluticasone NASAL SPRAY 50MCG* 16 gm SPRAY BTL BOTH NARES SCH (08:17)
[2017-08-17] MEDS: FLUoxetine CAP* 20 MG PO SCH (08:17)
[2017-08-17] MEDS: Losartan TAB* 25 MG PO SCH (08:17)
[2017-08-17] MEDS ORDERED: Levofloxacin 500 MG IVPREMIX(* 500 MG/100 ML BAG IVPB SCH (11:00)
[2017-08-17] MEDS: Levofloxacin 500 MG IVPREMIX(* 500 MG/100 ML BAG IVPB SCH (12:00)
--- NOTE | 2017-08-17 12:22 | PMRUTEAM ---
PMRU: Team Meeting Current Status: Nursing: Current Status Skin Deviations [Right second Bruise toe] Skin Deviations [Right pinkie Bruise toe nail] Skin Deviations [Right Knee] Incision Skin Deviation Description [ cryo unit and ekaterina wrap in place Right Knee] Bladder Current Status Incontinent of urine at times. Wears a brief. Lowers pants/brief without assistance Bowel Current Status Continent of bowel. Lowers pants/brief without assistance Nutrition Current Status Adequete. 75%-100% of all meals Medication Current Status Asks questions regarding medications, knowledgable about medication schedule. Physical Therapy: Current Status Bed Mobility Assistance Min Assist Transfer Moblility Assistance Contact Guard Assist Transfer/Bed Mobility Rolling Walker Recommended Devices Ambulation Assistance Contact Guard Assist Ambulation Assistive Devices Rolling Walker Number of Feet Patient 100 Ambulated Stairs Assistance Contact Guard Assist,Min Assist Stairs Recommended Devices Two Rails Number of Stairs 2x2 Objective Comments patient ascends/descends therapy stairs x 2 with CGA - min assist. needs increased assist at second attempt. will need to complete 12 stairs independently to use upstairs shower and bedroom on return to home. Occupational Therapy: Current Status Upper Body Dressing Supervision Lower Body Dressing Min Assist Bathing Min Assist Toileting Contact Guard Assist Toilet Transfer Contact Guard Assist Shower Transfer Contact Guard Assist Eating Independent Rec Therapy: Current Status Summary of Assessment and Pt. was very involved in conversation - social, Clinical Impression cooperative and engaged. Pt. identified with many interests and active involvement in them prior to admission. Pt. states she likes to stay busy and enjoys her life. Pt. was open to continued leisure visits while on the unit. Treatment Goals Pt. will engage in leisure activities while on the unit. Treatment Plan Provide RT services and encourage involvement. Social Work: Current Status Discharge Plan return home with home care svs and support from friends Potential for Family Training pt's friend is supportive and involved Anticipated Discharge Home Destination Discharge With home care svs and support from friends Nutrition: Current Status Monitoring Pt admitted to [facility] s/p R total knee arthroplasty 08/10/17. Pt eating well on consistent carb diet. Pt with another staff member when approached today , so not able to interview or provide instruction per consult request. No evidence difficulty chewing/swallowing on nursing assessments. Skin intact, no signs of breakdown per nursing reports. Noted BG up to 300 yesterday, and 181 fasting today, so not optimal. No A1c level noted in [facility] records; recommend checking. 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 Will follow for any education needs/questions. Goals: Physical Therapy: Initial Goals Bed Mobility Assistance Independent Transfer Mobility Assistance Independent Transfer/Bed Mobility Rolling Walker Recommended Devices Ambulation Independent Ambulation Recommended Devices Rolling Walker Ambulation Distance 300 Wheelchair Propulsion Ability Independent Stairs Assistance Independent Stair Recommended Devices Two Rails Number of Stairs 12 Physical Therapy: Updated Goals Transfer/Bed Mobility Rolling Walker Recommended Devices Occupational Therapy: Initial Goals Goals to be Completed in (Days 5 days ) Upper Body Bathing Routine Modified Independent with Lower Body Bathing Routine Modified Independent with Upper Body Dressing Routine Independent Lower Body Dressing Routine Modified Independent with Toilet Hygeine and Clothing Modified Independent with Management Routine Toilet Transfer Routine Modified Independent with Step-In Shower Transfer Modified Independent with Routine Functional Transfers for ADL Modified Independent with Grooming Routine Independent Feeding Routine Independent Nursing: Goals Bladder Goal Independent. Continent. Bowel Goal Independent. Continent of bowel. Nutrition Goal Good. 100% of all meals Medication Goal Independent with medications Nutrition: Goals Intervention Goals 1. Intake will remain adequate to promote healing without contributing to excess wt gain 2. Glycemic control will improve with adherence to meds and diet 3. Any education needs will be addressed prior to d/c Social Work: Goals Discharge Plan return home with home care svs and support from friends Potential for Family Training pt's friend is supportive and involved Anticipated Discharge Home Destination Discharge With home care svs and support from friends Care Plan: Care Plan ADL's - Improve/Maintain Start: 08/16/17 15:52 Freq: QSHIFT Status: Active Target: Protocol: Activity Type Activity Date Activity User E-Sign Co-Sign Detail Recorded Client Recorded Date Recorded By Document 08/16/17 15:53 [id number] [id number] 08/16/17 15:53 [id number] 08/16/17 15:53 PMRU Outcome: ADL's/ADL Transfers Orders/Interventions Occupational Therapy Evaluation & Treatment Device Yes Patient to receive OT 5x/wk for 60-120 Therex min/day Self Care Management Group Therapy Neuromuscular ReEducation UE/LE ADL's with Assist Yes ADL Transfers with Assist Yes Toileting: Transfers,Clothing Management Yes ,Hygeine w/Assist Light Kitchen/Laundry w/Assist Yes Progression Toward Outcome/Goals Progressing Cardiovascular- Improve/Maintain Start: 08/16/17 15:52 Freq: QSHIFT Status: Active Target: Protocol: Activity Type Activity Date Activity User E-Sign Co-Sign Detail Recorded Client Recorded Date Recorded By Document 08/17/17 03:56 [id number] 08/17/17 03:56 [id number] 08/17/17 03:56 PMRU Outcome: Cardiovascular Vital Signs q Shift for 48hrs Then BID Yes Daily Weight Ordered No Current Cardiovascular Outcome/Goal Maintain/ Achieve Baseline HR, BP , Perfusion Improve HR Within Prescribed Parameters Progression Toward Outcome/Goal Progressing DVT Prophylaxis- Improve/Maintain Start: 08/17/17 03:56 Freq: QSHIFT Status: Active Target: Protocol: Activity Type Activity Date Activity User E-Sign Co-Sign Detail Recorded Client Recorded Date Recorded By Document 08/17/17 03:57 [id number] 08/17/17 03:57 [id number] 08/17/17 03:57 PMRU Outcome: DVT Prophylaxis Outcome/Goals Remains Free of DVT TEDS Stockings on Every AM, Off at HS Discharge Planning - Improve/Maintain Start: 08/17/17 03:56 Freq: QSHIFT Status: Active Target: Protocol: Activity Type Activity Date Activity User E-Sign Co-Sign Detail Recorded Client Recorded Date Recorded By Document 08/17/17 03:56 [id number] 08/17/17 03:57 [id number] 08/17/17 03:56 PMRU Outcome: Discharge Planning Update Patient Family No Outcome/Goals Demonstrates Understanding of Discharge Plan Metabolic Status- Improve/Maintain Start: 08/17/17 03:56 Freq: QSHIFT Status: Active Target: Protocol: Activity Type Activity Date Activity User E-Sign Co-Sign Detail Recorded Client Recorded Date Recorded By Document 08/17/17 03:57 [id number] [id number] 08/17/17 03:57 [id number] 08/17/17 03:57 PMRU Outcome: Metabolic Status Have Fingersticks Been Ordered Yes Fingerstick Order Frequency AC & HS Outcome/Goals Maintain/ Improve Metabolic Status Demonstrate Knowledge of Prevention/ Treatment of Metabolic Imbalances Neurological- Improve/Maintain Start: 08/17/17 03:56 Freq: QSHIFT Status: Active Target: Protocol: Activity Type Activity Date Activity User E-Sign Co-Sign Detail Recorded Client Recorded Date Recorded By Document 08/17/17 03:57 [id number] 08/17/17 03:57 [id number] 08/17/17 03:57 PMRU Outcome: Neurological Weakness/Aphasia Weakness Right Side Outcome/Goals Maintain/ Achieve Baseline Neurological Status Maintain/ Improve Strength/ROM Pain/Comfort- Improve/Maintain Start: 08/17/17 03:56 Freq: QSHIFT Status: Active Target: Protocol: Activity Type Activity Date Activity User E-Sign Co-Sign Detail Recorded Client Recorded Date Recorded By Document 08/17/17 03:57 [id number] 08/17/17 03:57 [id number] 08/17/17 03:57 PMRU Outcome: Pain/Comfort Outcome/Goals Demonstrates Knowledge and Use of Available Comfort Measures Achieves Acceptable Comfort/Pain Level as Determined by Patient/Condit Maintain Comfort Level Allowing Patient to Fully Participate in Rehab Outcome/Goals Met Comment pain medication given Skin- Improve/Maintain Start: 08/17/17 03:56 Freq: QSHIFT Status: Active Target: Protocol: Activity Type Activity Date Activity User E-Sign Co-Sign Detail Recorded Client Recorded Date Recorded By Document 08/17/17 03:57 [id number] 08/17/17 03:57 [id number] 08/17/17 03:57 PMRU Outcome: Skin Skin Orders Dressing Change Outcome/Goals Maintain/ Improve Skin Intergrity Surgical Incisions Healing Medicine Note: Length of Stay: 3 days Anticipated Discharge Destination: Home Tentative Discharge Date: 08/20/17 Discharged to: Home
[2017-08-17] MEDS: Acetaminophen TAB* 325 MG PO PRN ×2 (13:24→20:55)
[2017-08-17] MEDS: Levofloxacin TAB* 500 MG PO SCH (17:12)
--- NOTE | 2017-08-17 17:13 | PN ---
Progress Note Date of Service: 08/17/17 Note: DANIEL BARNES was visited. Therapy notes read and reviewed. Blood sugars still too high. She is now on Metformin, 750 BID. Will change to 500 TID. Her IV infiltrated, so will change Levaquin to PO. She was discussed in interdisciplinary team rounds. Current Medications: Active Medications Generic Name Dose Route Start Last Admin Trade Name Freq PRN Reason Stop Dose Admin Acetaminophen 650 mg 08/15/17 08:43 08/17/17 13:24 Tylenol Tab* PO 650 mg Q4H PRN Administration FEVER > 101 Al Hydrox/Mg Hydrox/Simethicone 30 ml 08/15/17 08:43 Maalox Plus* PO Q6H PRN INDIGESTION Aspirin 325 mg 08/15/17 09:00 08/17/17 08:16 Aspirin Tab* PO 325 mg DAILY RAFAEL Administration Atorvastatin Calcium 5 mg 08/15/17 17:00 08/16/17 17:13 Lipitor* PO 5 mg 1700 RAFAEL Administration Brimonidine Tartrate 1 drop 08/15/17 09:00 08/17/17 08:16 Alphagan P 0.1% (Nf) BOTH EYES 1 drop BID RAFAEL Administration Dextrose 12.5 gm 08/15/17 08:53 D50w Syringe 50 Ml* IV PUSH .FOR FS < 60 - SS PRN FS < 60 Docusate Sodium 100 mg 08/15/17 08:43 Colace Cap* PO BID PRN CONSTIPATION Ferrous Sulfate 325 mg 08/15/17 09:00 08/17/17 08:16 Ferrous Sulfate Tab* PO 325 mg BID RAFAEL Administration Fluoxetine HCl 20 mg 08/15/17 09:00 08/17/17 08:17 Prozac Cap* PO 20 mg DAILY RAFAEL Administration Fluticasone Propionate 1 spray 08/15/17 09:00 08/17/17 08:17 Flonase Nasal [place] 50mcg* BOTH NARES Not Given DAILY RAFAEL Ibuprofen 400 mg 08/15/17 08:56 08/17/17 10:03 Motrin Tab* PO 400 mg Q6H PRN Administration PAIN Insulin Human Lispro 0 units 08/15/17 16:30 08/17/17 12:56 Humalog* SUBCUT 6 units ACHS RAFAEL Administration Protocol Levofloxacin 500 mg 08/17/17 17:00 Levaquin Tab* PO 08/19/17 23:59 Q24H RAFAEL Losartan Potassium 25 mg 08/15/17 09:00 08/17/17 08:17 Cozaar Tab* PO 25 mg DAILY RAFAEL Administration Metformin HCl 750 mg 08/15/17 17:00 08/17/17 08:16 Glucophage* PO 750 mg 0800,1700 RAFAEL Administration Multivitamins 1 tab 08/15/17 09:00 08/17/17 08:17 Theragran Tab* PO 1 tab DAILY RAFAEL Administration Oxycodone/Acetaminophen 1 tab 08/15/17 08:57 08/17/17 14:14 Percocet 5/325 Tab* PO 1 tab Q4H PRN Administration PAIN Senna 2 tab 08/15/17 08:43 Senokot Tab* PO BEDTIME PRN CONSTIPATION Vital Signs: Vital Signs Temp Pulse Resp BP Pulse Ox 98.1 F 99 16 155/79 95 08/17/17 05:34 08/17/17 05:34 08/17/17 14:18 08/17/17 05:34 08/17/17 05:34 Lab Results: Laboratory Results - last 24 hr 08/16/17 08/17/17 08/17/17 20:27 07:40 12:00 POC Glucose (mg/dL) 256 H 209 H 201 H 08/17/17 16:44 POC Glucose (mg/dL) 242 H Exam: LUNGS: Clear HEART: reg rhythm ABDOMEN: Soft, +BS EXTREMITIES: Wound C/D/I. PPI. Some ecchymoses at right calf NEUROLOGIC: A & O. Exam non-focal. Assessment/Plan: 1. Right TKA: PT/OT 2. Diabetes: Metformin. BS a little high 3. Increased WBC with possible cellulitis: Levaquin now PO, day 07/05 4. Depresssion: Fluoxetine 5. DVT Prophylaxis: ASA/TEDS 6. HTN: Cozaar 7. Advanced Directives: Full code. Son is HCP. 08/17/17 17:13
[2017-08-17] MEDS: Atorvastatin* 10 MG TAB PO SCH (17:16)
[2017-08-17] MEDS ORDERED: metFORMIN* 500 MG TAB PO ONE (20:00)
[2017-08-18] MEDS: oxyCODONE/Acetamin 5/325 MG* TAB PO PRN ×4 (03:47→20:49)
[2017-08-18] MEDS: Acetaminophen TAB* 325 MG PO PRN (05:55)
[2017-08-18] MEDS: BRIMONIDINE P 0.1% BOTH EYES SCH ×2 (08:00→20:52)
[2017-08-18] MEDS: Insulin LISPRO* 1 UNITS UNIT SUBCUT SCH ×4 (08:03→20:50)
[2017-08-18] MEDS: Losartan TAB* 25 MG PO SCH (08:04)
[2017-08-18] MEDS: metFORMIN* 500 MG TAB PO SCH ×3 (08:04→17:24)
[2017-08-18] MEDS: Ferrous Sulfate TAB* 325 MG PO SCH ×2 (08:04→20:50)
[2017-08-18] MEDS: FLUoxetine CAP* 20 MG PO SCH (08:04)
[2017-08-18] MEDS: Vitamin THERAPEUTIC TAB PO SCH (08:04)
[2017-08-18] MEDS: Aspirin TAB* 325 MG PO SCH (08:04)
[2017-08-18] MEDS: Fluticasone NASAL SPRAY 50MCG* 16 gm SPRAY BTL BOTH NARES SCH (08:10)
[2017-08-18] MEDS: Ibuprofen TAB* 400 MG PO PRN (16:16)
[2017-08-18] MEDS: Levofloxacin TAB* 500 MG PO SCH (17:24)
[2017-08-18] MEDS: Atorvastatin* 10 MG TAB PO SCH (17:24)
--- NOTE | 2017-08-18 19:57 | PN ---
Progress Note Date of Service: 08/18/17 Note: DANIEL BARNES was visited. Therapy notes read and reviewed. She feels good and is walking well. Her knee is warm to touch. Will check CBC in am. On Levaquin, now PO Current Medications: Active Medications Generic Name Dose Route Start Last Admin Trade Name Freq PRN Reason Stop Dose Admin Acetaminophen 650 mg 08/15/17 08:43 08/18/17 05:55 Tylenol Tab* PO 650 mg Q4H PRN Administration FEVER > 101 Al Hydrox/Mg Hydrox/Simethicone 30 ml 08/15/17 08:43 Maalox Plus* PO Q6H PRN INDIGESTION Aspirin 325 mg 08/15/17 09:00 08/18/17 08:04 Aspirin Tab* PO 325 mg DAILY RAFAEL Administration Atorvastatin Calcium 5 mg 08/15/17 17:00 08/18/17 17:24 Lipitor* PO 5 mg 1700 RAFAEL Administration Brimonidine Tartrate 1 drop 08/15/17 09:00 08/18/17 08:00 Alphagan P 0.1% (Nf) BOTH EYES 1 drop BID RAFAEL Administration Dextrose 12.5 gm 08/15/17 08:53 D50w Syringe 50 Ml* IV PUSH .FOR FS < 60 - SS PRN FS < 60 Docusate Sodium 100 mg 08/15/17 08:43 Colace Cap* PO BID PRN CONSTIPATION Ferrous Sulfate 325 mg 08/15/17 09:00 08/18/17 08:04 Ferrous Sulfate Tab* PO 325 mg BID RAFAEL Administration Fluoxetine HCl 20 mg 08/15/17 09:00 08/18/17 08:04 Prozac Cap* PO 20 mg DAILY RAFAEL Administration Fluticasone Propionate 1 spray 08/15/17 09:00 08/18/17 08:10 Flonase Nasal [place] 50mcg* BOTH NARES Not Given DAILY RAFAEL Ibuprofen 400 mg 08/15/17 08:56 08/18/17 16:16 Motrin Tab* PO 400 mg Q6H PRN Administration PAIN Insulin Human Lispro 0 units 08/15/17 16:30 08/18/17 17:25 Humalog* SUBCUT 6 units ACHS RAFAEL Administration Protocol Levofloxacin 500 mg 08/17/17 17:00 08/18/17 17:24 Levaquin Tab* PO 06/21/18 23:59 500 mg Q24H RAFAEL Administration Losartan Potassium 25 mg 08/15/17 09:00 08/18/17 08:04 Cozaar Tab* PO 25 mg DAILY RAFAEL Administration Metformin HCl 500 mg 08/18/17 08:00 08/18/17 17:24 Glucophage* PO 500 mg 0800,1200,1700 RAFAEL Administration Multivitamins 1 tab 08/15/17 09:00 08/18/17 08:04 Theragran Tab* PO 1 tab DAILY RAFAEL Administration Oxycodone/Acetaminophen 1 tab 08/15/17 08:57 08/18/17 12:47 Percocet 5/325 Tab* PO 1 tab Q4H PRN Administration PAIN Senna 2 tab 08/15/17 08:43 Senokot Tab* PO BEDTIME PRN CONSTIPATION Vital Signs: Vital Signs Temp Pulse Resp BP Pulse Ox 99.0 F 83 18 155/75 96 08/18/17 15:38 08/18/17 15:38 08/18/17 18:50 08/18/17 15:38 08/18/17 19:54 Lab Results: Laboratory Results - last 24 hr 08/17/17 08/18/17 08/18/17 20:25 07:39 11:48 POC Glucose (mg/dL) 236 H 211 H 183 H 08/18/17 16:31 POC Glucose (mg/dL) 206 H Exam: LUNGS: Clear HEART: reg rhythm ABDOMEN: Soft, +BS EXTREMITIES: Wound C/D/I. PPI. Some ecchymoses at right calf NEUROLOGIC: A & O. Exam non-focal. Assessment/Plan: 1. Right TKA: PT/OT 2. Diabetes: Metformin, now TID. BS a little high 3. Increased WBC with possible cellulitis: Levaquin now PO, day 08/05. Check CBC in am 4. Depresssion: Fluoxetine 5. DVT Prophylaxis: ASA/TEDS 6. HTN: Cozaar 7. Advanced Directives: Full code. Son is HCP. 08/18/17 19:58
[2017-08-19] MEDS: Ibuprofen TAB* 400 MG PO PRN ×4 (01:12→18:31)
[2017-08-19] MEDS: Acetaminophen TAB* 325 MG PO PRN ×2 (05:25→21:33)
[2017-08-19 06:52] LABS: Hematocrit 26 % (35-47); Hemoglobin 8.7 g/dl (12.0-16.0); Mean Corpuscular HGB Conc 34 g/dl (31-36); Mean Corpuscular Hemoglobin 29 pg (27-31); Mean Corpuscular Volume 86 fL (80-97); Mean Platelet Volume 6.2 um3 (7.4-10.4); Platelet Count 447 10^3/ul (150-450); Red Blood Count 2.97 10^6/ul (4.00-5.40); Red Cell Distribution Width 15 % (10.5-15); White Blood Count 9.6 10^3/ul (3.5-10.8)
[2017-08-19] MEDS: Insulin LISPRO* 1 UNITS UNIT SUBCUT SCH ×4 (08:08→21:25)
[2017-08-19] MEDS: metFORMIN* 500 MG TAB PO SCH ×3 (08:09→16:37)
[2017-08-19] MEDS: Ferrous Sulfate TAB* 325 MG PO SCH ×2 (08:09→21:26)
[2017-08-19] MEDS: Aspirin TAB* 325 MG PO SCH (08:09)
[2017-08-19] MEDS: Losartan TAB* 25 MG PO SCH (08:10)
[2017-08-19] MEDS: Vitamin THERAPEUTIC TAB PO SCH (08:10)
[2017-08-19] MEDS: FLUoxetine CAP* 20 MG PO SCH (08:10)
[2017-08-19] MEDS: Fluticasone NASAL SPRAY 50MCG* 16 gm SPRAY BTL BOTH NARES SCH (08:11)
[2017-08-19] MEDS: BRIMONIDINE P 0.1% BOTH EYES SCH ×2 (08:20→21:26)
[2017-08-19 09:13] LABS: ABS Basophils 0.1 10^3/ul (0-0.2); ABS Eosinophils 0.4 10^3/ul (0-0.6); ABS Lymphocytes 1.7 10^3/ul (1.0-4.8); ABS Monocytes 0.7 10^3/ul (0-0.8); ABS Neutrophils 6.7 10^3/ul (1.5-7.7)
[2017-08-19 09:14] LABS: ABS Nucleated RBC 0 10^3/ul; Lymphocyte % 17.9 % (25-47); Nucleated Red Blood Cells % 0
[2017-08-19] MEDS: oxyCODONE/Acetamin 5/325 MG* TAB PO PRN ×3 (10:44→23:24)
[2017-08-19] MEDS: Levofloxacin TAB* 500 MG PO SCH (16:37)
[2017-08-19] MEDS: Atorvastatin* 10 MG TAB PO SCH (16:37)
--- NOTE | 2017-08-19 17:02 | PN ---
Progress Note Date of Service: 08/19/17 Note: DANIEL BARNES was visited. Therapy notes read and reviewed. Her WBC have normalized. She is doing pretty well and ready for discharge. BS in low 200s Current Medications: Active Medications Generic Name Dose Route Start Last Admin Trade Name Freq PRN Reason Stop Dose Admin Acetaminophen 650 mg 08/15/17 08:43 08/19/17 05:25 Tylenol Tab* PO 650 mg Q4H PRN Administration FEVER > 101 Al Hydrox/Mg Hydrox/Simethicone 30 ml 08/15/17 08:43 Maalox Plus* PO Q6H PRN INDIGESTION Aspirin 325 mg 08/15/17 09:00 08/19/17 08:09 Aspirin Tab* PO 325 mg DAILY RAFAEL Administration Atorvastatin Calcium 5 mg 08/15/17 17:00 08/19/17 16:37 Lipitor* PO 5 mg 1700 RAFAEL Administration Brimonidine Tartrate 1 drop 08/15/17 09:00 08/19/17 08:20 Alphagan P 0.1% (Nf) BOTH EYES 1 drop BID RAFAEL Administration Dextrose 12.5 gm 08/15/17 08:53 D50w Syringe 50 Ml* IV PUSH .FOR FS < 60 - SS PRN FS < 60 Docusate Sodium 100 mg 08/15/17 08:43 Colace Cap* PO BID PRN CONSTIPATION Ferrous Sulfate 325 mg 08/15/17 09:00 08/19/17 08:09 Ferrous Sulfate Tab* PO 325 mg BID RAFAEL Administration Fluoxetine HCl 20 mg 08/15/17 09:00 08/19/17 08:10 Prozac Cap* PO 20 mg DAILY RAFAEL Administration Fluticasone Propionate 1 spray 08/15/17 09:00 08/19/17 08:11 Flonase Nasal [place] 50mcg* BOTH NARES Not Given DAILY RAFAEL Ibuprofen 400 mg 08/15/17 08:56 08/19/17 13:08 Motrin Tab* PO 400 mg Q6H PRN Administration PAIN Insulin Human Lispro 0 units 08/15/17 16:30 08/19/17 12:28 Humalog* SUBCUT 3 units ACHS RAFAEL Administration Protocol Levofloxacin 500 mg 08/17/17 17:00 08/19/17 16:37 Levaquin Tab* PO 08/19/17 23:59 500 mg Q24H RAFAEL Administration Losartan Potassium 25 mg 08/15/17 09:00 08/19/17 08:10 Cozaar Tab* PO 25 mg DAILY RAFAEL Administration Metformin HCl 500 mg 08/18/17 08:00 08/19/17 16:37 Glucophage* PO 500 mg 0800,1200,1700 RAFAEL Administration Multivitamins 1 tab 08/15/17 09:00 08/19/17 08:10 Theragran Tab* PO 1 tab DAILY RAFAEL Administration Oxycodone/Acetaminophen 1 tab 08/15/17 08:57 08/19/17 14:49 Percocet 5/325 Tab* PO 1 tab Q4H PRN Administration PAIN Senna 2 tab 08/15/17 08:43 Senokot Tab* PO BEDTIME PRN CONSTIPATION Vital Signs: Vital Signs Temp Pulse Resp BP Pulse Ox 98.2 F 102 18 149/69 96 08/19/17 14:55 08/19/17 14:55 08/19/17 15:39 08/19/17 14:55 08/19/17 14:55 Lab Results: Laboratory Results - last 24 hr 08/18/17 08/19/17 08/19/17 20:23 06:20 07:43 WBC 9.6 RBC 2.97 L Hgb 8.7 L Hct 26 L MCV 86 MCH 29 MCHC 34 RDW 15 Plt Count 447 MPV 6.2 L Neut % (Auto) 70.0 Lymph % (Auto) 17.9 L [place] % (Auto) 7.5 H Eos % (Auto) 4.0 Baso % (Auto) 0.6 Absolute Neuts (auto) 6.7 Absolute Lymphs (auto) 1.7 Absolute Monos (auto) 0.7 Absolute Eos (auto) 0.4 Absolute Basos (auto) 0.1 Absolute Nucleated RBC 0 Nucleated RBC % 0 POC Glucose (mg/dL) 182 H 188 H 08/19/17 08/19/17 12:05 16:39 WBC RBC Hgb Hct MCV MCH MCHC RDW Plt Count MPV Neut % (Auto) Lymph % (Auto) [place] % (Auto) Eos % (Auto) Baso % (Auto) Absolute Neuts (auto) Absolute Lymphs (auto) Absolute Monos (auto) Absolute Eos (auto) Absolute Basos (auto) Absolute Nucleated RBC Nucleated RBC % POC Glucose (mg/dL) 185 H 162 H Exam: LUNGS: Clear HEART: reg rhythm ABDOMEN: Soft, +BS EXTREMITIES: Wound C/D/I. PPI. Some ecchymoses at right calf and over knee NEUROLOGIC: A & O. Exam non-focal. Assessment/Plan: 1. Right TKA: PT/OT 2. Diabetes: Metformin, now TID. BS a little high 3. Increased WBC with possible cellulitis: Levaquin now PO, day 7. WBC normal 4. Depresssion: Fluoxetine 5. DVT Prophylaxis: ASA/TEDS 6. HTN: Cozaar 7. Advanced Directives: Full code. Son is HCP. 08/19/17 17:02
[2017-08-20] MEDS: Ibuprofen TAB* 400 MG PO PRN (04:47)
[2017-08-20 05:36] VITALS: BP 147/64
[2017-08-20] MEDS: Acetaminophen TAB* 325 MG PO PRN (06:49)
[2017-08-20] MEDS: metFORMIN* 500 MG TAB PO SCH (08:30)
[2017-08-20] MEDS: Ferrous Sulfate TAB* 325 MG PO SCH (08:31)
[2017-08-20] MEDS: Aspirin TAB* 325 MG PO SCH (08:31)
[2017-08-20] MEDS: FLUoxetine CAP* 20 MG PO SCH (08:31)
[2017-08-20] MEDS: Vitamin THERAPEUTIC TAB PO SCH (08:31)
[2017-08-20] MEDS: Losartan TAB* 25 MG PO SCH (08:31)
[2017-08-20] MEDS: Insulin LISPRO* 1 UNITS UNIT SUBCUT SCH (08:32)
[2017-08-20] MEDS: Fluticasone NASAL SPRAY 50MCG* 16 gm SPRAY BTL BOTH NARES SCH (08:35)
[2017-08-20] MEDS: BRIMONIDINE P 0.1% BOTH EYES SCH (08:35)
--- NOTE | 2017-08-24 05:54 | DS ---
CC: Dr. Tin Allison * DISCHARGE SUMMARY: DATE OF ADMISSION: 08/15/17 DATE OF DISCHARGE: 08/20/17 DISCHARGE DIAGNOSES: 1. Right total knee replacement. 2. Diabetes mellitus. 3. Hypertension. 4. Hyperlipidemia. 5. Probable cellulitis. HISTORY OF ILLNESS AND HOSPITAL COURSE: For complete history of the events leading up to her rehab stay, please see the history and physical dictated by Dr. Cara Rangel on 08/15/17. While on the rehab unit, the patient completed her 7-day course of Levaquin. Her white blood cell count while on the rehab unit went down from 11.2 to 9.6 at the time of discharge. Her hemoglobin and hematocrit remained stable. She was maintained on aspirin for DVT prophylaxis per Orthopedic Surgery. The patient was otherwise medically stable. Her wound remained clean and dry. The patient was seen by Physical and Occupational Therapy and made good gains with both disciplines. With physical therapy at the time of admission, the patient required contact guard to do a transfer, contact guard to ambulate 150 feet. With occupational therapy at the time of admission, the patient required min assist for lower body dressing, supervision for upper body dressing, contact guard for toileting , contact for toilet transfers. By the time of discharge, the patient was independent with transfers, independent with ambulating of 150 feet, independent with her activities of daily living including toileting and toilet transfer and dressing. The patient was discharged home on 08/20/17. DISCHARGE DIET: Consistent carbohydrate. DISCHARGE MEDICATIONS: 1. Aspirin 325 mg daily. 2. Alphagan eye drops 1 drop to both eyes twice daily. 3. Prozac 20 mg daily. 4. Flonase nasal spray 1 spray to both nares daily. 5. Metformin 500 mg at 8 a.m., 12 noon and 5 p.m. 6. Percocet 5/325 mg 1 tablet every 4 hours as needed. 7. Zocor 10 mg every evening. 8. Avapro 75 mg daily. SERVICES AFTER DISCHARGE: Through visiting nurse service, she will have home nursing, home physical therapy and home health aide. Follow up with Dr. Richar Antunez in 1 to 2 weeks and with her primary care doctor, Dr. Tin Allison. [id number]/[facility] #: [id number] [facility]
== END 2017-08-20 10:22 | disposition home health service (06) | DRG 560 ==
LOC: PMRU 10:40
PROVIDERS: ADMIT Physical Medicine & Rehabilitation; ATTEND Physical Medicine & Rehabilitation
PROC: F07Z5ZZ Bed Mobility Treatment (ICD-10-PCS; principal; 2017-08-15)
PROC: F07Z9ZZ Gait Training/Functional Ambulation Treatment (ICD-10-PCS; 2017-08-15)
PROC: F07Z8ZZ Transfer Training Treatment (ICD-10-PCS; 2017-08-15)
PROC: F08Z0ZZ Bathing/Showering Techniques Treatment (ICD-10-PCS; 2017-08-15)
PROC: F08Z1ZZ Dressing Techniques Treatment (ICD-10-PCS; 2017-08-15)
PROC: F08Z3ZZ Feeding/Eating Treatment (ICD-10-PCS; 2017-08-15)
DX: Z47.1 Aftercare following joint replacement surgery (principal); Z68.41 Body mass index [BMI] 40.0-44.9, adult; L03.115 Cellulitis of right lower limb; Z96.651 Presence of right artificial knee joint; E11.9 Type 2 diabetes mellitus without complications; E66.9 Obesity, unspecified; I10 Essential (primary) hypertension; E78.5 Hyperlipidemia, unspecified; G47.33 Obstructive sleep apnea (adult) (pediatric); F32.9 Major depressive disorder, single episode, unspecified; H40.9 Unspecified glaucoma; E04.1 Nontoxic single thyroid nodule; R00.0 Tachycardia, unspecified; J30.2 Other seasonal allergic rhinitis; Z79.1 Long term (current) use of non-steroidal anti-inflammatories (NSAID); Z79.84 Long term (current) use of oral hypoglycemic drugs; Z79.82 Long term (current) use of aspirin; Z79.899 Other long term (current) drug therapy; Z88.5 Allergy status to narcotic agent; Z88.0 Allergy status to penicillin; Z88.8 Allergy status to other drugs, medicaments and biological substances; Z91.048 Other nonmedicinal substance allergy status; Z82.61 Family history of arthritis; Z82.49 Family history of ischemic heart disease and other diseases of the circulatory system
CPT/HCPCS: 36415; 80053; 85025; A9270-GY; J1956

== ENCOUNTER 2022-03-05 14:42 | Inpatient (IN) ==
[2022-03-05 15:45] LABS: ABS Basophils 0.1 10^3/ul (0-0.2); ABS Eosinophils 0.8 10^3/ul (0-0.6); ABS Lymphocytes 2.2 10^3/ul (1.0-4.8); ABS Monocytes 0.8 10^3/ul (0-0.8); ABS Neutrophils 8.8 10^3/ul (1.5-7.7); Eosinophil % 5.9 %; Hematocrit 40 % (35-47); Hemoglobin 12.7 g/dL (12.0-16.0); Lymphocyte % 17.2 %; Mean Corpuscular HGB Conc 32 g/dL (31-36); Mean Corpuscular Hemoglobin 28 pg (27-31); Mean Corpuscular Volume 88 fL (80-97); Nucleated Red Blood Cells % 0.1; Platelet Count 287 10^3/uL (150-450); Red Blood Count 4.53 10^6 /uL (3.70-4.87); Red Cell Distribution Width 15 % (10-15); White Blood Count 12.8 10^3/uL (3.5-10.8)
[2022-03-05 15:52] LABS: INR 1.1 (0.88-1.18)
[2022-03-05 16:42] LABS: Albumin 3.6 g/dL (3.2-5.2); Albumin/Globulin Ratio 1.2 (1-3); Globulin 2.9 g/dL (2-4); Potassium 3.9 mmol/L (3.5-5.0); Total Bilirubin 0.3 mg/dL (0.2-1.0); Total Protein 6.5 g/dL (6.4-8.9); eGFR CKD-EPI 90.7 (>60)
[2022-03-05] MEDS ORDERED: nitroGLYCERIN DRIP 25,000 MCG/250 ML BTL IV SCH (17:00)
[2022-03-05 17:22] LABS: High Sensitivity Troponin 1 Hr 374 pg/mL (<15)
[2022-03-05] MEDS ORDERED: Heparin DRIP 25,000 UNITS BAG 25,000 UNITS/500 ML BAG IV SCH (17:30)
[2022-03-05] MEDS ORDERED: Iodixanol (CONTRAST) 320 MG/ML 100 ML SDV IV ONE (17:32)
[2022-03-05 18:03] LABS: Activated Partial Thrombo Time 32.5 seconds (26.0-38.0)
[2022-03-05] MEDS: Heparin 5000 UNITS/ML 1 mL VIAL IV SCH (18:27)
[2022-03-05] MEDS ORDERED: Dextrose 50% Syringe 50 ml 25 GM/50 ML SYRINGE IV PUSH PRN (21:08)
[2022-03-05] MEDS ORDERED: Morphine 2 MG/ML SYRINGE IV PRN (21:09)
[2022-03-05] MEDS ORDERED: Metoprolol Tartrate 5 mg VIAL 5 ml VIAL (1 mg/ml) IV ONE (21:22)
[2022-03-05] MEDS ORDERED: Simvastatin 20 mg TAB (NF) PO SCH (22:00)
[2022-03-05 23:27] LABS: High Sensitivity Troponin 3 Hr 2289 pg/mL (<15)
[2022-03-05 23:28] LABS: Activated Partial Thrombo Time 43.9 seconds (26.0-38.0)
[2022-03-05] MEDS: Brimonidine P 0.1%(NF) 1 DROP BTL BOTH EYES SCH (23:34)
[2022-03-06] MEDS: Heparin 5000 UNITS/ML 1 mL VIAL IV SCH (00:33)
[2022-03-06] MEDS: SOLIFENACIN 5 MG PO SCH ×2 (00:33→20:54)
[2022-03-06 05:16] LABS: ABS Basophils 0.1 10^3/ul (0-0.2); ABS Eosinophils 0.6 10^3/ul (0-0.6); ABS Lymphocytes 2.2 10^3/ul (1.0-4.8); ABS Neutrophils 8.6 10^3/ul (1.5-7.7); Eosinophil % 5.1 %; Hematocrit 35 % (35-47); Hemoglobin 11.2 g/dL (12.0-16.0); Lymphocyte % 17.5 %; Mean Corpuscular HGB Conc 32 g/dL (31-36); Mean Corpuscular Hemoglobin 28 pg (27-31); Mean Corpuscular Volume 89 fL (80-97); Platelet Count 257 10^3/uL (150-450); Red Blood Count 3.98 10^6 /uL (3.70-4.87); Red Cell Distribution Width 15 % (10-15); White Blood Count 12.5 10^3/uL (3.5-10.8)
[2022-03-06 05:58] LABS: Magnesium 1.3 mg/dL (1.9-2.7); Potassium 3.6 mmol/L (3.5-5.0)
[2022-03-06 06:04] LABS: eGFR CKD-EPI 95.5 (>60)
[2022-03-06] MEDS ORDERED: Potassium Chlor 20 meq TAB.ER PO ONE (07:28)
[2022-03-06] MEDS ORDERED: Magnesium Sulf 4 GM/100 ML IV 4,000 MG/100 ML BAG IVPB ONE (07:28)
[2022-03-06] MEDS: KCL 20 MEQ/100 ML IVPREMIX 20 MEQ/100 ML BAG IV SCH ×2 (08:23→11:26)
[2022-03-06] MEDS: Brimonidine P 0.1%(NF) 1 DROP BTL BOTH EYES SCH ×2 (08:27→20:54)
[2022-03-06] MEDS ORDERED: NS 0.9% 1000 ml BAG 1,000 ML IV SCH (08:45)
[2022-03-06] MEDS ORDERED: Aspirin EC 81 mg TAB.EC (enteric coated) PO SCH (09:00)
[2022-03-06] MEDS ORDERED: Sulfur Hexaflouride MICROSPHR 25 MG VIAL ONE (09:08)
[2022-03-06] MEDS ORDERED: nitroGLYCERIN DRIP 25,000 MCG/250 ML BTL ONE (11:14)
[2022-03-06] MEDS ORDERED: fentaNYL 100 mcg/2 ml 50 MCG/ML VIAL ONE (11:14)
[2022-03-06] MEDS ORDERED: Iohexol 350 (CONTRAST) 100 ML PAK IV ONE (11:14)
[2022-03-06] MEDS ORDERED: Midazolam 5 mg/5 ml VIAL 1 mg/ml 5 ml VIAL (5 mg) ONE (11:14)
[2022-03-06] MEDS ORDERED: Heparin 1,000 UNIT/ML 10 ml (10,000 UNITS) CATHLAB/DIALYSIS ONE (11:14)
[2022-03-06] MEDS ORDERED: Lidocaine 1% MPF 5 ML VIAL ONE (11:14)
[2022-03-06] MEDS ORDERED: Heparin 2 UNITS/ML 1000 mls 2,000 ML IV ONE (11:14)
[2022-03-06] MEDS ORDERED: niCARdipine 0.1MG/ML IVPREMIX 20 MG/200 ML BAG IV ONE (11:15)
[2022-03-06] MEDS ORDERED: Ondansetron 4 mg VIAL 2 MG/ML 2 ml VIAL IV PRN (13:14)
[2022-03-06] MEDS ORDERED: Albuterol HFA INHALER 8 gm MDI INH PRN (20:14)
[2022-03-06] MEDS ORDERED: Fluticasone HFA 110 mcg(NF) MDI INH SCH (21:00)
[2022-03-07 04:44] LABS: ABS Basophils 0.1 10^3/ul (0-0.2); ABS Eosinophils 0.5 10^3/ul (0-0.6); ABS Lymphocytes 1.9 10^3/ul (1.0-4.8); ABS Monocytes 1.3 10^3/ul (0-0.8); ABS Neutrophils 10.4 10^3/ul (1.5-7.7); Eosinophil % 3.6 %; Hematocrit 37 % (35-47); Hemoglobin 12.1 g/dL (12.0-16.0); Lymphocyte % 13.3 %; Mean Corpuscular HGB Conc 33 g/dL (31-36); Mean Corpuscular Hemoglobin 29 pg (27-31); Mean Corpuscular Volume 88 fL (80-97); Mean Platelet Volume 7.1 fL (7.4-10.4); Platelet Count 263 10^3/uL (150-450); Red Blood Count 4.24 10^6 /uL (3.70-4.87); Red Cell Distribution Width 15 % (10-15); White Blood Count 14.3 10^3/uL (3.5-10.8)
[2022-03-07 05:11] LABS: Albumin 3.4 g/dL (3.2-5.2); Albumin/Globulin Ratio 1.3 (1-3); Calcium 8.1 mg/dL (8.6-10.3); Globulin 2.7 g/dL (2-4); HDL Cholesterol 38.9 mg/dL; Magnesium 1.9 mg/dL (1.9-2.7); Potassium 3.8 mmol/L (3.5-5.0); Total Bilirubin 0.5 mg/dL (0.2-1.0); Total Protein 6.1 g/dL (6.4-8.9)
[2022-03-07] MEDS ORDERED: Potassium Chloride LIQUID 20 MEQ/15 ML LIQUID PO ONE (05:52)
[2022-03-07] MEDS ORDERED: Magnesium Sulfate IV 1GM/100ML 1 GM/100 ML BAG IV ONE (05:52)
[2022-03-07] MEDS: Brimonidine P 0.1%(NF) 1 DROP BTL BOTH EYES SCH ×2 (08:26→21:42)
[2022-03-07] MEDS ORDERED: Enoxaparin 40 MG/0.4 ML SYR SUBCUT SCH (13:00)
[2022-03-07] MEDS: Mometasone 220 MCG MDI INH SCH (20:27)
[2022-03-07] MEDS: SOLIFENACIN 5 MG PO SCH (21:47)
[2022-03-08 07:08] LABS: Calcium 8.1 mg/dL (8.6-10.3); Magnesium 1.9 mg/dL (1.9-2.7); Potassium 4.4 mmol/L (3.5-5.0); eGFR CKD-EPI 93.4 (>60)
[2022-03-08] MEDS: Mometasone 220 MCG MDI INH SCH (07:10)
[2022-03-08] MEDS: Brimonidine P 0.1%(NF) 1 DROP BTL BOTH EYES SCH (09:03)
[2022-03-08 09:18] VITALS: BP 128/50
== END 2022-03-08 11:05 | disposition home or self-care (01) | DRG 247 ==
LOC: ED 14:42 → SUATTDRO 20:51 → EDHOLD 20:51 → ICU 21:25 → MEDTELE 03-07 12:14
PROVIDERS: ADMIT Internal Medicine; ATTEND Student in an Organized Health Care Education/Training Program

== ENCOUNTER 2022-08-19 13:10 | Inpatient (IN) ==
[2022-08-19 13:51] LABS: Hematocrit 16.5 % (35-45); Hemoglobin 5.1 g/dL (11.5-14.3); Mean Corpuscular Hemoglobin 24.1 pg (27-33); Mean Corpuscular Hgb Conc 30.9 g/dL (31-36); Mean Platelet Volume 5.8 fL (7.5-11.2); Platelet Count 383 10^3/uL (150-450); Red Blood Count 2.12 10^6/uL (3.63-4.92); Red Cell Distribution Width 17.3 % (12-17); White Blood Count 12.3 10^3/uL (3.8-11.8)
[2022-08-19 14:00] LABS: INR 1.13 (0.88-1.18)
[2022-08-19 14:05] LABS: Albumin 3.6 g/dL (3.2-5.2); Calcium 9.1 mg/dL (8.6-10.3); Creatinine, Serum 0.67 mg/dL (0.51-0.95); Globulin 3.5 g/dL (2-4); Potassium 4.1 mmol/L (3.5-5.0); Total Bilirubin 0.2 mg/dL (0.2-1.0); Total Protein 7.1 g/dL (6.4-8.9); eGFR CKD-EPI 88.9 (>60)
[2022-08-19 14:19] LABS: ABS Basophils 0.1 10^3/uL (0.0-0.1); ABS Eosinophils 0.4 10^3/uL (0.0-0.5); ABS Lymphocytes 2.1 10^3/uL (1.0-4.8); ABS Neutrophils 8.7 10^3/uL (1.5-7.6); ABS Nucleated RBC 0.02 10^3/ul; Eosinophil % 3.1 %; Nucleated Red Blood Cells % 0.2 /100 WBC (0.0-0.4)
[2022-08-19 14:49] LABS: Magnesium 1.7 mg/dL (1.9-2.7)
[2022-08-19] MEDS ORDERED: Iodixanol (CONTRAST) 320 MG/ML 100 ML SDV IV ONE (15:10)
[2022-08-19 15:14] LABS: High Sensitivity Troponin 1 Hr 9 pg/mL (<15)
[2022-08-19 15:28] LABS: Corrected Retic Count 1.3 % (0.5-1.5); Hematocrit for Retic CNT 16.6 % (35-45); Immature Retic Fraction 0.58; RBC Retic Count 2.11 10^6/ul (3.63-4.92)
[2022-08-19 15:58] LABS: % Iron Saturation 4 % (15-55); .Transferrin 400 mg/dL (203-362); Iron < 20 ug/dL (50-212); Total Iron Binding Capacity 560 mcg/dL (250-450); Unsaturated Iron Binding 540 ug/dL
[2022-08-19 16:04] LABS: Folate 18.37 ng/mL (5.90-24.80)
[2022-08-19 16:05] LABS: Vitamin B12 239 pg/mL (180-914)
[2022-08-19 17:20] LABS: Urine Appearance Clear; Urine Bilirubin Negative (Negative); Urine Blood Negative (Negative); Urine Color Colorless; Urine Glucose Negative (Negative); Urine Ketones Negative (Negative); Urine Nitrite Negative (Negative); Urine Protein Negative (Negative); Urine Urobilinogen Negative (Negative)
[2022-08-19] MEDS ORDERED: Albuterol HFA INHALER 8 gm MDI INH PRN (17:47)
[2022-08-19] MEDS ORDERED: Pantoprazole VIAL 40 MG VIAL IV ONE (17:50)
[2022-08-19] MEDS ORDERED: Magnesium Sulfate 2 gm BAG 2 GM/50 ML BAG IVPB ONE (18:11)
[2022-08-19] MEDS ORDERED: Dextrose 50% Syringe 50 ml 25 GM/50 ML SYRINGE IV PUSH PRN (18:40)
[2022-08-19 18:43] LABS: LDH 178 U/L (140-271)
[2022-08-19 19:40] LABS: Hematocrit 19.8 % (35-45)
[2022-08-19] MEDS ORDERED: SOLIFENACIN 5 MG PO SCH (21:00)
[2022-08-19] MEDS: BRIMONIDINE P 0.1% BOTH EYES SCH (22:07)
[2022-08-20 03:16] LABS: ABS Basophils 0.1 10^3/uL (0.0-0.1); ABS Eosinophils 0.4 10^3/uL (0.0-0.5); ABS Lymphocytes 2.1 10^3/uL (1.0-4.8); ABS Nucleated RBC 0.01 10^3/ul; Eosinophil % 3.9 %; Hematocrit 24.7 % (35-45); Hemoglobin 7.9 g/dL (11.5-14.3); Lymphocyte % 18.3 %; Mean Corpuscular Hemoglobin 25.5 pg (27-33); Mean Corpuscular Hgb Conc 31.9 g/dL (31-36); Mean Corpuscular Volume 79.9 fL (80-97); Mean Platelet Volume 5.9 fL (7.5-11.2); Nucleated Red Blood Cells % 0.1 /100 WBC (0.0-0.4); Platelet Count 357 10^3/uL (150-450); Red Blood Count 3.09 10^6/uL (3.63-4.92); Red Cell Distribution Width 15.7 % (12-17); White Blood Count 11.6 10^3/uL (3.8-11.8)
[2022-08-20 03:32] LABS: Calcium 8.9 mg/dL (8.6-10.3); Creatinine, Serum 0.52 mg/dL (0.51-0.95); Potassium 3.9 mmol/L (3.5-5.0); eGFR CKD-EPI 94.5 (>60)
[2022-08-20] MEDS: Pantoprazole VIAL 40 MG VIAL IV SCH ×2 (08:15→21:35)
[2022-08-20] MEDS ORDERED: Iron Sucrose 200 MG in NS 0.9% 100 ml BAG 100 ML IVPB ONE (12:30)
[2022-08-20] MEDS: BRIMONIDINE P 0.1% BOTH EYES SCH ×3 (13:07→21:35)
[2022-08-20] MEDS ORDERED: Lidocaine 2% PF 5 ML VIAL ONE (14:43)
[2022-08-20 14:45] LABS: Magnesium 2.1 mg/dL (1.9-2.7)
[2022-08-20] MEDS ORDERED: fentaNYL 100 mcg/2 ml 50 MCG/ML VIAL ONE (15:14)
[2022-08-20] MEDS ORDERED: PEG 3000 GI LAVAGE 1 GALLON PO ONE ×2 (15:43→20:30)
[2022-08-20] MEDS ORDERED: Naloxone 0.4 mg VIAL 0.4 mg/ml 1 ml VIAL IV PRN (16:00)
[2022-08-20] MEDS ORDERED: Ondansetron 4 mg VIAL 2 MG/ML 2 ml VIAL IV PRN (16:00)
[2022-08-20 17:52] LABS: Hematocrit 25.2 % (35-45); Hemoglobin 8.1 g/dL (11.5-14.3)
[2022-08-20] MEDS: PTO: Mirabegron 50 mg ER TAB (NF) PO SCH (18:43)
[2022-08-20] MEDS: CMCS: Solifenacin 5 mg TAB (NF) PO SCH (21:35)
[2022-08-20 22:47] LABS: Hematocrit 24.3 % (35-45); Hemoglobin 7.9 g/dL (11.5-14.3)
[2022-08-21] MEDS ORDERED: PEG 3000 GI LAVAGE 1 GALLON PO ONE (06:00)
[2022-08-21 06:21] LABS: Hematocrit 23.3 % (35-45); Hemoglobin 7.7 g/dL (11.5-14.3); Mean Corpuscular Hemoglobin 26.5 pg (27-33); Mean Corpuscular Hgb Conc 32.9 g/dL (31-36); Mean Corpuscular Volume 80.5 fL (80-97); Mean Platelet Volume 5.8 fL (7.5-11.2); Platelet Count 356 10^3/uL (150-450); Red Cell Distribution Width 15.8 % (12-17); White Blood Count 9.8 10^3/uL (3.8-11.8)
[2022-08-21 06:47] LABS: Calcium 8.7 mg/dL (8.6-10.3); Creatinine, Serum 0.6 mg/dL (0.51-0.95); Potassium 4.2 mmol/L (3.5-5.0); eGFR CKD-EPI 91.2 (>60)
[2022-08-21] MEDS: BRIMONIDINE P 0.1% BOTH EYES SCH ×2 (08:41→21:34)
[2022-08-21] MEDS: Pantoprazole VIAL 40 MG VIAL IV SCH ×2 (08:44→21:26)
[2022-08-21] MEDS ORDERED: Iron Sucrose 200 MG in NS 0.9% 100 ml BAG 100 ML IVPB SCH (09:00)
[2022-08-21] MEDS: PTO: Mirabegron 50 mg ER TAB (NF) PO SCH ×2 (12:33→19:55)
[2022-08-21] MEDS ORDERED: Midazolam 10 mg/10 ml VIAL 1 mg/ml 10 ml VIAL (10 mg) ONE (15:20)
[2022-08-21] MEDS ORDERED: fentaNYL 100 mcg/2 ml 50 MCG/ML VIAL ONE (15:20)
[2022-08-21] MEDS: Iron Sucrose 200 MG in NS 0.9% 100 ml BAG 100 ML IVPB SCH (18:00)
[2022-08-21 19:42] LABS: Hematocrit 30.2 % (35-45); Hemoglobin 9.4 g/dL (11.5-14.3)
[2022-08-21] MEDS: CMCS: Solifenacin 5 mg TAB (NF) PO SCH (21:25)
[2022-08-22 05:40] LABS: Hematocrit 28.6 % (35-45); Hemoglobin 9.2 g/dL (11.5-14.3); Mean Corpuscular Hemoglobin 26.6 pg (27-33); Mean Corpuscular Hgb Conc 32.3 g/dL (31-36); Mean Corpuscular Volume 82.2 fL (80-97); Platelet Count 347 10^3/uL (150-450); Red Blood Count 3.47 10^6/uL (3.63-4.92); Red Cell Distribution Width 15.9 % (12-17); White Blood Count 10.6 10^3/uL (3.8-11.8)
[2022-08-22] MEDS: Pantoprazole VIAL 40 MG VIAL IV SCH ×2 (08:43→21:25)
[2022-08-22] MEDS: BRIMONIDINE P 0.1% BOTH EYES SCH ×2 (08:44→21:30)
[2022-08-22] MEDS: Iron Sucrose 200 MG in NS 0.9% 100 ml BAG 100 ML IVPB SCH (16:16)
[2022-08-22] MEDS: PTO: Mirabegron 50 mg ER TAB (NF) PO SCH (16:17)
[2022-08-22 18:28] LABS: Hematocrit 27.1 % (35-45); Hemoglobin 8.6 g/dL (11.5-14.3)
[2022-08-22] MEDS: CMCS: Solifenacin 5 mg TAB (NF) PO SCH (21:25)
[2022-08-23 05:37] LABS: Hematocrit 26.3 % (35-45); Hemoglobin 8.5 g/dL (11.5-14.3); Mean Corpuscular Hemoglobin 26.4 pg (27-33); Mean Corpuscular Hgb Conc 32.3 g/dL (31-36); Mean Corpuscular Volume 81.8 fL (80-97); Platelet Count 346 10^3/uL (150-450); Red Blood Count 3.22 10^6/uL (3.63-4.92); Red Cell Distribution Width 16.2 % (12-17); White Blood Count 13.1 10^3/uL (3.8-11.8)
[2022-08-23] MEDS: BRIMONIDINE P 0.1% BOTH EYES SCH (08:27)
[2022-08-23] MEDS: Pantoprazole VIAL 40 MG VIAL IV SCH (08:28)
[2022-08-23 09:38] LABS: Urine Appearance Clear; Urine Bilirubin Negative (Negative); Urine Blood 1+ (Negative); Urine Color Yellow; Urine Glucose Negative (Negative); Urine Ketones Negative (Negative); Urine Nitrite Negative (Negative); Urine Protein Negative (Negative); Urine Specific Gravity 1.013 (1.002-1.030); Urine Urobilinogen Negative (Negative)
[2022-08-23 09:45] LABS: Urine Bacteria Absent (Absent); Urine Red Blood Cell Trace(0-2/hpf) (Absent); Urine Squamous Epithelial Cell Present (Absent); Urine White Blood Cell Absent (Absent)
[2022-08-23] MEDS ORDERED: Iron Sucrose 200 MG in NS 0.9% 100 ml BAG 100 ML IVPB ONE (10:00)
[2022-08-23 11:21] LABS: ABS Basophils 0.1 10^3/uL (0.0-0.1); ABS Eosinophils 0.5 10^3/uL (0.0-0.5); ABS Lymphocytes 2.2 10^3/uL (1.0-4.8); ABS Monocytes 1.3 10^3/uL (0.0-0.9); ABS Neutrophils 9.9 10^3/uL (1.5-7.6); ABS Nucleated RBC 0.04 10^3/ul; Eosinophil % 3.5 %; Lymphocyte % 15.5 %; Mean Corpuscular Hemoglobin 26.5 pg (27-33); Mean Corpuscular Hgb Conc 32.3 g/dL (31-36); Mean Corpuscular Volume 82.1 fL (80-97); Nucleated Red Blood Cells % 0.3 /100 WBC (0.0-0.4); Platelet Count 349 10^3/uL (150-450); Red Blood Count 3.41 10^6/uL (3.63-4.92); Red Cell Distribution Width 16.2 % (12-17); White Blood Count 13.9 10^3/uL (3.8-11.8)
[2022-08-23 12:33] VITALS: BP 138/44
== END 2022-08-23 14:22 | disposition home or self-care (01) | DRG 812 ==
LOC: ED 13:10 → EDHOLD 17:44 → SUATTDRO 17:44 → MEDTELE 22:55
PROVIDERS: ADMIT Internal Medicine; ATTEND Internal Medicine
PROC: O.GIEGD (2022-08-20 15:20)